=== PATIENT | female | born 2000 | race Caucasian/White ===

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

== ENCOUNTER 2023-05-27 17:27 | Emergency (ER) | payer OTHER, SELFPAY ==
[2023-05-27 17:50] VITALS: BP 130/87; PULSE 112; RESP 18; TEMP 36.9; O2SAT 98; BMI 26.9
--- NOTE | 2023-05-27 17:56 | EXP.UTC ---
Discharge Plan Disposition Patient Disposition: Home, Self-Care Condition: Good Prescriptions Prescriptions: No Action sertraline 50 mg tablet 50 mg PO DAILY Referrals Follow up/Referrals: Dionne Robins APRN [Primary Care Provider] - See instructions Activity Restrictions/Add. Instructions Additional Instructions/Restrictions: Drink plenty of fluids. Take tylenol or ibuprofen for pain or fever. Take the medications as directed. Follow up with your regular doctor. GO TO THE ER FOR ANY WORSENING SYMPTOMS Clinical Impressions Clinical Impression: Acute viral syndrome, Exposure to 2019 novel coronavirus Stand Alone Forms Stand Alone Forms: Work/School Release Instructions Patient Instructions: Coronavirus Disease 2019, Preventing the Spread of Coronavirus Discharge Instructions Discharge ED Provider: [place] [facility] General Stated complaint: exposed to covid , no taste, kacie Time Seen by Provider: 05/27/23 17:56 History of Present Illness Provider Complaint: She states that for the past 2 days she has had sore throat, chills, body aches and low grade fever. She has been exposed to covid-19. Related Data Home Medications Medication Instructions Recorded Confirmed sertraline 50 mg tablet 50 mg PO DAILY 05/27/23 05/27/23 Allergies Allergy/AdvReac Type Severity Reaction Status Date / Time No Known Allergies Allergy Verified 05/27/23 17:58 [facility] Disclaimer: The information contained in this section may have been updated after the patient was seen, as this information can be updated by other users. Social History Smoking Status: Never smoker alcohol intake: never current occupational status: employed Travel in the last 8 weeks: None ROS Obtained: Yes All systems reviewed & no additional complaints except as documented Constitutional Constitutional: Reports chills and Reports fever(s) Eyes Eyes: Denies eye discharge ENT Ears, Nose, Mouth, and Throat: Reports as per HPI Cardiovascular Cardiovascular: Denies chest pain Respiratory Respiratory: Denies chest congestion and Reports cough Gastrointestinal Gastrointestingal: Reports nausea; Denies abdominal pain, constipation, cramping, diarrhea or vomiting Musculoskeletal Musculoskeletal: Denies arthralgias Integumentary/Breasts Skin/Breast: Denies rash Neurologic Neurologic: Denies paresthesias Physical Exam General General appearance: alert and in no apparent distress Head Head exam: atraumatic, normocephalic and normal inspection Eye Eye exam: Present normal appearance, PERRL and EOMI ENT ENT exam: Present normal exam, normal oropharynx, mucous membranes moist, TM's normal bilaterally and normal external ear exam Neck Neck exam: Present normal inspection, full ROM and trachea midline; Absent meningismus or lymphadenopathy Chest Chest inspection: Present normal inspection and symmetric chest wall rise; Absent tenderness Respiratory Respiratory exam: Present normal lung sounds bilaterally; Absent respiratory distress Cardiovascular Cardiovascular exam: Present regular rate and normal rhythm; Absent JVD Abdominal Exam Abdominal exam: Present soft and normal bowel sounds; Absent distention, tenderness or guarding Extremities Exam Extremities exam: Present normal inspection, full ROM and normal capillary refill; Absent calf tenderness Back Exam Back exam: Present normal inspection; Absent tenderness Neurological Exam Neurological exam: Present alert and oriented X3 Psychiatric Psychiatric exam: Present normal affect and normal mood Skin Skin exam: Present warm, dry, intact and normal color Lymphatic Lymphatic Findings: no adenopathy Medical Decision Making Medical Records Medical records reviewed: No I reviewed the patient's medical records. Rasheed Inquiry Pt receiving controlled substance: No Lab Data Lab results reviewed: Yes I reviewed the patient's lab results.
[2023-05-27 18:36] VITALS: BP 130/87; PULSE 112; RESP 18; TEMP 36.9; O2SAT 98
== END 2023-05-27 18:35 | disposition home or self-care (01) ==
PROVIDERS: Emergency Provider Nurse Practitioner Family; PCP Nurse Practitioner Family
DX: R09.81 Nasal congestion (principal); R07.0 Pain in throat; R50.9 Fever, unspecified; R43.9 Unspecified disturbances of smell and taste; Z20.822 Contact with and (suspected) exposure to COVID-19
CPT/HCPCS: 87635; 99203; 99212; G0463

== ENCOUNTER 2025-02-11 09:39 | Outpatient (CLI) | payer OTHER, SELFPAY ==
--- OUTSIDE RECORDS SUMMARY | 2025-02-12 12:39 | XMS_ITS | Clinical Summary ---
Author Organization Healthcare Address [address] [place] [address] Care Team Providers Care Lawn Mower Mechanic Name Role Phone Unavailable Primary Care Provider Unavailabl e Social History Tobacco Use Types Packs/Day Years Used Date Smoking Tobacco: Never Assessed Comments Unknown Sex and Gender Information Value Date Recorded Sex Assigned at Not on file Legal Sex Female 7:27 PM EDT Gender Identity Not on file Sexual Orientation Not on file Plan of Treatment Not on file
== END 2025-02-11 23:59 | disposition home or self-care (01) ==
LOC: LAB.DROPOF 02-12 12:37
PROVIDERS: PCP Nurse Practitioner Obstetrics & Gynecology; Visit Provider Nurse Practitioner Obstetrics & Gynecology
DX: Z34.92 Encounter for supervision of normal pregnancy, unspecified, second trimester (principal)
CPT/HCPCS: 87086

== ENCOUNTER 2025-02-27 14:11 | Outpatient (CLI) | payer OTHER, SELFPAY ==
--- OUTSIDE RECORDS SUMMARY | 2025-02-27 14:14 | XMS_ITS | Referral Summary ---
Author Organization [employer] ([place], [place], [place], [place]) Address [address] [place] [address] Care Team Providers Care Heat Regulator Name Role Phone Unavailable Primary Care Provider Unavailabl e Allergies No known active allergies Social History Tobacco Use Types Packs/Day Years Used Date Smoking Tobacco: Every Day Pipe Smokeless Tobacco: Never Tobacco Cessation:Ready to Q uit: Not Asked; Counseling Given: Not Answered Food Insecurity Answer Date Recorded Food run out past 12 months Not on file 07/10 Food did not last past 12 months Not on file 07/28/2023 Employment Answer Date Recorded Help finding and keeping a job Not on file 0 07/28/2023 Family and Community Support Answer Dante e Recorded Help with Day to Day Activities Not on file 07/28/2023 Feeling Lonely or Isolated Not on file 07/28 Educational Attainment Answer Date Rob rded Speak language other than Hungarian at home Not on file 07/28/2023 Want help with school or training Not on file 07/28/2023 Substance Use Answer Date Recorded Used prescription meds for non-medical reasons N ot on file 07/28/2023 Used illegal drugs past 12 months Not on file 07/28/2023 Comments No Sex and Gender Information Value Date Recorded Sex Assigned at Not on file Legal Sex Female 5:11 PM CDT Gender Identity Not on file Sexual Orientation Not on file Last Filed Vital Signs Vital Sign Reading Time Taken Comments Blood Pressure 135/88 12/17/2022 6:26 PM EDT Pulse 95 12/17/2022 6:26 PM EDT Temperature 37 C (98.6 F) 12/17/2022 6:26 PM EDT Respiratory Rate 16 12/17/2022 6:26 PM EDT Oxygen Saturation 97% 12/17/2022 6:26 PM EDT Inhaled Oxygen Concentration - - Weight 63.5 kg (140 lb) 12/17/2022 6:26 PM EDT Height 160 cm (5' 3 ) 12/17/2022 6:26 PM EDT Body Mass Index 24.8 12/17/2022 6:26 PM EDT Plan of Treatment Not on file Insurance AETNA [facility]
--- OUTSIDE RECORDS SUMMARY | 2025-02-27 14:14 | XMS_ITS | Clinical Summary ---
Author Organization Healthcare Address [address] [place] [address] Care Team Providers Care Badger Distiller Operator Name Role Phone Unavailable Primary Care Provider [...]
--- OUTSIDE RECORDS SUMMARY | 2025-02-27 14:14 | XMS_ITS | Clinical Summary ---
Author Organization [employer] ([place], [place], [place], [place]) Address [address] [place] [address] Care Team Providers Care Direct Marketing Specialist Name Role Phone Unavailable Primary Care Provider [...] 0 07/28/2023 Family and Community Support Answer Datne e Recorded Help with Day to Day Activities Not on file 07/28/2023 Feeling Lonely or Isolated Not on file 07/28 Educational Attainment Answer Date Rob rded Speak language other than Albanian at home Not on file 07/28/2023 Want [...] 12/17/2022 6:26 PM EDT Plan of Treatment Health Maintenance Due Date Last Done Comments Depression Screening (12+) 2014 Tobacco Cessation Counseling and Screening (12+) 09/01 HIV Screening 2017 Meningococcal B Vaccine (1 of 2 - Standard) 2018 Hepatitis C Screening 2020 DTAP/TDAP/TD VACCINES (1 - Tdap) 2021 Pneumococcal Vaccine: 0-49 Years (1 of 2 - PCV) 2021 Lipid Panel 2022 Pap Smear 2023 COVID-19 VACCINE (1 - season) 2024 Influenza Vaccine (#1) 2025 Insurance [facility]
[2025-02-27 17:13] LABS: Hematocrit 30.4 % (37.0-47.0); Hemoglobin 10.0 g/dL (12.2-16.2); Immature Granulocytes % 1.3 %; Mean Corpuscular HGB Conc 32.9 g/dL (31.8-35.4); Mean Corpuscular Hemoglobin 28.2 pg (27.0-31.2); Mean Corpuscular Volume 85.6 fl (81-99); Nucleated Red Blood Cells % 0 %; Platelet Count 258 K/mm3 (142-424); Red Blood Count 3.55 M/mm3 (4.20-5.40); Red Cell Distribution Width-SD 40.5 fL; White Blood Count 11.7 K/mm3 (4.8-10.8)
[2025-02-27 17:19] LABS: Glucose 1 Hour 115 mg/dL (74-100)
[2025-02-28 09:41] LABS: RPR W/RFX Titers Nonreactive (Nonreactive)
== END 2025-02-27 23:59 | disposition home or self-care (01) ==
LOC: LAB 14:12
PROVIDERS: Visit Provider Obstetrics & Gynecology
DX: Z34.92 Encounter for supervision of normal pregnancy, unspecified, second trimester (principal)
CPT/HCPCS: 36415; 82947; 85025; 86592

== ENCOUNTER 2025-03-11 11:47 | Outpatient (CLI) | payer OTHER, SELFPAY ==
--- OUTSIDE RECORDS SUMMARY | 2025-03-11 11:58 | XMS_ITS | Clinical Summary ---
Author Organization Healthcare Address [address] [place] [address] Care Team Providers Care Grill Cook Name Role Phone Unavailable Primary Care Provider [...]
--- OUTSIDE RECORDS SUMMARY | 2025-03-11 11:58 | XMS_ITS | Referral Summary ---
Author Organization [employer] ([place], [place], [place], [place]) Address [address] [place] [address] Care Team Providers Care Malt House Supervisor Name Role Phone Unavailable Primary Care Provider [...] Date Rob rded Speak language other than Trinidadian at home Not on file 07/28/2023 Want [...] of Treatment Not on file Insurance [employer]ETNA [facility]
--- OUTSIDE RECORDS SUMMARY | 2025-03-11 11:58 | XMS_ITS | Clinical Summary ---
Author Organization [email or web address] ([place], [place], [place], [place]) Address [address] [place] [address] Care Team Providers Care Taste Tester Name Role Phone Unavailable Primary Care Provider [...] Date Rob rded Speak language other than Kenyan at home Not on file 07/28/2023 Want [...] 2024 Influenza Vaccine (#1) 2025 Insurance AETNA [facility]
[2025-03-11] MEDS: RHO(D) IMMUNE GLOBULIN 1,500 UNIT (300MCG) SYRINGE 300 MCG IM (14:01)
[2025-03-11 14:03] VITALS: BP 120/68; PULSE 102; RESP 18; O2SAT 99
[2025-03-11 17:11] LABS: Ferritin 5.50 ng/ml (6.24-137)
== END 2025-03-11 14:03 | disposition home or self-care (01) ==
LOC: INF 11:47
PROVIDERS: Visit Provider Obstetrics & Gynecology
DX: Z34.83 Encounter for supervision of other normal pregnancy, third trimester (principal); Z67.91 Unspecified blood type, Rh negative; Z3A.00 Weeks of gestation of pregnancy not specified
CPT/HCPCS: 36415; 82728; 96372; J2790

== ENCOUNTER 2025-03-19 10:37 | Outpatient (CLI) | payer OTHER, SELFPAY ==
--- OUTSIDE RECORDS SUMMARY | 2025-03-19 10:53 | XMS_ITS | Clinical Summary ---
Author Organization Healthcare Address [address] [place] [address] Care Team Providers Care Mobile Practice Lead Name Role Phone Unavailable Primary Care Provider [...]
--- OUTSIDE RECORDS SUMMARY | 2025-03-19 10:53 | XMS_ITS | Referral Summary ---
Author Organization [employer] ([place], [place], [place], [place]) Address [address] [place] [address] Care Team Providers Care Rock Climbing Instructor Name Role Phone Unavailable Primary Care Provider [...] Date Rob rded Speak language other than Gibraltarian at home Not on file 07/28/2023 Want [...] of Treatment Not on file Insurance [employer]ETNA [facility]
--- OUTSIDE RECORDS SUMMARY | 2025-03-19 10:53 | XMS_ITS | Clinical Summary ---
Author Organization [facility] ([place], [place], [place], [place]) Address [address] [place] [address] Care Team Providers Care Compressor Stations Superintendent Name Role Phone Unavailable Primary Care Provider [...] Date Rob rded Speak language other than Norwegian at home Not on file 07/28/2023 Want [...] Pap Smear 2023 COVID-19 VACCINE (1 - 2023- season) 2025 Influenza Vaccine (#1) 2025 Insurance [employer]ETNA [facility]
[2025-03-19 11:03] VITALS: BP 101/64; PULSE 105; RESP 18; O2SAT 98
[2025-03-19] MEDS: IRON SUCROSE COMPLEX 300 MG in 0.9 % SODIUM CHLORIDE 250 ML 220 MG IV (11:03)
[2025-03-19 12:10] VITALS: BP 117/69; PULSE 101; RESP 18; O2SAT 99
== END 2025-03-19 12:10 | disposition home or self-care (01) ==
LOC: INF 10:39
PROVIDERS: PCP Obstetrics & Gynecology; Visit Provider Obstetrics & Gynecology
DX: O99.019 Anemia complicating pregnancy, unspecified trimester (principal); D64.9 Anemia, unspecified; Z3A.00 Weeks of gestation of pregnancy not specified
CPT/HCPCS: 96365; J1756; J7050

== ENCOUNTER 2025-03-26 10:27 | Outpatient (CLI) | payer OTHER, SELFPAY ==
--- OUTSIDE RECORDS SUMMARY | 2025-03-26 10:33 | XMS_ITS | Clinical Summary ---
Author Organization Healthcare Address [address] [place] [address] Care Team Providers Care Atm Mechanic Name Role Phone Unavailable Primary Care [...]
--- OUTSIDE RECORDS SUMMARY | 2025-03-26 10:33 | XMS_ITS | Clinical Summary ---
Author Organization [employer] ([place], [place], [place], [place]) Address [address] [place] [address] Care Team Providers Care Residential Sales Manager Name Role Phone Unavailable Primary Care Provider [...] Date Rob rded Speak language other than Croatian at home Not on file 07/28/2023 Want [...] 2025 Influenza Vaccine (#1) 2025 Insurance [facility] [facility]
--- OUTSIDE RECORDS SUMMARY | 2025-03-26 10:33 | XMS_ITS | Referral Summary ---
Author Organization [employer] ([place], [place]) Address [address] [place] [address] Care Team Providers Care Machine I Coremaker Name Role Phone Unavailable Primary Care Provider [...] Date Rob rded Speak language other than French at home Not on file 07/28/2023 Want [...] of Treatment Not on file Insurance [facility] [facility]
[2025-03-26] MEDS: IRON SUCROSE COMPLEX 300 MG in 0.9 % SODIUM CHLORIDE 250 ML 176.67 MG IV (10:49)
[2025-03-26 10:50] VITALS: BP 113/62; PULSE 72; RESP 18; TEMP 36.8; O2SAT 100
[2025-03-26 11:20] VITALS: BP 121/69; PULSE 75
[2025-03-26 12:00] VITALS: BP 118/71; PULSE 72; O2SAT 99
== END 2025-03-26 13:10 | disposition home or self-care (01) ==
LOC: INF 10:28
PROVIDERS: Visit Provider Obstetrics & Gynecology
DX: O99.019 Anemia complicating pregnancy, unspecified trimester (principal); Z3A.00 Weeks of gestation of pregnancy not specified
CPT/HCPCS: 96365; J1756; J7050

== ENCOUNTER 2025-04-03 11:39 | Outpatient (CLI) | payer OTHER, SELFPAY ==
--- OUTSIDE RECORDS SUMMARY | 2025-04-03 11:41 | XMS_ITS | Clinical Summary ---
Author Organization Healthcare Address [address] [place] [address] Care Team Providers Care Statue Maker Name Role Phone Unavailable Primary Care Provider [...]
[2025-04-03 11:55] VITALS: BP 115/64; PULSE 110; RESP 17
[2025-04-03] MEDS: IRON SUCROSE COMPLEX 300 MG in 0.9 % SODIUM CHLORIDE 250 ML 177 MG IV (11:55)
[2025-04-03 13:00] VITALS: BP 111/67; PULSE 92; RESP 16; O2SAT 100
== END 2025-04-03 23:59 | disposition home or self-care (01) ==
LOC: INF 11:40
PROVIDERS: Visit Provider Obstetrics & Gynecology
DX: O99.019 Anemia complicating pregnancy, unspecified trimester (principal); Z3A.00 Weeks of gestation of pregnancy not specified
CPT/HCPCS: 96365; J1756; J7050

== ENCOUNTER 2025-04-24 13:26 | Outpatient (CLI) | payer OTHER, SELFPAY ==
--- NOTE | 2025-04-24 13:30 | US_ITS ---
PROCEDURE: US OB BIOPHYSICAL PROFILE CLINICAL INDICATION: SGA COMPARISON: No exams were available for comparison FINDINGS: Transabdominal sonographic images of the uterus were obtained. From her established due date she is 35weeks 5days. The following parameters are obtained: Viable Fetus in the cephalic presentation with an anterior placenta grade 2. Average ultrasound age is 35weeks 4days Estimated weight 2,723g, 6 lb 0 oz The cervix measures 3.29 cm in length Measurements: heart Rate = 136bpm BPD = 36weeks 0 days, 63 percentile HC = 35weeks 6days, 20 percentile AC = 36weeks 4days, 79 percentile FL = 33weeks 5days, 5 percentile HC/AC is 0.98 FL/BPD is 0.73 FL/AC is 0.2 47 percentile Amniotic fluid index: 17.58cm, MVP 6.94 cm Qualitative AFV:2 Breathing movements: 2 Gross Body Movements: 2 Tone: 2 Biophysical profile score: 8 No obvious anomalies evident.Kidneys, profile, stomach, bladder, four-chamber heart, three-vessel cord appear normal. IMPRESSION: 1. Viable fetus in the cephalic presentation with an anterior placenta grade 2. 2. The fluid is within normal limits with an amniotic fluid index 17.58 cm, MVP 6.94 cm. 3. Biophysical profile is 8/8 with good breathing movement and movement seen. 4. There has been good interval growth with the fetus currently 47th percentile. 5. Limited anatomical scan appears normal. Dictated by: Barrera Hebert MD 04/25/2025 08:37 Barrera Hebert MD in [place] 04/25/2025 08:37
--- OUTSIDE RECORDS SUMMARY | 2025-04-24 13:31 | XMS_ITS | Clinical Summary ---
Author Organization [employer] ([place], [place], [place], [place]) Address [address] [place] [address] Care Team Providers Care Manager Country Name Role Phone Unavailable Primary Care Provider [...] Date Rob rded Speak language other than Ethiopian at home Not on file 07/28/2023 Want [...] 2025 Influenza Vaccine (#1) 2025 Insurance AETNA [facility]
--- OUTSIDE RECORDS SUMMARY | 2025-04-24 13:31 | XMS_ITS | Clinical Summary ---
Author Organization Healthcare Address [address] [place] [address] Care Team Providers Care Ratings Analyst Name Role Phone Unavailable Primary Care Provider [...]
--- OUTSIDE RECORDS SUMMARY | 2025-04-24 13:31 | XMS_ITS | Referral Summary ---
Author Organization [employer] ([place], [place], [place], [place]) Address [address] [place] [address] Care Team Providers Care Distance Education Coordinator Name Role Phone Unavailable Primary Care Provider [...] Date Rob rded Speak language other than Argentine at home Not on file 07/28/2023 Want [...] of Treatment Not on file Insurance AETNA [facility]
--- OUTSIDE RECORDS SUMMARY | 2025-04-24 13:31 | XMS_ITS | Data Portability ---
Author Organization [facility] Address [address] [place] [address] Assessment No assessment recorded. Plan of Treatment Reminders Order Date Submit Date Provider Last Modified By Organization Details Last Modified Time Details Appointments None record ed. Lab urinal ysis, dipsti ck 2024 025 abelardo [place]ford Manager [employer], [address] [place] [address] , [place], [address], 5 11:05:07 urinal ysis, dipsti ck 2024 025 adrian [employer] Manager [employer], [address] [place] [address] , [place], [address], 5 14:48:34 urinal ysis, dipsti ck 2024 025 adrian [place] Manager [employer], [address] [place] [address] , [place], [address], 5 12:08:29 afp (alpha -fetop rotein ) panel, matern al screen , serum 2024 025 JENNIFER [facility], [address], [address], [place], [address], 5 03:08:05 urinal ysis, dipsti ck [id number] [place] [address] Manager Federal, [address] [place] [address] , [place], [address], 5 11:31:04 cytolo gy report , thin prep, smear or scrapi ng, cervic al or vagina l 2024 025 JENNIFER [facility], [address], [address], [place], [address], 5 22:10:46 cultur e, urine 2024 025 JENNIFER [facility], [address], [address], [place], [address], 5 22:10:45 urinal ysis, dipsti ck 2024 025 [facility] Manager [employer], [address] [place] [address] , [place], [address], 5 11:19:07 STI panel 2024 025 FOLSOM [facility], [address], [address] [address], [place], [address], 5 13:20:46 Referral None record ed. Procedures None record ed. Surgeries None record ed. Imaging US, obstet guido, 2nd trimes ter [address] Manager Federal, [address] [place] [address] , [place], [address], 5 14:49:10 US, obstet guido, transv aginal [address] Manager Federal, [address] [place] [address] , [place], [address], 5 14:49:10 US, obstet guido, transv aginal 2024 025 [email or web address], [address] [facility] , [place], [address], 11:29:28 Medication Orders None record ed. Patient TargetsNo targets recorded. Patient Instructions Encounter Date Encounter Id Patient Instructions Last Modified By Organization Details Last Modified Time 11/17/2024 [id number] body mass index: care instructions [email or web address] Not available 11/17/2024 11:19:07 learning about healthy weight [email or web address] Not available 11/17/2024 11:19:07 high-risk : care instructions [email or web address] Not available 11/17/2024 11:19:07 12/16/2024 [id number] high-risk : care instructions [email or web address] Not available 12/16/2024 11:29:28 02/10/2025 [id number] high-risk : care instructions abelardo Not available 02/10/2025 11:05:07 Reason for Referral None Reported. Results Created Date Observation Date Name Description Value Unit Range Abnormal Flag Note LastModifiedBy Organization Detail LastModifiedTime 10/28/1910/31/2024 MATER NIT21 PLUS CORE gestation Single ton Not Available [facility] ([facility]) [address] [place], [address], 10/31/2024 09:07:44 10/28/19 25 10/31/2024 MATER NIT21 PLUS CORE fraction 13% Not Available [facility] ([facility]) [address] [place], [address], 10/31/2024 09:07:44 10/28/1910/31/2024 MATER NIT21 PLUS CORE gestational age > or = 9W: Yes Not Available [facility] ([facility]) [address] [place], [address], 10/31/2024 09:07:44 10/28/19 25 10/31/2024 MATER NIT21 PLUS CORE test result Negati ve Not Available [facility] ([facility]) [address] [place], [address], 10/31/2024 09:07:44 10/28/1910/31/2024 MATER NIT21 PLUS CORE solar lab technician comments Reyna Hobbs speci men showe d an expec elle repre senta tion of chrom osome 21, 18 and 13 mater ial. Clini vanessa corre latio n is suglorenzo devriesd. Not Available [facility] ([facility]) [address] [facility], [place], [address], 10/31/2024 09:07:44 10/28/1910/31/2024 MATER NIT21 PLUS CORE approved by Reyna davis MD, PhD, [facility], [place] Labor atori es Not Available [facility] ([facility]) [address] [facility], [place], [address], 10/31/2024 09:07:44 10/28/1910/31/2024 MATER NIT21 PLUS CORE trisomy 21 (down syndrome) Negati ve Not Available [facility] ([facility]) [address] [facility], [place], [address], 10/31/2024 09:07:44 10/28/1910/31/2024 MATER NIT21 PLUS CORE trisomy 18 (hunter syndrome) Negati ve Not Available [facility] ([facility]) [address] [place], [address], 10/31/2024 09:07:44 10/28/1910/31/2024 MATER NIT21 PLUS CORE trisomy 13 (patau syndrome) Negati ve Not Available [facility] ([facility]) [address] [facility], [place], [address], 10/31/2024 09:07:44 10/28/1910/31/2024 MATER NIT21 PLUS CORE sex Reyna weiss Consi stent with Male Not Available [facility] ([facility]) [address] [place], [address], 10/31/2024 09:07:44 10/28/1910/31/2024 MATER NIT21 PLUS CORE negative predictive value Note The Negat mikey Predi ctive Value (NPV) for triso my 21, 18, and 13 is great er than 99%. The NPV for SCA and ESS canno t be calcu lated as SCA and ESS are only repor elle when an abnor malit y is detec elle. Not Available [facility] ([facility]) [address] [facility], [place], [address], 10/31/2024 09:07:44 10/28/1910/31/2024 MATER NIT21 PLUS CORE positive predictive value N/A Not Available [facility] ([facility]) [address] [facility], [place], [address], 10/31/2024 09:07:44 10/28/1910/31/2024 MATER NIT21 PLUS CORE about the test Commen t The Mater niT(R ) 21 PLUS labor atory -deve loped test (LDT) cha zes circu latin g cell- free DNA from a mater nal blood sampl e. This test is used for scree sofia purpo ses and not diagn ostic . Clini vanessa corre latio n is recom sulaiman d. Valid ation data on twin pregn ancie s is limit ed and the abili ty of this test to detec t aneup loidy in highe r multi ple gesta tions has not yet been valid ated. Not Available [facility] ([facility]) [address] [facility], [place], [address], 10/31/2024 09:07:44 10/28/1910/31/2024 MATER NIT21 PLUS CORE test method Commen t See Notes Circu latin g cell- free DNA was purif ied from the plasm a compo nent of mater nal blood . The extra cted DNA was then conve rted into a Intean Po[place]ath Rong[place]g DNA danish ry for aneup loidy cha sis of chrom osome s 21, 18, and 13 via next gener ation seque ncing .[1] Optio nal findi ngs based on the test order inclu de sex chrom osome aneup loidy (SCA) [2], and enhan susu seque ncing serie s (ESS) [3], which will only be repor elle on as an addit ional findi ng when an abnor malit y is detec elle. SCA testi ng inclu elizabeth infor matio n on X and Y repre senta tion, while ESS testi ng inclu elizabeth delet ions in selec elle regio ns (22q, 15q, 11q, 8q, 5p, 4p, 1p) and triso my of chrom osome s 16 and 22. Not Available [facility] ([facility]) [address] [facility], [place], [address], 10/31/2024 09:07:44 10/28/1910/31/2024 MATER NIT21 PLUS CORE performance Commen t The perfo rmanc e lima cteri stics of the Mater niT(R ) 21 PLUS labor atory -deve loped test (LDT) have been deter mined in a clini vanessa valid ation study with pregn ant women at incre ased risk for chrom osoma l aneup loidy .[1-4 ] Not Available [facility] ([facility]) [address] [facility], [place], [address], 10/31/2024 09:07:44 10/28/1910/31/2024 MATER NIT21 PLUS CORE performance characterist ics Note ----- ----- ----- ----- ----- ----- ----- ----- ----- ----- ----- ---- ! Sex ! Accur acy: 99.4% ! !---- ----- ----- ----- ----- ----- ----- ----- ----- ----- ----- ---! ! Regio n (apolinar bonilla d syndr ome) ! Est. Sens# ! Est. Spec ! !---- ----- ----- ----- ----- ----- ----- ----- ----- ----- ----- ---! ! Torsten my 21 (Down Syndr ome) ! 99.1% ! 99.9% ! !---- ----- ----- ----- ----- ----- ----- ----- ----- ----- ----- ---! ! Omiddyan my 18 (Edwa rds Syndr ome) ! >99.9 % ! 99.6% ! !---- ----- ----- ----- ----- ----- ----- ----- ----- ----- ----- ---! ! Torsten my 13 (Pata u Syndr ome) ! 91.7% ! 99.7% ! !---- ----- ----- ----- ----- ----- ----- ----- ----- ----- ----- ---! ! Sex Chrom osome Aneup hector es## ! 96.2% ! 99.7% ! !---- ----- ----- ----- ----- ----- ----- ----- ----- ----- ----- ---! * As ravi almeida in ISCA datab ase nstd3 7 [http s://bipin flores.gris bi.nl .nih .gov/ beliavar /stud ies/n std37 / ] # Estim ated Sensi tivit y. Sensi tivit y estim ated acros s the obser prudence size distr ibuti on of each syndr ome [per ISCA datab ase nstd3 7] and acros s the range of fract ions obser prudence in routi ne clini vanessa NIPT. Actua l sensi tivit y can also be influ enced by other facto rs such as the size of the event , total seque nce count s, ampli ficat ion bias, or seque nce bias. ## Singl eton gesta tion only. Not Available [facility] ([facility]) [address], [place], [address], 10/31/2024 09:07:44 10/28/1910/31/2024 MATER NIT21 PLUS CORE limitations of the test Commen t While the resul ts of these tests are highl y relia ble, disco rdant resul ts, inclu ding inacc urate sex predi ction , may occur due to place ntal, mater nal, or mosai cism or neopl asm; vanis khloe twin; prior mater nal organ trans plant ; or other cause s. These tests are scree sofia tests and not diagn ostic ; they do not repla ce the accur acy and preci gumaro of prena jesus alberto diagn osis with CVS or amnio cente sis. A patie nt with a posit mikey test resul t shoul d be refer red for tay ic couns eling and offer ed invas mikey prena jesus alberto diagn osis for confi rmati on of test resul ts.[5 ] The resul ts of this testi ng, inclu ding the benef its and limit ation s, shoul d be discu ssed with a quali fied healt hcare provi jeri. Pregn donis manag ement decis ions, inclu ding termi natio n of the pregn donis, shoul d not be based on the resul ts of these tests alone . The healt hcachristopher provi jeri is respo nsibl e for the use of this infor matio n in the manag ement of their patie nt. Sex chrom osoma l aneup loidi es are not repor table for known multi ple gesta tions . A negat mikey resul t does not ensur e an unaff ected pregn donis nor does it exclu de the possi bilit y of other chrom osoma l abnor malit ies or defec ts which are not a part of these tests . An uninf ormat mikey resul t may be repor elle, the cause s of which may inclu de, but are not limit ed to, insuf ficie nt seque ncing cover age, noise or artif acts in the regio n, ampli ficat ion or seque ncing bias, or insuf ficie nt fract ion. These tests are not inten ded to ident falguni pregn ancie s at risk for neura l tube defec ts or ventr al wall defec ts. Testi ng for whole chrom osome abnor malit ies (incl uding sex chrom osome s) and for subch romos omal abnor malit ies could lead to the poten tial disco very of both and mater nal genom ic abnor malit ies that could have major , minor , or no, clini vanessa signi fican ce. Evalu ating the signi fican ce of a posit mikey or a non-r eport able resul t may invol ve both invas mikey testi ng and addit ional studi es on the mothe r. Such inves tigat ions may lead to a diagn osis of mater nal chrom osoma l or subch romos omal abnor malit ies, which on occas ion may be assoc iated with benig n or malig nant mater nal neopl asms. These tests may not accur ately ident falguni tripl oidy, paula susu rearr angem ents, or the preci se locat ion of subch romos omal dupli catio ns or delet ions; these may be detec elle by prena jesus alberto diagn osis with CVS or amnio cente sis. The abili ty to repor t resul ts may be impac elle by mater nal BMI, mater nal weigh t, mater nal syste lois lupus eryth emato rashawn (SLE) and/o r by certa in pharm aceut ical agent s such as low molec ular weigh t hepar in (for examp le: Loven ox(R) , Xapar in(R) , Clexa ne(R) and Fragm in(R) ). Not Available [facility] ([facility]) [address] [facility], [place], [address], 10/31/2024 09:07:44 10/28/1910/31/2024 MATER NIT21 PLUS CORE note Commen t See Notes [employer] is a subsi diary of Labor atory Corpo ratio n of [employer], using the brand [employer]. This test was devel oped and its perfo rmanc e lima cteri stics deter mined by [employer]. It has not been clear ed or appro prudence by the Food and Drug Admin istra tion. This labor atory is certi fied under the Clini vanessa Labor atory Impro vemen t Amend ments (CLIA ) as quali fied to perfo rm high compl exity clini vanessa labor atory testi ng and accre dited by the Lety ventura of Ameri can Patho logis ts (CAP) . If there is futur e clini vanessa need for addin g Mater niT GENOM E testi ng, this speci men will be avail able until term. [facility] sampl es will not be retai eddie beyon d 60 days. [facility] patie nts will have to send a new sampl e for re-se quenc ing ([facility] Test Code: 61630 4). Not Available [facility] ([facility]) [address] [facility], [place], [address], 10/31/2024 09:07:44 10/28/1910/31/2024 MATER NIT21 PLUS CORE references Commen t 1. Yodit VENTURA, et al. Tay Med. 2012; 14(3) :296- 305. 2. Tatiana GARCES, et al. Prena t Diag. 2013; 33(6) :591- 597. 3. Lowell C, et al. Clin Chem. 2015 Oct;6 1(4): 608-6 16. 4. Yodit VENTURA, et al. Tay Med. 2011; 13(11 ):913 -920. 5. ACOG/ SMFM Pract ice Bulle tin No. 226, Apr 2020. Not Available [facility] ([facility]) [address] [facility], [place], [address], 10/31/2024 09:07:44 10/28/19 25 10/31/2024 MATER NIT21 PLUS CORE pdf . Not Available [facility] ([facility]) [address] [facility], [place], [address], 10/31/2024 09:07:44 11/18/19 25 11/18/2024 URINE CULTU RE, ROUTI NE urine culture, routine Final report Not Available [facility] ([facility]) [address] [facility], [place], [address], 11/18/2024 22:10:45 11/18/1911/18/2024 URINE CULTU RE, ROUTI NE result 1 No growth Not Available [facility] ([facility]) [address] [facility], [place], [address], 11/18/2024 22:10:45 11/18/19 25 11/18/2024 IGP,C TNGTV ,RFX APTIM A HPV ASCU diagnosis: Commen t NEGAT MIKEY FOR INTRA EPITH ELIAL MARIAN N OR GEORGE KEMP . Not Available [facility] ([facility]) [address] [facility], [place], [address], 11/18/2024 22:10:46 11/18/19 25 11/18/2024 IGP,C TNGTV ,RFX APTIM A HPV ASCU specimen adequacy: Commen t Satis facto ry for evalu ation . Endoc ervic al and/o r squam ous metap lasti c cells (endo cervi vanessa compo nent) are prese nt. Not Available [facility] ([facility]) [address] [facility], [place], [address], 11/18/2024 22:10:46 11/18/19 25 11/18/2024 IGP,C TNGTV ,RFX APTIM A HPV ASCU clinician provided ICD10: Commen t Z12.4 Z11.3 Not Available [facility] ([facility]) [address] [facility], [place], [address], 11/18/2024 22:10:46 11/18/1911/18/2024 IGP,C TNGTV ,RFX APTIM A HPV ASCU performed by: Reyna Mccormick , Cytol ogorlin (ASCP ) Not Available [facility] ([facility]) [address] [place], [address], 11/18/2024 22:10:46 11/18/1911/18/2024 IGP,C TNGTV ,RFX APTIM A HPV ASCU . . Not Available [facility] ([facility]) [address] [facility], [place], [address], 11/18/2024 22:10:46 11/18/1911/18/2024 IGP,C TNGTV ,RFX APTIM A HPV ASCU note: Reyna weiss The Pap smear is a scree sofia test desig eddie to aid in the detec tion of benjamin ligna nt and malig nant condi tions of the uteri ne cervi x. It is not a diagn ostic proce dure and shoul d not be used as the sole means of detec ting cervi vanessa cance r. Both false -posi tive and false -nega tive repor ts do occur . Not Available [facility] ([facility]) [address] [facility], [place], [address], 11/18/2024 22:10:46 11/18/1911/18/2024 IGP,C TNGTV ,RFX APTIM A HPV ASCU test methodology: Reyna weiss This liqui d based ThinP rep(R ) pap test was scree eddie with the use of an image guide husam thorne Not Available [facility] ([facility]) [address] [place], [address], 11/18/2024 22:10:46 11/18/19 25 11/18/2024 IGP,C TNGTV ,RFX APTIM A HPV ASCU . Commen t The HPV DNA refle x crite yulia were not met with this speci men resul t there fore, no HPV testi ng was perfo rmed. Not Available [facility] ([facility]) [address] [place], [address], 11/18/2024 22:10:46 11/18/19 25 11/18/2024 IGP,C TNGTV ,RFX APTIM A HPV ASCU chlamydia, nuc. acid amp Negati ve negati ve Not Available [facility] ([facility]) [address] [place], [address], 11/18/2024 22:10:46 11/18/19 25 11/18/2024 IGP,C TNGTV ,RFX APTIM A HPV ASCU gonococcus, nuc. acid amp Negati ve negati ve Not Available [facility] ([facility]) [address] [place], [address], 11/18/2024 22:10:46 11/18/19 25 11/18/2024 IGP,C TNGTV ,RFX APTIM A HPV ASCU trich vag by LEVAR Negati ve negati ve Not Available [facility] ([facility]) [address] [place], [address], 11/18/2024 22:10:46 11/18/19 25 11/20/2024 NUSWA B VG PLUS+ MYCOP LASMA S,LEVAR atopobium vaginae High - 2 score abnormal Not Available [facility] ([facility]) [address] [place], [address], 11/21/2024 13:20:46 11/18/19 25 11/20/2024 NUSWA B VG PLUS+ MYCOP LASMA S,LEVAR bvab 2 High - 2 score abnormal Not Available [facility] ([facility]) [address] [place], [address], 11/21/2024 13:20:46 11/18/19 25 11/20/2024 NUSWA B VG PLUS+ MYCOP LASMA S,LEVAR megasphaera 1 High - 2 score abnormal Calcu late total score by maynor rockwell the 3 indiv idual bacte rial vagin osis (BV) marke r score s toget her. Total score is inter prete d as follo ws: Total score 0-1: Indic ates the absen ce of BV. Total score 2: Indet ermin ate for BV. Addit ional clini vanessa data shoul d be evalu ated to estab raquel a diagn osis. Total score 3-6: Indic ates the prese nce of BV. Not Available [facility] ([facility]) [address] [facility], [place], [address], 11/21/2024 13:20:46 11/18/19 25 11/20/2024 NUSWA B VG PLUS+ MYCOP LASMA S,LEVAR caleb albicans, LEVAR Negati ve negati ve Not Available [facility] ([facility]) [address] [place], [address], 11/21/2024 13:20:46 11/18/19 25 11/20/2024 NUSWA B VG PLUS+ MYCOP LASMA S,LEVAR caleb glabrata, LEVAR Negati ve negati ve Not Available [facility] ([facility]) [address] [place], [address], 11/21/2024 13:20:46 11/18/19 25 11/20/2024 NUSWA B VG PLUS+ MYCOP LASMA S,LEVAR trich vag by LEVAR Negati ve negati ve Not Available [facility] ([facility]) [address] [place], [address], 11/21/2024 13:20:46 11/18/19 25 11/20/2024 NUSWA B VG PLUS+ MYCOP LASMA S,LEVAR chlamydia trachomatis, LEVAR Negati ve negati ve Not Available [facility] ([facility]) [address] [facility], [place], [address], 11/21/2024 13:20:46 11/18/19 25 11/20/2024 NUSWA B VG PLUS+ MYCOP LASMA S,LEVAR neisseria gonorrhoeae, LEVAR Negati ve negati ve Not Available [facility] ([facility]) [address] [facility], [place], [address], 11/21/2024 13:20:46 11/18/19 25 11/20/2024 NUA B VG PLUS+ MYCOP LASMA S,LEVAR mycoplasma hominis LEVAR Negati ve negati ve Not Available [facility] ([facility]) [address] [facility], [place], [address], 11/21/2024 13:20:46 11/18/19 25 11/20/2024 NUA B VG PLUS+ MYCOP LASMA S,LEVAR ureaplasma spp LEVAR Positi ve negati ve abnormal Not Available [facility] ([facility]) [address] [facility], [place], [address], 11/21/2024 13:20:46 11/18/19 25 11/21/2024 NUSWA B VG PLUS+ MYCOP LASMA S,LEVAR mycoplasma genitalium LEVAR Negati ve negati ve Not Available [facility] ([facility]) [address] [place], [address], 11/21/2024 13:20:46 12/17/19 25 12/17/2024 AFP, SERUM , OPEN SPINA BIFID A comment: Reyna davidson , Ph.D. , [facility] Direc tor Refer ences : Avail able Upon Reque st. Multi ples Of Media n Cutof fs For AFP [place] tions Singl eton 2.5 Black 2.8 IDD 2.0 Twins 4.5 Abbre viati on Defin ition s IDD - Insul in Dep Diabe sandor OSBR - Open Spina Bifid a Risk For furth er inqui cristofer conta ct [facility] Tay ics Servi jesus at [phone] GENE. This test was cici fagan and its perfo rmanc e lima cteri stics deter mined by [facility]. It has not been clear ed or appro prudence by the Food and Drug Admin istra tion. Not Available [facility] ([facility]) [address] [place], [address], 12/20/2024 03:08:05 12/17/19 25 12/19/2024 AFP, SERUM , OPEN SPINA BIFID A results Report Not Available [facility] ([facility]) [address] [place], [address], 12/20/2024 03:08:05 12/17/19 25 12/19/2024 AFP, SERUM , OPEN SPINA BIFID A test results: *Scree n Negati ve* Not Available [facility] ([facility]) [address] [facility], [place], [address], 12/20/2024 03:08:05 12/17/19 25 12/19/2024 AFP, SERUM , OPEN SPINA BIFID A gest. age on collection date 16.4 weeks Not Available [facility] ([facility]) [address] [place], [address], 12/20/2024 03:08:05 12/17/19 25 12/19/2024 AFP, SERUM , OPEN SPINA BIFID A gestat. age based on BRAYAN 05/30 Recal culat ions are not recom sulaiman d when gesta alo l datin g by LMP and ultra sound are withi n 10 days. Not Available [facility] ([facility]) [address] [place], [address], 12/20/2024 03:08:05 12/17/19 25 12/19/2024 AFP, SERUM , OPEN SPINA BIFID [age] Not Available [facility] ([facility]) [address] [place], [address], 12/20/2024 03:08:05 12/17/19 25 12/19/2024 AFP, SERUM , OPEN SPINA BIFID A race Caucas eleni Not Available [facility] ([facility]) [address] [place], [address], 12/20/2024 03:08:05 12/17/19 25 12/19/2024 AFP, SERUM , OPEN SPINA BIFID A weight 158 lbs Not Available [facility] ([facility]) [address] [place], [address], 12/20/2024 03:08:05 12/17/19 25 12/19/2024 AFP, SERUM , OPEN SPINA BIFID A insulin dep diabetes Yes Not Available [facility] ([facility]) [address] [place], [address], 12/20/2024 03:08:05 12/17/19 25 12/19/2024 AFP, SERUM , OPEN SPINA BIFID A multiple gestation No Not Available [facility] ([facility]) [address] [place], [address], 12/20/2024 03:08:05 12/17/19 25 12/19/2024 AFP, SERUM , OPEN SPINA BIFID A AFP value 46.7 NG/mL Not Available [facility] ([facility]) [address] [place], [address], 12/20/2024 03:08:05 12/17/19 25 12/19/2024 AFP, SERUM , OPEN SPINA BIFID A AFP MOM 1.73 Not Available [facility] ([facility]) [address] [place], [address], 12/20/2024 03:08:05 12/17/19 25 12/19/2024 AFP, SERUM , OPEN SPINA BIFID A OSBR risk 1 in 452 Not Available [facility] ([facility]) [address] [facility], [place], [address], 12/20/2024 03:08:05 12/17/19 25 12/19/2024 AFP, SERUM , OPEN SPINA BIFID A interpretati on Commen t Inter preta tion: Scree n Negat mikey This resul t is scree n negat mikey for OSB. The AFP MoM calcu lated is based on the gesta alo l age provi ded. MS-AF P can ident falguni up to 80% of open neura l tube defec ts. Close d neura l tube defec ts and some open defec ts may not be detec elle by this test. This test does not scree n for Down Syndr ome or Triso my 18. If scree sofia for Down Syndr ome or Triso my 18 is scott ed, conta ct Tay ic Custo joshua Servi jesus to discu ss avail able optio ns. The [facility] can Colle ge of Obste trici ans and Gynec ologi sts recom mends amnio cente sis be offer ed to women age 35 and older . Not Available [facility] ([facility]) [address], [place], [address], 12/20/2024 03:08:05 12/17/19 25 12/19/2024 AFP, SERUM , OPEN SPINA BIFID A pdf . Not Available [facility] ([facility]) [address] [facility], [place], [address], 12/20/2024 03:08:05 02/03/20 25 02/02/2025 URINA LYSIS COMPL ETE note See Note Order ing Provi jeri: STORM Baker CNM Not Available [address] , [place], [address], 02/02/2025 01:01:59 02/03/20 25 02/02/2025 URINA LYSIS COMPL ETE UA method of collection CLEAN CATCH Not Available [address] [place], [address], 02/02/2025 01:01:59 02/03/2002/02/2025 URINA LYSIS COMPL ETE UA color YELLOW yellow Not Available [address] [place], [address], 02/02/2025 01:01:59 02/03/2002/02/2025 URINA LYSIS COMPL ETE UA appearance CLEAR clear Not Available [address] [place], [address], 02/02/2025 01:01:59 02/03/2002/02/2025 URINA LYSIS COMPL ETE UA glucose dipstick NEGATI VE negati ve Not Available [address] [place], [address], 02/02/2025 01:01:59 02/03/2002/02/2025 URINA LYSIS COMPL ETE UA bilirubin dipstick NEGATI VE negati ve Not Available [address] [place], [address], 02/02/2025 01:01:59 02/03/2002/02/2025 URINA LYSIS COMPL ETE UA ketone dipstick 3+ negati ve abnormal Not Available [address] [place], [address], 02/02/2025 01:01:59 02/03/2002/02/2025 URINA LYSIS COMPL ETE UA specific gravity 1.010 1.005- 1.030 normal Not Available [address] [place], [address], 02/02/2025 01:01:59 02/03/20 25 02/02/2025 URINA LYSIS COMPL ETE UA blood dipstick NEGATI VE negati ve Not Available [address] , [place], [address], 02/02/2025 01:01:59 02/03/2002/02/2025 URINA LYSIS COMPL ETE UA pH dipstick 7.0 5.0-9. 0 normal Not Available [address] [place], [address], 02/02/2025 01:01:59 02/03/2002/02/2025 URINA LYSIS COMPL ETE UA protein dipstick NEGATI VE negati ve Not Available [address] [place], [address], 02/02/2025 01:01:59 02/03/2002/02/2025 URINA LYSIS COMPL ETE UA urobilinogen dipstick NEGATI VE mg/dL <1 Not Available [address] [place], [address], 02/02/2025 01:01:59 02/03/2002/02/2025 URINA LYSIS COMPL ETE UA nitrite dipstick NEGATI VE negati ve Not Available [address] , [place], [address], 02/02/2025 01:01:59 02/03/2002/02/2025 URINA LYSIS COMPL ETE UA leukocyte esterase dipstick TRACE negati ve Not Available [address] [place], [address], 02/02/2025 01:01:59 02/03/2002/02/2025 URINA LYSIS COMPL ETE UA RBC NONE SEEN RBC/h pf none seen Not Available [address] [place], [address], 02/02/2025 01:01:59 02/03/20 02/02/2025 URINA LYSIS COMPL ETE UA WBC 0-5 WBC/h pf 0-5 Not Available [address] [place], [address], 02/02/2025 01:01:59 02/03/20 25 02/02/2025 URINA LYSIS COMPL ETE UA epithelial cells 0-5 SQUAMO US epi/h pf 0-5 Not Available [address] , [place], [address], 02/02/2025 01:01:59 02/03/2002/02/2025 URINA LYSIS COMPL ETE UA bacteria NONE SEEN none seen Not Available [address] , [place], [address], 02/02/2025 01:01:59 02/03/2002/02/2025 URINA LYSIS COMPL ETE UA mucus NONE SEEN none seen Not Available [address] [place], [address], 02/02/2025 01:01:59 02/03/20 25 02/02/2025 URINA LYSIS COMPL ETE UA amorphous sediment NONE SEEN none seen Not Available [address] , [place], [address], 02/02/2025 01:01:59 02/03/2002/02/2025 URINA LYSIS COMPL ETE performing lab see note ML - [facility] [address] [facility] [address] Not Available [address] [place], [address], 02/02/2025 01:01:59 02/03/20 25 02/02/2025 WET [place] note See Note Order ing Provi jeri: BACTERIOLOGIST DAIRY Rebec ca Garcíage CNM Not Available [address] [place], [address], 02/02/2025 01:03:00 02/03/2002/02/2025 WET M[place] wet mount See Below WET [place] (F) Becca Date/ Time: 02/02 00:35 Madhuri Date/ Time: 02/02 01:00 SOURC E: VAGIN AL SPEC DESC: BACTE YULIA: RARE BACTE YULIA EPITH ELIAL CELLS : 4+ EPITH ELIAL CELLS TRICH OMONA S: NO TRICH OMONA S SEEN WBC'S : RARE WBC'S YEAST : NO YEAST SEEN Not Available [address] , [place], [address], 02/02/2025 01:03:00 02/03/20 25 02/02/2025 WET MOUNT performing lab see note [facility] [address] [facility] [address] Not Available [address] , [place], [address], 02/02/2025 01:03:00 10/21/19 25 10/17/2024 US, obste tric, 1st trime ster No observ ation record ed. BARCODE [employer] [address] [place] [address] , [place], [address], 10/20/2024 11:51:06 12/16/19 25 12/16/2024 US, obste tric, trans vagin al No observ ation record ed. adrian [employer] [address] [place] [address] , [place], [address], 12/16/2024 11:29:24 12/17/19 25 12/16/2024 US, obste tric, trans vagin al No observ ation record ed. BARCODE [employer] [address] [place] [address] , [place], [address], 12/16/2024 17:14:38 01/08/2001/13/2025 US, obste tric, 2nd trime ster No observ ation record ed. adrian [employer] [address] [place] [address] , [place], [address], 01/13/2025 14:46:14 01/08/2001/13/2025 US, obste tric, trans vagin al No observ ation record ed. adrian [employer] [address] [place] [address] , [place], [address], 01/13/2025 14:48:30 01/15/2001/13/2025 US, obste tric, trans vagin al No observ ation record ed. KEEGAN [employer] [address] [place] [address] , [place], [address], 01/14/2025 12:13:05 01/15/2001/13/2025 , obste tric, 2nd trime ster No observ ation record ed. KEEGAN [employer] [address] [place] [address] , [place], [address], 01/14/2025 12:13:05 Result Notes None recorded. Problems Name Problem SNOMED Code Status Onset Date Resolution Date Notes Provider Name and Address Organization Details Recorded Time Teenage pregnanc y 223398469 Completed 18-year- old mom/nakia or [facility], 20-year- old FOB; good family support Alireza Zhang, RN [address], [place], [address], [place] [facility] 11:26:28 Supervis ion of high risk pregnanc y for primigra aldair age 15 years or younger Completed 201808/23/2018 Salome Yun APRN [address], [place], [address], [place] [facility] 9 13:01:15 Pregnanc y 62677549 Completed 201803/06/2025 Alireza Zhang RN [address], [place], [address], [place] [facility] 5 10:43:58 Antenata l screenin g Completed 2018 [x ] FTS - declined [ x] AFP-decl ined Genetic testing not covered by [employer] 08-27-18 AGA, sl RON Alireza Zhang RN [address], [place], [address], [place] [facility] 9 11:26:28 Active or passive immuniza tion Completed 2018 - Flu vaccine [ x] Tdap 01/14/19 Alireza Zhang RN [address], [place], [address], [place] [facility] 9 11:26:28 Supervis ion of high risk pregnanc y for primigra aldair age 15 years or younger done [id number] Completed 201803/27/2019 Susan Stears null, [place] - [facility] 9 14:11:15 Supervis ion of high risk pregnanc y for primigra aldair age 15 years or younger done [id number] Completed 2018 Alireza Zhang RN [address], [place], [address], [place] [facility] 9 11:26:28 Urinary tract infectio n in pregnanc y 447213959 Completed 201803/27/2019 Asymptom atic - [ x] ADELSO @ 16 wks Coagulas e Negaive Staphylo coccus species Rx Macrobid [x] ADELSO collecte d 11/05 no growth Susan Stears null, [place] - [facility] 9 14:11:21 Urinary tract infectio n in pregnanc y 520582814 Completed 2018 Asymptom atic - [ x] ADELSO @ 16 wks Coagulas e Negaive Staphylo coccus species Rx Macrobid [x] ADELSO collecte d 11/05 no growth Alireza Zhang RN [address], [place], [address], [place] [facility] 9 11:26:28 Genital Molluscu m contagio sum 756749420 Completed 201811/07/2023 Noted on OB PE Jessica DavidMARTA udran [address], [place], [address], [place] [facility] 4 11:16:32 Genital Molluscu m contagio sum 666932411 Completed 2018 Noted on OB PE Alireza Zhang RN [address], [place], [address], [place] [facility] 9 11:26:28 Blood group O Rh(D) negative 460047190 Completed 2018 rhogam given 28 wk, neg ab screen Alireza Zhang RN [address], [place], [address] [place] [address], [facility] - [facility] 9 11:26:28 Anemia of pregnanc y 05269262 Completed 2018 Hgb 10.5 @ 28wk Alireza Zahng RN [address], [place], [address], [facility] - [facility] 9 11:26:28 Family history of malignan t neoplasm of breast in first degree relative 334379849 Active 2023 Priyanka Hilario APRN [address], [place], [address], [place] [facility] 5 15:22:39 Body mass index 25-29 [facility] Active 2024 BMI: 29.6 starting wgt: 167 HgbA1c: 5.3 Priyanka Hilario APRN [address], [place], [address], [place] [facility] 5 22:43:26 Antenata l screenin g Completed 2024 Mat21- NEG, MALE; AFP- 12/16/24 Negative ; CF/SMA- declined 11/17 Alireza Zhang RN [address], [place], [address], [facility] - [facility] 5 10:50:38 Body mass index 25-29 - overweig 971359822 Completed 2024 BMI: 29.6 starting wgt: 167 HgbA1c: 5.3 Priyanka Hilario, SHIRRER [address], [place], [address], [place] [facility] 5 22:43:26 Contrace ptive hugo hinton Completed 2024 None, same sex relation ship Priyanka Hilario, SHIRRER [address], [place], [address], [place] [facility] 5 15:20:52 Immuniza tion due 960804688 Completed 2024 Covid- x2 Tdap- Flu- declined 10/09/24 Priynaka Hilario, SHIRRER [address], [place], [address], [place] [facility] 15:21:18 Past pregnanc y history of prematur e delivery 401463919 Completed 2024 2019, delivery at 34.3wks [ ] CL at 16wks Naya AlexisJono waterman, DO [address], [place], [address], [place] [facility] 5 11:19:37 Past pregnanc y history of prematur e delivery 259487294 Active 2024 2019, [place] delivery at 34.3wks [ ] CL at 16wks Naya AlexisJono waterman, DO [address], [place], [address], [place] [facility] 5 11:19:37 Blood group O Rh(D) negative 897066454 Completed 2024 [ ]28wk Rhogam and AB screen Priyanka Hilario, SHIRRER [address], [place], [address], [place] [facility] 5 15:22:34 Blood group O Rh(D) negative 665147071 Active 2024 [ ]28wk Rhogam and AB screen Priyanka Hilario, SHIRRER [address], [place], [address], [place] [facility] 5 15:22:34 Overweig ht 141617593 Active 2024 Priyanka Hilario SHIRRER [address], [place], [address], [place] [facility] 5 20:56:48 Gestatio n period, 7 weeks 47034255 Active 2024 Whit [place] null, [place] [facility] 5 09:46:52 Gestatio n period, 8 weeks 19491641 Active 2024 Whit [place]aly null, [place] [facility] 5 09:48:28 High risk pregnanc y 37521508 Completed 2024 h/o PTD 34wks Naya Alexis-Ort iz, DO [address], [place], [address], [place] [facility] 5 14:27:18 Microsco pic hematuri a 139754178 Active 2024 Whit [place] null, [place] [facility] 14:55:23 Nausea and vomiting in pregnanc y Completed 2024 Naya Alexis-Ort iz, DO [address], [place], [place], [address], [place] [facility] 5 14:56:58 Gestatio n period, 12 weeks 38733107 Active 2024 Whit [place]aly null, [place] [facility] 5 10:22:36 Malodoro us urine 580361604 Active 2024 Naya Alexis-Ort iz, DO [address], [place], [address], [place] [facility] 5 11:21:40 Bacteria l vaginosi s 047567957 Active 2024 Naya Alexis-Ort iz, DO [address], [place], [address], [place] [facility] 5 17:50:41 Gestatio n period, 16 weeks 75901917 Active 2024 Whit [place] null, [place] [facility] 5 14:35:34 Gestatio n period, 18 weeks 45653458 Active 2024 Whit [place] null, [place] [facility] 10:19:34 Gestatio n period, 20 weeks 92653957 Active 2024 Whit eric, [place] - [facility] 09:22:44 Overweig ht in adulthoo d with body mass index of 25 or more but less than 30 978363247 Active 2024 Whit eric, [place] - [facility] 09:23:21 Breech presenta tion 9899421 Completed 2024 Noted at 20wk SELENA [ ] 36wk US Naya waterman DO [address], [place], [address], [place] [facility] 14:39:17 Problem Notes None recorded. Procedures Surgical History Date Name Laterality Status Provider Name and Address Organization Details Recorded Time 01/14/20 OB Ultrasound Summary completed Moses Donovan [place] - [facility] 01/13/2025 14:23:48 12/17/19 25 OB Ultrasound Summary completed Moses Donovan [place] - [facility] 12/16/2024 11:23:36 11/18/19 25 Date of Last Pap Smear completed Whit Daly [place] - [facility] 11/21/2024 13:07:00 10/18/19 25 OB Ultrasound Summary completed Moses Donovan [place] - [facility] 10/17/2024 14:30:04 11/14/19 24 IUD Removal completed Naya Croft [place] - [facility] 11/14/2023 14:10:20 11/14/19 24 removal of intrauterine contraceptive device completed Naya Croft [place] - [facility] 11/14/2023 14:07:39 10/09/19 22 operation on oral cavity completed Radha Corona [place] - [facility] 11/07/2023 10:01:44 04/10/20 19 IUD Insertion (Kyleena) completed Rubina Andres MD [address], [place], [address], [place] [facility] 04/10/2019 17:54:00 04/10/20 19 insertion of intrauterine contraceptive device completed Naya Croft [place] - [facility] 11/14/2023 14:08:58 04/30/20 19 OB Ultrasound Summary completed Eunice Frazier [place] - [facility] 11/05/2018 11:11:06 08/27/19 OB Ultrasound Summary completed Moses Donovan [place] - [facility] 08/27/2018 15:37:32 Imaging Results None recorded. Procedure Notes None recorded. Medical Equipment None Reported. Allergies No known drug allergies Medications Name Sig Start Date Stop Date Status Note LastModified by Organization Details LastModified Time amoxicillin 500 mg capsule 11/06 completed Not Available Not Available Not Available Vitamin B-6 25 mg tablet TAKE ONE (1) TABLET EVERY DAY BY ORAL ROUTE AT BEDTIME FOR 90 DAYS. 02/10 completed Not Available Not Available Not Available cetirizine 10 mg tablet 04/25 completed Not Available Not Available Not Available Stool Softener 100 mg capsule Take 1 capsule twice a day by oral route. 11/06 completed Not Available Not Available Not Available phenazopyri dine 200 mg tablet 11/06 completed Not Available Not Available Not Available ondansetron HCl 4 mg tablet 11/06 completed Not Available Not Available Not Available prednisone 20 mg tablet 11/06 completed Not Available Not Available Not Available penicillin V potassium 500 mg tablet TAKE 1 TABLET BY MOUTH 4 TIMES DAILY UNTIL GONE 12/29 completed Not Available Not Available Not Available metronidazo le 500 mg tablet Take 1 tablet twice a day by oral route for 7 days. 12/05 completed Not Available Not Available Not Available sulfamethox azole 800 mg-trimetho prim 160 mg tablet 11/06 completed Not Available Not Available Not Available famotidine 20 mg tablet 11/06 completed Not Available Not Available Not Available phenazopyri dine 100 mg tablet 11/06 completed Not Available Not Available Not Available cephalexin 500 mg capsule 11/06 completed Not Available Not Available Not Available ferrous sulfate 325 mg (65 mg iron) tablet Take 1 tablet every day by oral route for 30 days. 04/25 completed Not Available Not Available Not Available fluoxetine 20 mg tablet Take 1 tablet every day by oral route. 06/19 completed Not Available Not Available Not Available Differin 0.1 % topical gel 11/06 completed Not Available Not Available Not Available sertraline 25 mg tablet Take 1 tablet every day by oral route. 11/06 completed Not Available Not Available Not Available etodolac 400 mg tablet 11/06 completed Not Available Not Available Not Available polyethylen e glycol 3350 17 gram/dose oral powder 11/06 completed Not Available Not Available Not Available ondansetron 4 mg disintegrat ing tablet 11/06 completed Not Available Not Available Not Available fluticasone propionate 50 mcg/actuati on nasal spray,suspe nsion 04/25 completed Not Available Not Available Not Available sertraline 50 mg tablet Take 1 tablet every day by oral route. 11/06 completed Not Available Not Available Not Available Unisom (doxylamine ) 25 mg tablet TAKE ONE (1) TABLET EVERY DAY BY ORAL ROUTE AT BEDTIME FOR 90 DAYS. 02/10 completed Not Available Not Available Not Available medroxyprog esterone 150 mg/mL intramuscul ar suspension Inject 1 mL every 3 months by intramusc ular route. 04/25 completed Not Available Not Available Not Available Vitamin 27 mg iron-0.8 mg tablet Take 1 tablet every day by oral route as directed for 30 days. 04/25 completed Not Available Not Available Not Available azithromyci n 500 mg tablet Take 2 tablets every day by oral route for 1 day. 11/29 completed Not Available Not Available Not Available nitrofurant oin monohydrate /macrocryst als 100 mg capsule Take 1 capsule by oral route for 7 days. 11/06 completed Not Available Not Available Not Available amoxicillin 03/27 completed Not Available Not Available Not Available 1 po qd from hd 11/29 completed Not Available Not Available Not Available HyperRHO S/D 1,500 unit (300 mcg) intramuscul ar syringe Inject 300 microgram s by intramusc ular route as directed. 01/14 completed Not Available Not Available Not Available Vitamins Plus Low Iron 27 mg iron-1 mg tablet 04/25 completed Not Available Not Available Not Available Kyleena 17.5 mcg/24 hr (up to 5 years) 19.5 mg intrauterin e device Take by intrauter ine route. 11/13 completed Not Available Not Available Not Available Vitals Date Recorded Body height Body mass index (BMI) Body weight Pain severity - 0-10 verbal numeric rating [Score] - Reported Heart rate Systolic And Diastolic Provider Name and Address Organization Details Last Updated DateTime 5 160.02 cm 28.3 kg/m2 47892.7 8 g 0 102 /min 100/60 mm[Hg] Kylah Daly [facility] 5 10:51:45 Date Recorded Body height Body mass index (BMI) Body weight Pain severity - 0-10 verbal numeric rating [Score] - Reported Heart rate Systolic And Diastolic Provider Name and Address Organization Details Last Updated DateTime 160.02 cm 27.9 kg/m2 08899.1 6 g 0 100 /min 112/62 mm[Hg] Kylah Daly [facility] 5 11:33:17 Date Recorded Body height Body mass index (BMI) Body weight Pain severity - 0-10 verbal numeric rating [Score] - Reported Systolic And Diastolic Provider Name and Address Organization Details Last Updated DateTime 12/29/2024 160.02 cm 27.7 kg/m2 91263.13 g 0 100/58 mm[Hg] Whit Daly [facility] 5 11:53:46 Date Recorded Body height Pain severity - 0-10 verbal numeric rating [Score] - Reported Body mass index (BMI) Body weight Systolic And Diastolic Provider Name and Address Organization Details Last Updated DateTime 01/13/2025 160.02 cm 0 27.8 kg/m2 92507 g 98/60 mm[Hg] Whit Daly [facility] 14:36:52 Date Recorded Body height Body mass index (BMI) Body weight Systolic And Diastolic Provider Name and Address Organization Details Last Updated DateTime 02/10/2025 160.02 cm 28 kg/m2 49494.59 g 100/66 mm[Hg] Brittani Siria [facility] 02/10/2025 10:58:08 Social History Question Answer Notes LastModified by Organizat ion Details LastModified Time Tobacco Smoking Status Never Smoker Radha eric [place] - [facility] 08/19/2018 09:23:15 Do You Have An Advance Directive? No [email or web address] Information not available 08/19/2018 If You Are , What Was Your Level Of Alcohol Consumption Prior To ? None [email or web address] Information not available 08/19/2018 Is Anesthesia Consult Planned? No [email or web address] Information not available 08/19/2018 Plan No [email or web address] Information no t available 08/19/2018 Are You Blind Or Do You Have Difficulty Seeing? No [email or web address] Information not available 08/19/2018 Is Blood Transfusion Acceptable In An Emergency? Yes [email or web address] Information not available 08/19/2018 Breast Feeding? Yes [email or web address] Informati on not available 08/19/2018 What Is Your Level Of Caffeine Consumption? Moderate [email or web address] Information not available 08/19/2018 Live With Cats/exposure To Cat Litter No [email or web address] Information not available 08/19/2018 How Much Tobacco Do You Chew? None [email or web address] Information not available 08/19/2018 In The 14 Days Before Symptom Onset, Have You Had Close Contact With A Laboratory-confir med COVID-19 While That Case Was Ill? No [email or web address] Information not available 11/07/2023 In The 14 Days Before Symptom Onset, Have You Had Close Contact With A Person Who Is Under Investigation For COVID-19 While That Person Was Ill? No [email or web address] Information not available 11/07/2023 Have You Been To An Area Known To Be High Risk For COVID-19? No [email or web address] Information not available 11/07/2023 Are You Deaf Or Do You Have Serious Difficulty Hearing? No [email or web address] Information not available 08/19/2018 Diabetes No [email or web address] Information no t available 08/19/2018 What Type Of Diet Are You Following? REGULAR [email or web address] Information not available 08/19/2018 Which Illicit Or Recreational Drugs Have You Used? None [email or web address] Information not available 08/19/2018 Have You Processed Blood Or Body Fluids From An Ebola Virus Disease Patient Without Appropriate PPE? No [email or web address] Information not available 11/07/2023 Do You Reside In Or Have You Traveled To An Area Where Ebola Virus Transmission Is Active? No [email or web address] Information not available 11/07/2023 Education 12 Information no t available 11/07/2023 What Is The Highest Grade Or Level Of School You Have Completed Or The Highest Degree You Have Received? [id number] [email or web address] Information not available 11/07/2023 How Many Days Of Moderate To Strenuous Exercise, Like A Brisk Walk, Did You Do In The Last 7 Days? 1 [email or web address] Information not available 08/19/2018 On Those Days That You Engage In Moderate To Strenuous Exercise, How Many Minutes, On Average, Do You Exercise? 1 [email or web address] Information not available 08/19/2018 Have There Been Any Changes To Your Family Or Social Situation? No [email or web address] Information no t available 08/19/2018 How Hard Is It For You To Pay For The Very Basics Like Food, Housing, Medical Care, And Heating? Not Very Hard [email or web address] Information not available 11/07/2023 What Is The Fluoride Status Of Your Home? Fluoridated Information not available 11/07/2023 Frequent Air Travel No [email or web address] Information not available 08/19/2018 Have You Recently Or Are You Planning To Travel To An Area With Zika Virus? No [email or web address] Information not available 11/07/2023 High Blood Pressure No [email or web address] Information not available 08/19/2018 High Cholesterol No [email or web address] Informat ion not available 08/19/2018 High Number Of Sexual Partners No [email or web address] Information not available 11/07/2023 Illicit Drugs Pre- None [email or web address] Information not available 08/19/2018 Live Alone Or With Others? With Others Parents [email or web address] Information not available 08/19/2018 Marital Status Single [email or web address] Informatio n not available 11/07/2023 Do You Have A Medical Power Of Chief Technician? No [email or web address] Information not available 11/07/2023 What Was The Date Of Your Most Recent Tobacco Screening? 12/16/2024 [email or web address] Information not available 12/16/2024 How Many Children Do You Have? 1 [email or web address] Information not available 11/07/2023 Do You Have Any Pets? No [email or web address] Information not available 08/19/2018 What Is Your Relationship Status? Single Information not available 11/07/2023 Seat Belts Used Routinely Yes [email or web address] Information not available 08/19/2018 Are You Sexually Active? Yes [email or web address] Information not available 10/09/2024 Do You Have Smoke And Carbon Monoxide Detectors In Your Home? Yes Information not available 08/19/2018 Are You Passively Exposed To Smoke? Yes [email or web address] Information no t available 08/19/2018 How Much Tobacco Do You Smoke? No [email or web address] Information not available 08/19/2018 Smoking Pre- No [email or web address] Information not available 08/19/2018 General Stress Level Low [email or web address] Information not available 08/19/2018 Do You Use Sunscreen Routinely? No [email or web address] Information not available 08/19/2018 Supplements None [email or web address] Information n ot available 11/07/2023 Has Tobacco Cessation Counseling Been Provided? No [email or web address] Information not available 11/07/2023 How Many Years Have You Smoked Tobacco? 0 [email or web address] Information not available 08/19/2018 Do You Have Difficulty Walking Or Climbing Stairs? No [email or web address] Information not available 08/19/2018 Do You Have Symptoms Associated With Zika Virus (fever, Rash, Joint Pain, Or Conjunctivitis)? No [email or web address] Information not available 08/19/2018 Have You Recently (within The Last 12 Weeks, Or During A Current ) Traveled To Or Lived In A Zika-affected Area? No [email or web address] Information not available 08/19/2018 What Contraceptive Method Was Reported At Start Of This Visit? None [email or web address] Information not available 10/09/2024 What Contraceptive Method Was Reported At End Of This Visit? None [email or web address] Information not available 11/14/2023 Do You Want To Talk About Contraception Or Prevention During Your Visit Today? No - This Question Does Not Apply To Me/I Prefer Not To Answer [email or web address] Information not available 10/09/2024 Do You Have Any Future Plans To Get ? I'm OK Either Way [email or web address] Information not available 10/09/2024 What Is Your Reason For Having No Contraceptive Method At Start Of This Visit? Other [email or web address] Information not available 10/09/2024 What Is Your Reason For Having No Contraceptive Method At End Of This Visit? Other Information not available 10/09/2024 Sex: Female Functional Status Question Answer Note LastModified by Organizat ion Details LastModified Time Do you use any illicit or recreational drugs? No [email or web address] Information not available 11/07/2023 Do you or have you ever used any other forms of tobacco or nicotine? No [email or web address] Information not available 11/07/2023 What is your level of alcohol consumption? None [email or web address] Information not available 11/07/2023 Are you currently employed? Yes [email or web address] Information not available 11/07/2023 Do you have transportation difficulties? No [email or web address] Information not available 11/07/2023 What is your status? [email or web address] Information no t available 10/09/2024 Are you able to walk independently without assistance or assistive devices? YESWOREST [email or web address] Information not available 11/07/2023 Do you have difficulty doing errands alone? No [email or web address] Information not available 08/19/2018 Are you able to care for yourself independently? 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 No [email or web address] Information not available 08/19/2018 What is your exercise level? None [email or web address] Information not available 08/19/2018 Mental Status Question Answer Note LastModified by Organizat ion Details LastModified Time Do you feel stressed (tense, restless, nervous, or anxious, or unable to sleep at night)? [email or web address] Information not available 11/07/2023 Do you have difficulty concentrating, remembering or making decisions? No [email or web address] Information no t available 08/19/2018 Family History Relationship Description Onset Age of this Age Resolved Age Notes LastModified by Organization Details LastModified Time Brother Multiple epiphyseal dysplasia [email or web address] Not available 2024 14:48:00 Brother Seizure Not available 10/09/2024 14:48:00 Maternal Grandmother Diabetes mellitus [email or web address] Not available 08/19 09:21:45 Maternal Grandmother Heart disease [email or web address] Not available 08/19 09:22:11 Maternal Grandmother Myocardial infarction 53 Not available 10/09 14:48:00 Maternal Grandmother Malignant neoplasm of breast 30 53 [email or web address] Not available 2023 10:27:05 Mother Malignant neoplasm of breast 22 [email or web address] Not available 2023 10:26:03 Maternal Aunt Malignant neoplasm of breast 60 from lung cancer [email or web address] Not available 11/07/2023 10:28:08 Maternal Aunt Malignant neoplasm of breast 50 deceas ed d/t non-ca ncerou s causes [email or web address] Not available 11/07/2023 10:28:11 Maternal Aunt Malignant neoplasm of breast [email or web address] Not available 2023 10:26:22 Maternal Aunt Malignant neoplasm of lung 60 [email or web address] Not available 2023 10:28:01 Medical History Condition Response Pancreatitis N Other N Atrial Fibrillation N congenital heart disease N Blood Diseases N Hyperthyroidism N Blood Transfusion N Rheumatoid arthritis N Erectile Dysfunction N amputation N Skin Lesions N Depression N Pneumonia N Incontinence N Murmur N Edema N Alzheimer's Disease N Migraine Headaches N Tobacco Abuse N Anxiety Disorder N Hemorrhoids N Obesity N Vision or Eye Problems N Arthritis N Restless Leg Syndrome N Polyps N Infertility N Carpal Tunnel N Acid Reflux (GERD) N Cancer N Varicosities N Stroke N Tendonitis N Crohn's Disease N Hypercholesterolemia N Skin Cancer N Headaches N Fibromyalgia N Irritable Bowel Syndrome N Anal Fissure N Kidney Disease N Heart Problems N Hospitalizations Y Gallstones N Kidney or Bladder Problems N Goiter N Acne N Eating Disorder N Lynn's Esophagus N Hypertriglyceridemia N Constipation N Embolism N Vitamin B12 Deficiency N Deviated Septum N AIDS/HIV N Myocardial Infarction N Asthma N Mitral Valve Disorders N Vertigo N Hepatitis N Thyroid Cancer N Neuropathy N History of DVT N Herniated Disc N Chicken Pox N Von Willebrands Disease N Thrombophilias N Breast Cancer N Hernia N Plantar Fasciitis N Hypothyroidism N Lung Disease N Defects or Inherited Disease N Breast Problem N Ovarian Cyst N Anesthesia Complications N Testosterone Deficiency N Interstitial Cystitis N Congenital Anomalies N Hypoglycemia N Blood clot N Vitamin D Deficiency N Cellulitis N Endometriosis N Bladder or Kidney Problems N Fracture N Panic Disorder N Schizophrenia N Concussion N Spina Bifida N Osteoarthritis N Parkinson's Disease N Disc Protrusion N STI N Esophagitis N Angina N Thyroid Problems N GI Problems N ADD/ADHD N Anemia N Multiple Sclerosis N Abnormal PAP N Lumbago N Mental Illness N Psychiatric Illness N Diabetes N Ovarian Cancer N Degenerative Disc Disease N Seizures/Epilepsy N Hyperlipidemia N Syncope N Insomnia N Eczema N Abuse/Domestic Violence N Attention Deficient Disorder N Dementia N Ulcerative colitis N Cerebrovascular Disease N Depression N Guillain-[place] N Sleep Apnea N Aneurysm N Bronchitis N Heart Disease N Hypertension N Pre-Eclampsia N Suicidal Ideation N Osteoporosis N Gynecological History Statement/Question Response Abnormal Pap N Flow Moderate Date of LMP 08/17/2024 Post Menopausal Bleeding N STIs/STDs N HPV Vaccine Y Duration of Flow (days) 8 Current Control Method Age at Menarche 13 Age at First Child 18 Last Annual Exam/Provider 11/07/2023 wit h DGT Frequency of Cycle (Q days) 30 Sexually Active? Y Date of Last Cervical Culture 11/07/2023 Menses Monthly Y Date of Last Pap Smear 11/17/2024 Sexual Problems? N LMP Definite Desired Control Method None Hormone Replacement Therapy N Obstetrics History GPAL:G 2 P 0 1 0 1 Type Value Premature 1 Living 1 Total 2 Immunizations Vaccine Type Date Status Note Provider Nam e and Address Organization Details Recorded Time Hep B, unspecified formulation 3 completed Naya Croft null, [place] - [facility] 11/14/2023 14:17:14 Hep B, unspecified formulation 3 completed N[place] [facility] 11/14/2023 14:17:14 Hep B, unspecified formulation 4 completed Radha Corona [place], [place] [facility] 08/23/2018 15:27:47 DTaP 3 completed [place] [facility] 11/14/2023 14:17:14 DTaP 3 completed [place] [facility] 11/14/2023 14:17:14 DTaP 3 completed [place] [facility] 11/14/2023 14:17:14 DTaP 4 completed [place] [facility] 11/14/2023 14:17:14 DTaP 7 completed [place] [facility] 11/14/2023 14:17:14 Hib, unspecified formulation 3 completed [place] [facility] 11/14/2023 14:17:14 Hib, unspecified formulation 3 completed [place] [facility] 11/14/2023 14:17:14 Hib, unspecified formulation 4 completed Radha [place] [facility] 08/23/2018 15:30:50 pneumococcal, unspecified formulation 3 completed Radha Chloe [place] [facility] 08/23/2018 15:31:09 pneumococcal, unspecified formulation 3 completed Rad[place] [facility] 08/23/2018 15:31:20 pneumococcal, unspecified formulation 3 completed Rad[place] [facility] 08/23/2018 15:31:49 polio, unspecified formulation 3 completed N[place] [facility] 11/14/2023 14:17:14 polio, unspecified formulation 3 completed [place] [facility] 11/14/2023 14:17:14 polio, unspecified formulation 4 completed [place] [facility] 11/14/2023 14:17:14 polio, unspecified formulation 7 completed [place] [facility] 11/14/2023 14:17:14 MMR 4 completed Rad[place] [facility] 08/23/2018 15:33:01 MMR 7 completed Rad[place] [facility] 08/23/2018 15:33:08 varicella 4 completed Rad[place] [facility] 08/23/2018 15:33:24 varicella 7 completed Rad[place] [facility] 08/23/2018 15:33:37 meningococcal, unknown serogroups 4 completed Rad[place] [facility] 08/23/2018 15:34:31 Tdap 4 completed Rad[place] [facility] 08/23/2018 15:34:57 HPV, unspecified formulation 4 completed Naya Diazann [place] [facility] 11/14/2023 14:17:14 Tdap 9 completed Not Available [facility] 07/26/2019 03:55:49 Influenza, split virus, quadrivalent, preservative 6 completed [place] [facility] 11/14/2023 14:06:49 Hib-Hep B 4 completed [place] [facility] 11/14/2023 14:06:49 Hib-Hep B 3 completed [place] [facility] 11/14/2023 14:06:49 HPV9 6 completed [place] [facility] 11/14/2023 14:06:49 MMRV 7 completed [place] [facility] 11/14/2023 14:06:49 COVID-19, mRNA, LNP-S, PF, 30 mcg/0.3 mL dose 1 completed [place] [facility] 11/14/2023 14:06:49 COVID-19, mRNA, LNP-S, PF, 30 mcg/0.3 mL dose 1 completed [place] [facility] 11/14/2023 14:06:49 Hep A, ped/adol, 2 dose 0 completed [place] [facility] 11/14/2023 14:06:49 Hep A, ped/adol, 2 dose 8 completed [place] [facility] 11/14/2023 14:06:49 meningococcal MCV4P 0 completed [place] [facility] 11/14/2023 14:06:49 meningococcal MCV4, unspecified formulation 4 completed [place] [facility] 11/14/2023 14:06:49 Influenza, split virus, quadrivalent, PF 0 completed [place] [facility] 11/14/2023 14:06:49 Past Encounters Encounter ID Performer Location Encounter Start Date Encounter Closed Date Diagnosis/Indication Diagnosis SNOMED-CT Code Diagnosis ICD10 Code Diagnosis IMO Codes Diagnosis Note [id number] MARTA Brown [employer] [address] [place] [address] IM[place] Diehl [id number] 7 08/19/2018 08:59:20 08/19/2018 11:02:59 Urine test positive 134000051 Z32.01 Supervisio n of high risk for primigravida age 15 years or younger done 5765775240 5354961 O09.619 Active or passive immunization 037375716 Z23 [id number] Getachew Suggs MD [place] [employer] [address] [place] [address] [place] [id number] 7 08/27/2018 15:03:36 08/27/2018 16:11:06 Supervision of high risk for primigravida age 15 years or younger done 1119218520 4527900 O09.619 Gestation period, 10 weeks 33046003 Z3A.10 [id number] Dona MARTA Fay [place] [employer] [address] [place] [address] [place] [id number] 7 09/16/2018 14:02:29 09/16/2018 14:50:08 Infection screening 114141370 Z11.3 Z11.8 Gestation period, 13 weeks 45325424 Z3A.13 Chronic constipation 236 745738 K59.09 Supervisio n of high risk for primigravida age 15 years or younger done 8261033821 4970470 O09.619 Genital Mo lluscum contagiosum 977012439 B08.1 Normal bod y mass index 76418977 Z68.52 [id number] Gely Huerta, MS, RD, LD [place] [employer] [address] [place] [address] [place] [id number] 7 10/15/2018 13:06:08 10/15/2018 14:13:09 [id number] Z33.1 [id number] Ebony Baker CNM [place] [employer] [address] [place] [address] [place] [id number] 7 10/15/2018 13:06:08 10/15/2018 14:13:10 Supervision of high risk for primigravida age 15 years or younger done 5730468295 7591281 O09.619 screening 2437 20348 Z36.9 Gestation period, 17 weeks 51656361 Z3A.17 Recurrent urinary tract infection 142673487 N39.0 High risk 4720 0007 O09.92 [id number] Rubina Andres MD [place] [employer] [address] [place] [address] [place] [id number] 7 11/05/2018 10:37:03 11/05/2018 11:31:18 Supervision of high risk for primigravida age 15 years or younger done 4234180095 9207784 O09.619 Genital Mo lluscum contagiosum 017878599 B08.1 Gestation period, 20 weeks 82636813 Z3A.20 screening 2437 48886 Z36.9 Urinary tr act infection in 285823225 O23.42 [id number] Ebony Baker CNM [place] [employer] [address] [place] [address] [place] [id number] 7 12/04/2018 15:36:45 12/04/2018 16:09:46 Supervision of high risk for primigravida age 15 years or younger done 8959304759 5143607 O09.619 Genital Mo lluscum contagiosum 258189520 B08.1 Gestation period, 24 weeks 359147047 Z3A.24 screening 2437 55589 Z36.9 High risk 4720 0007 O09.92 [id number] Jessica Bermudez APRN [place] [employer] [address] [place] [address] [place] [id number] 7 12/30/2018 08:27:12 12/30/2018 10:00:10 Supervision of high risk for primigravida age 15 years or younger done 8142097564 9690236 O09.619 screening 2437 66139 Z36.9 Gestation period, 28 weeks 59182591 Z3A.28 Blood grou p O Rh(D) negative 500363281 Z67.41 [id number] Ira Munguia MD [place] [employer] [address] [place] [address] [place] [id number] 7 01/14/2019 13:47:25 01/14/2019 14:34:15 Routine care 094384679 Z34.03 Gestation period, 30 weeks 85221926 Z3A.30 Active or passive immunization 551629366 Z23 tdap [id number] MD Brendon Cortez [employer] [address] [place] [address] [place] Diehl [id number] 7 01/28/2019 16:03:26 01/28/2019 16:23:33 Anemia of 62297868 O99.019 Gestation period, 32 weeks 0693281 Z3A.32 High risk 4720 0007 O09.93 [id number] MD Brendon Cortez [employer] [address] [place] [address] IM[place] Diehl [id number] 7 03/27/2019 13:51:27 03/27/2019 14:53:23 state 55131992 Z39.2 Contracept ion care management 400582250 Z30.9 depression 58 524234 F53.0 [id number] MD Brendon Cortez [employer] [address] [place] [address] [place] Diehl [id number] 7 04/10/2019 14:08:53 04/10/2019 16:00:02 Insertion of intrauterine contraceptive device 89217520 Z30.050 [id number] MD Brendon Cortez [employer] [address] [place] [address] IM[place] Diehl [id number] 7 04/25/2019 13:24:43 04/25/2019 13:58:22 depression 45498769 F53.0 Fatigue 21447053 R53.83 [id number] [facility] [address] [place], [place] [address] [id number] 4 04/25/2019 14:06:33 04/25/2019 14:56:45 [id number] DO Brendon Bailon [employer] [address] [place] [address] IM[place] Diehl [id number] 7 05/22/2019 15:04:10 05/22/2019 15:36:39 Contraception care management 786501669 Z30.9 depression 58 273861 F53.0 Due to Prozac made her worse - made her mean . Stop taking Prozac, to start Zoloft. [id number] DO Brendon Bailon [employer] [address] [place] [address] [place] Diehl [id number] 7 06/19/2019 11:35:13 06/19/2019 12:15:06 depression 53827968 F53.0 Zoloft is working well. [id number] MARTA Stokes [employer] [address] [place] [address] [place] Diehl [id number] 7 11/07/2023 09:34:18 11/07/2023 10:39:00 Routine gynecologic examination done 2756133392 9101 Z01.419 Depression screening 171 315880 Z13.31 PHQ-9 completed today. Diet education 57672849 Z71.3 Counseling 253074042 Z71 .82 Exercise counselschuyler wylie Patient encouraged to exercise 30 minutes 5 days a week. Examinatio n of blood pressure 915146342 Z01.30 Hypertensi on screening 739259141 Z13.6 Screening for malignant neoplasm of cervix 612038830 Z12.4 Contracept ion care management 362723539 Z30.[address] Family his tory of malignant neoplasm of breast in first degree relative 084934553 Z80.3 Body mass index 25-29 - overweight 674430654 Z68.28 Overweight 426957555 E66 .3 [id number] MARTA Stokes [employer] [address] [place] [address] IM[place] Diehl [id number] 7 11/14/2023 14:03:55 11/14/2023 14:51:26 Removal of intrauterine contraceptive device done 0354554077 69703 Z30.696 [id number] MARTA Adam [employer] [address] [place] [address] IM[place] Diehl [id number] 7 10/09/2024 14:47:21 10/09/2024 15:45:35 Urine test positive 280897080 Z32.01 care status 24 6663618 Z34.90 Z34.81 1402589100 Gestation period, 7 weeks 87334742 Z3A.01 34570803 Blood grou p O Rh(D) negative 687158007 Z67.41 925953 Body mass index 25-29 - overweight 953884618 Z68.28 Past pregn donis history of premature delivery 383163158 Z87.51 522234 7913 delivery 34.3wks Overweight 151875379 E66 .3 screening 2437 14732 Z36.9 3736474 [id number] DO Angie [place] [employer] [address] [place] [address] IM[place] Diehl [id number] 7 10/17/2024 14:02:03 10/17/2024 15:08:27 Blood group O Rh(D) negative 556068619 Z67.41 938218 O-Rh at 28 weeks Body mass index 25-29 - overweight 619213881 Z68.28 Overweight 792908751 E66 .3 Past pregn donis history of premature delivery 259722514 Z87.51 237017 8686 delivery 34.3wks screening 2437 63410 Z36.9 2485836 Gestation period, 8 weeks 43085041 Z3A.08 8427959 High risk 4720 0007 O09.91 03041012 Microscopic hematuria 19 9963977 R31.29 907792 Nausea and vomiting in 5209411201 O21.9 204380 [id number] DO Angie [place] [employer] [address] [place] [address] [place] Die[place] [id number] 7 11/17/2024 10:33:44 11/17/2024 11:27:25 High risk 27342330 O09.91 82658124 h/o PTDRh NEG Past pregn donis history of premature delivery 364850765 Z87.51 570132 1886 delivery 34.3wks screening 2437 98111 Z36.9 4400682 Blood grou p O Rh(D) negative 204694757 Z67.41 307150 O-Rh at 28 weeks Body mass index 25-29 - overweight 537060117 Z68.28 Overweight 406918923 E66 .3 Gestation period, 12 weeks 46770721 Z3A.12 6194558 Infection screening 2437 65853 Z11.3 Z11.8 Screening for malignant neoplasm of cervix 355707215 Z12.4 Z11.3 Malodorous urine 8931774 01 R82.90 8667958 [id number] DO Brendon MAY [employer] [address] [place] [address] [place] Die[place] [id number] 7 12/16/2024 11:11:59 12/16/2024 11:48:21 High risk 65970934 O09.91 [id number] h/o PTDRh NEG Past pregn donis history of premature delivery 211713570 Z87.51 667531 2908 delivery 34.3wks[ ] CL today nml screening 2437 99954 Z36.9 3184284 Blood grou p O Rh(D) negative 872056329 Z67.41 462895 O-Rh at 28 weeks Body mass index 25-29 - overweight 023471265 Z68.28 Overweight 581342234 E66 .3 Gestation period, 16 weeks 50653335 Z3A.16 4134186 [id number] NAYA LEWIS DO [place] [employer] [address] [place] [address] [place] [id number] 7 12/29/2024 11:45:30 12/29/2024 12:08:21 High risk 22886299 O09.91 78285090 h/o PTDRh NEG Past pregn donis history of premature delivery 150565974 Z87.51 688184 8307 delivery 34.5fsr31k k: CL nml screening 2437 57464 Z36.9 4936859 Blood grou p O Rh(D) negative 978783165 Z67.41 498039 O-Rh at 28 weeks Body mass index 25-29 - overweight 323498081 Z68.28 Overweight 376222877 E66 .3 Gestation period, 18 weeks 70167031 Z3A.18 8194044 [id number] DO Angie [place] [employer] [address] [place] [address] [place] [id number] 7 01/13/2025 13:42:45 01/13/2025 14:49:09 High risk 11468360 O09.91 85197692 h/o PTDRh NEG Past pregn donis history of premature delivery 272070963 Z87.51 879612 8742 delivery 34.1pem80j k: CL nml screening 2437 96478 Z36.9 6520387 Blood grou p O Rh(D) negative 148402760 Z67.41 951949 O-Rh at 28 weeks Gestation period, 20 weeks 00460298 Z3A.20 1766644 Overweight in adulthood with body mass index of 25 or more but less than 30 680632519 E66.3 Z68.25 5655937440 [id number] DO Brendon Bailon [employer]OT[employer] DIRECTOR [address] [facility] [place] [id number] 7 02/10/2025 10:48:57 02/10/2025 11:04:02 Past history of premature delivery 569974198 Z87.51 535324 3945 delivery 34.6smk21m k: CL nml Blood grou p O Rh(D) negative 035442123 Z67.41 688953 O-Rh at 28 weeks Overweight in adulthood with body mass index of 25 or more but less than 30 590597585 E66.3 Z68.25 3415428139 Gestation period, 24 weeks 428158365 Z3A.24 9639572 High risk 4720 0007 O09.90 79658748 Health Concerns Section Related Observation LastModified by Organization Detai ls LastModified Time None Recorded Concern Status LastModified by Organization Details LastModified Time None Recorded Advance Directives Directive N: Payers Insurance Date Sequence Insurance Name Policy Number Policy Loera Covered Member ID Loera Member ID Guarantor Name 10/09/2024 1 [employer] (MEDICAID REPLACEMENT - HMO) [id number] Gentri Sarah [id number] Gentri Sarah 10/09/2024 1 [facility] ([facility]ICA[facility]) Gentri Sarah [id number] Gentri Sarah 02/23/2025 1 [facility] (MEDICA[facility] H[facility]) Gentri Sarah [id number] Gentri Sarah 02/07/2025 [place] [facility] [place] ([place]ICAID[place] MEDICAID Gentri Sarah [id number] Gentri Sarah Notes Date Note Type Note Provider Name and Address Organization Details Recorded Time 11/17/2024 text/html ROS as noted in the HPI OB PE Naya Ribeiro DO [address], [place], [address], [place] [facility] 11/17/2024 13:04:11 12/16/2024 text/html ROS as noted in the HPI u/s, ob visit Naya Ribeiro, DO [address], [place], [address], [place] - [facility] 12/16/2024 11:44:05 12/29/2024 text/html ROS as noted in the HPI OB visit Naya Ribeiro, DO [address], [place], [address], [place] - [facility] 12/29/2024 12:08:41 01/13/2025 text/html ROS as noted in the HPI US, OB visit Naya Ribeiro, DO [address], [place], [address], [place] - [facility] 01/13/2025 14:49:13 02/10/2025 text/html ob visit Sally Kirby, DO [address], [place], [address], [place] - [facility] 02/10/2025 11:05:20 OBGyn Episode Ob Episode Information Episode Created Date Number of Fetuses Patient Bloodtype Patient rh Status Prepregnancy Weight lbs Domestic Partner Domestic Partner Phone Father Name Strike Operations Officer Status 10/10/19 25 1 O Negative 167 Nya, 20 [id number] 9 unsure CLOSED Fetus Data First Name Last Name Admitted to NICU Weight (g) Sex Living Outcome Pediatric Complications Fetus ID Race Codes Race Delivery Type [id number] Problems Problem Notes [facility]- H [facility] Well, [place] living [place] of [place] and bottle/circ if boy/unsure of peds02/13/2019: delivery at 34.3 wks for labor, 5# 10oz, maleUS:10/17/24: CRL c/w LMP. BRAYAN unchanged.FHR 165//JMO addendum: reviewed: 10/17/24 CRL7+6-->05/30/25: BRAYAN per LMP--> 05/24/25:(6 d off) I rec CHANGE dates per this initial US to 05/30/25- updated on FS/ls12/16/2024: Normal CL. FHR 149, no funneling/JMO01/13/25 :Complete SELENA normal, FHR 151, CL 4.58bm, Anterior placental tip and 4.92 CM from int os, breech/JMO Problem Name Start Date End Date Resolution Snomed Code Not e screening 10/09/2024 311684146 Mat21- NEG, MALE; AFP- 12/16/24 Negative; CF/SMA- declined 11/17 Body mass index 25-29 - overweight 10/09/2024 216615013 BMI: 29.6 starting wgt: 323XoeD0v: 5.3 Nausea and vomiting in 10/17/2024 0846929652 Immunization due 10/09/2024 876071152 Co vid- q5Rdeq-Vlk- declined 10/09/24 Contraceptive counseling 10/09/2024 72645492003060 None, same se x relationship High risk 10/17/2024 53868228 h/o PTD 34wks Blood group O Rh(D) negative 10/09/2024 436119222 [ ]28wk Rhogam and AB screen Past history of premature delivery 10/09/2024 147505921 [facility], delive ry at 34.3wks[ ] CL at 16wks Breech presentation 01/13/2025 8253169 Noted at 20wk SELENA[ ] 36wk US Brayan Calculation Initial Brayan Date Initial Exam Date Initial Exam Provider Initial Ultrasound Date Last Menstrual Period Date Ultra Sound Weeks Gestation 05/24/2025 10/09/2024 [email or web address] 10/17/2024 08/17/2024 7 Eighteen To Twenty Week Brayan Update Ultra Sound Date Fundal Height At Umbil Quickening Date Ultra Sound Latest Weeks Gestation Final Brayan Confirmed By Final Brayan Confirmed Date Final Brayan Date Ultra Sound Latest Days Gestation 0 [email or web address] 10/31/2024 05/30/20 25 0 Pre-cristhian Flowsheet Flowsheet Date 10/09/2024 Morales Score Blood Edema Fundus Height Fundus Units Glucose Ketones Leukocytes Nitrite Labor Signs Protein Cervic Dilation Cervic Effacement Cervic Station neg none none negative none Negative none neg Type Weight in lbs Pre/Post Dialysis Refused With clothes 167.204484257230 BP Diastolic BP Location Tested BP Systolic BP Type 78 R arm 122 sitting Fetus Heart Rate Present Fetus Movement A No Comments Caryn is here for obhx appt . She is certain of LMP. Planned . She is in a same sex relationship, obtained semen and done self insemination. This is her second , hx of delivery at . Desires NIPT. No vb or pain. Discussed plan of care. Consents to all labs today. Advised RTC 1-2wks for dating u/s to confirm BRAYAN.AD Flowsheet Date 10/17/2024 Morales Score Blood Edema Fundus Height Fundus Units Glucose Ketones Leukocytes Nitrite Labor Signs Protein Cervic Dilation Cervic Effacement Cervic Station trace none none negative none Negative none neg Type Weight in lbs Pre/Post Dialysis Refused With clothes 165.969184732237 BP Diastolic BP Location Tested BP Systolic BP Type 68 L arm 110 sitting Fetus Heart Rate Present A 165 Present Fetus Movement A No Comments +nausea. Rx sent. No m ovement yet. Declines loss of fluid, vaginal bleeding, changes in vaginal discharge, contractions, LE swelling, shortness of breath. + Blood in UA, Ucx collected. Ultrasound reviewed. RTC 4 weeks for OB PE and come back at 10 weeks for maternity 21 test. Order placed//JMO Flowsheet Date 10/31/2024 Morales Score Blood Edema Fundus Height Fundus Units Glucose Ketones Leukocytes Nitrite Labor Signs Protein Cervic Dilation Cervic Effacement Cervic Station Type Weight in lbs Pre/Post Dialysis Refused BP Diastolic BP Location Tested BP Systolic BP Type Fetus Heart Rate Present Fetus Movement Comments No visit: Chart review today . I would advise changing dates to 05-30-2025 per initial ultrasound 6 days off. Please update this information with patient at her RTO/lls Flowsheet Date 11/17/2024 Morales Score Blood Edema Fundus Height Fundus Units Glucose Ketones Leukocytes Nitrite Labor Signs Protein Cervic Dilation Cervic Effacement Cervic Station none none Type Weight in lbs Pre/Post Dialysis Refused With clothes 160.597733188555 BP Diastolic BP Location Tested BP Systolic BP Type 60 L arm 100 sitting Fetus Heart Rate Present A 159 Present Fetus Movement A No Comments OB PE. no vb. no lof. pt jamel ble to void to provide sample for urinalysis dipstick. //ak//Pt has no concerns today. Admits movement. Declines loss of fluid, vaginal bleeding, changes in vaginal discharge, contractions, LE swelling, shortness of breath. PAp collected. Abnormal d/c noted. nuswab collected. Same sex partner at bedside. All questions answered. Given h/o PTD, pt needs CL at 16wks. RTC at 16wk//[employer] Flowsheet Date 12/16/2024 Morales Score Blood Edema Fundus Height Fundus Units Glucose Ketones Leukocytes Nitrite Labor Signs Protein Cervic Dilation Cervic Effacement Cervic Station neg none none large none Negative none neg Type Weight in lbs Pre/Post Dialysis Refused With clothes 157.471929307563 BP Diastolic BP Location Tested BP Systolic BP Type 62 L arm 112 sitting Fetus Heart Rate Present A 149 Present Fetus Movement A Yes Comments no vb. no lof. //ak//Pt has no concerns today. Admits some movement. Declines loss of fluid, vaginal bleeding, changes in vaginal discharge, contractions, LE swelling, shortness of breath. US for CL discussed,nml. RTC 4 weeks for SELENA. AFP collected.//[id number] Flowsheet Date 12/29/2024 Morales Score Blood Edema Fundus Height Fundus Units Glucose Ketones Leukocytes Nitrite Labor Signs Protein Cervic Dilation Cervic Effacement Cervic Station none none Type Weight in lbs Pre/Post Dialysis Refused With clothes 156.501334683654 BP Diastolic BP Location Tested BP Systolic BP Type 58 L arm 100 sitting Fetus Heart Rate Present A 145 Present Fetus Movement A Yes Comments pt unable to void at time of intake for urinalysis dipstick. no vb. no lof. c/o intermittent sharp pains. //ak// Pt has no concerns today. Admits movement. Declines loss of fluid, vaginal bleeding, changes in vaginal discharge, contractions, LE swelling, shortness of breath. RTC 2 weeks for SELENA//[employer] Flowsheet Date 01/13/2025 Morales Score Blood Edema Fundus Height Fundus Units Glucose Ketones Leukocytes Nitrite Labor Signs Protein Cervic Dilation Cervic Effacement Cervic Station neg none none trace 1+ Negative none neg Type Weight in lbs Pre/Post Dialysis Refused With clothes 157.971938191227 BP Diastolic BP Location Tested BP Systolic BP Type 60 L arm 98 sitting Fetus Heart Rate Present A 151 Present Fetus Movement A Yes Comments no vb. no lof. //akm//Pt has no concerns today. Admits movement. Declines loss of fluid, vaginal bleeding, changes in vaginal discharge, contractions, LE swelling, shortness of breath. Normal SELENA. F/up 4 weeks//JMO Flowsheet Date 02/10/2025 Morlaes Score Blood Edema Fundus Height Fundus Units Glucose Ketones Leukocytes Nitrite Labor Signs Protein Cervic Dilation Cervic Effacement Cervic Station neg none 24 cm none negative none Negative none neg Type Weight in lbs Pre/Post Dialysis Refused With clothes 158.345545428420 BP Diastolic BP Location Tested BP Systolic BP Type 66 L arm 100 sitting Fetus Heart Rate Present A Present Fetus Movement A Yes Comments Pt states no VB, no LOF, no CTX. Pt states AFM. /EV Doing well. No complaints. Taking PNV. Denies heartburn or constipation. F/U 4 weeks with 1h GTT/Rhogam/SMO Menstrual History Last Menstrual Date Menses Monthly On Bcp Conception Prior Menses Frequency Hcg Plus Date Menarche Onset Age 0208/17/2024 true false 30 5 11 Genetic Screening And Infection History Question Response Note Patient's Age Will Be 35 Yea rs Or Older At Estimated Date of Delivery false Thalassemia (Bah[place]i, [place] Islander, Mediterranean, Or Background): MCV < 80 false Neural Tube Defect (Meningom yelocele, Spina Bifida, Or Anencephaly) false Congenital Heart Defect false Down Syndrome false Nilson-Sachs (eg, Shinto, Cajun , Greenlandic-Cymro) false Jaycee Disease false Sickle Cell Disease Or Trait () false Hemophilia Or Other Blood Disorders false Muscular Dystrophy false Cystic Fibrosis false [place]'s Chorea false Mental Retardation/Autism false If Yes, Was Person Tested Fo r Fragile X? false Other Inherited Genetic Or C hromosomal Disorder true Y, brother has Multiple epip hyseal dysplasia ? Maternal Metabolic Disorder (eg, Type 1 Diabetes, PKU) false Patient Or Baby's Father Had A Child With Defects Not Listed Above false Recurrent Loss, Or A Stillbirth false Medications (including Suppl ements, Vitamins, Herbs, OTC Drugs), Illicit/Recreational Drugs, Alcohol false If Yes, Agent(s) And Strength/Dosage false Any Other Genetic History false Live With Someone With TB Or Exposed To TB false Patient Or Partner Has Histo ry Of Genital Herpes false pt denies 10/09/24 Rash Or Viral Illness Since Last Menstrual Period false History Of STD, Gonorrhea, C hlamydia, HPV, Syphilis false pt denies 10/09/24 Other Infection History false History of HIV false History of Hepatitis false Prior GBS-infected child false Recent Travel Outside of Country false Plans and Education First Trimester Discussed Date Discussion Item Discussion Note Discuss ed By 10/09/2024 Desire for planned ade210/09/2024 Alcohol ade210/09/2024 Illicit/recreational drugs denies a duke24 10/09/2024 Nutrition aduke210/09/2024 Weight gain counseling 15-25# aduke 24 10/09/2024 Intimate Partner Violence ad uke210/09/2024 Unstable Housing aduke210/09/2024 Use of any medicatio ns (including supplements, vitamins, herbs, or OTC drugs) ade210/09/2024 Avoidance of saunas or hot tubs discussed 10/09/2024 Indications for ultrasonography aduke210/09/2024 Comminucation Barriers aduke 10/09/2024 Anticipated course of care ade210/09/2024 Toxoplasmosis precautions (cats/raw meat) ade210/09/2024 Sexual activity ade210/09/2024 Exercise ade210/09/2024 Tobacco/smoking cess ation counseling (ask, advise, assess, assist, and arrange) non smoker 10/09/2024 Barriers to Care ade210/09/2024 Environmental/work hazards a duke24 10/09/2024 Depression/Anxiety ( should be performed at least once during period) ade210/09/2024 WIC/Hands Referral 10/09/2024 Nutrition counseling ; special diet; dietary precautions (mercury, listeriosis) ade210/09/2024 Dental Care / Refer to Dentist ade210/09/2024 Seat belt use ad10/09/2024 Childbirth classes/hospital facilities ad10/09/2024 plans to pump ad10/09/2024 Screening for aneuploidy finesse ke24 Second Trimester Discussed Date Discussion Item Discussion Note Discuss ed By Third Trimester Discussed Date Discussion Item Discussion Note Discuss ed By Delivery Information Delivery Date Delivery Type Labor Anesthesia Weeks Gestation Incision Type Labor Labor Length Hrs Delivered By Post Complications Tubal Sterilization Discharge Date Comments Discharge Information Feeding Method Contraceptive Method Maternal HG B and HCT Levels Ob Episode Information Episode Created Date Number of Fetuses Patient Bloodtype Patient rh Status Prepregnancy Weight lbs Domestic Partner Domestic Partner Phone Father Name Strike Operations Officer Status 08/19/19 19 1 O Negative bf, Bradley Arzate, 18, white [employer] CLOSED Fetus Data First Name Last Name Admitted to NICU Weight (g) Sex Living Outcome Pediatric Complications Fetus ID Race Codes Race Delivery Type M true Prematur e [id number] Vaginal Problems Problem Notes - Epidural, Circ, [place] didi, [facility] for Dr. BeasonDr. Suggs delivered pt!08-27-18 US AGA, sl SCH11/05/2018: Anatomy US complete & normal, BOY!//KRA Problem Name Start Date End Date Resolution Snomed Code Not e Supervision of high risk for primigravida age 15 years or younger done 08/19/2018 [id number] Urinary tract infection in 08/23/2018 [id number] Asymptomatic - [ x] ADELSO @ 16 wksCoagulase Negaive Staphylococcus species Rx Macrobid[x] ADELSO collected 11/05 no growth Genital Molluscum contagiosum 09/17/2018 [id number] Noted on OB PE screening 08/19/2018 [id number] [x ] FTS - declined[ x] AFP-declinedGenetic testing not [facility] 08-27-18 AGA, sl RON Active or passive immunization 08/19/2018 [id number] - Flu vaccine[ x] Tdap 01/14/19 Anemia of 12/30/2018 [id number] Hgb 10.5 @ 28wk Teenage [id number] 18 -year-old mom/kate [facility], 20-year-old FOB; good family support Blood group O Rh(D) negative 12/30/2018 [id number] rhogam given 28 wk, neg ab screen Brayan Calculation Initial Brayan Date Initial Exam Date Initial Exam Provider Initial Ultrasound Date Last Menstrual Period Date Ultra Sound Weeks Gestation 03/24/2019 08/19/2018 [email or web address] 08/27/2018 06/17/2018 9 Eighteen To Twenty Week Brayan Update Ultra Sound Date Fundal Height At Umbil Quickening Date Ultra Sound Latest Weeks Gestation Final Brayan Confirmed By Final Brayan Confirmed Date Final Brayan Date Ultra Sound Latest Days Gestation 11/06/19 19 20 [email or web address] 08/27/2018 03/24/20 19 0 Pre- Flowsheet Flowsheet Date 08/19/2018 Morales Score Blood Edema Fundus Height Fundus Units Glucose Ketones Leukocytes Nitrite Labor Signs Protein Cervic Dilation Cervic Effacement Cervic Station neg none none negative none Negative neg Type Weight in lbs Pre/Post Dialysis Refused With clothes 127.162992029198 BP Diastolic BP Location Tested BP Systolic BP Type 60 112 sitting Fetus Heart Rate Present Fetus Movement Comments obhx, no lof, no vb, discuss ed screening test-ctGentri presents today for OB Hx. She states this was not a planned , but she was not using any BC. She is complaning of occasional nausea. Reviewed plan of care. She would like FTS, will need to schedule after dating US. She is taking PNV from [place] [facility]. F/U 1 wk. Flowsheet Date 08/27/2018 Morales Score Blood Edema Fundus Height Fundus Units Glucose Ketones Leukocytes Nitrite Labor Signs Protein Cervic Dilation Cervic Effacement Cervic Station neg none none negative none Negative neg Type Weight in lbs Pre/Post Dialysis Refused Weight 127.904613139791 BP Diastolic BP Location Tested BP Systolic BP Type 64 108 sitting Fetus Heart Rate Present A 192 Fetus Movement Comments no lof, no vb. c/o vomiting, not currently taking meds for relief. states was told not to take zofran and is going to get b6, unisom and nahed at store. dating u/s today. bsUS discussed: AGA but slight RON: no Sx referable to that. Anti emesis inst also given. Ask about Doctor notes for yesterday and today/DRW Flowsheet Date 09/16/2018 Morales Score Blood Edema Fundus Height Fundus Units Glucose Ketones Leukocytes Nitrite Labor Signs Protein Cervic Dilation Cervic Effacement Cervic Station neg none none negative none Negative Cramping neg Type Weight in lbs Pre/Post Dialysis Refused With clothes 127.178663727156 BP Diastolic BP Location Tested BP Systolic BP Type 70 110 sitting Fetus Heart Rate Present A 168 Present Fetus Movement A No Comments Ob PE, No lof or VB. Pt c/o cramping. List of questions regarding many subjects per her mother. Recommend colace PRN and fiber supplements for worsening constipation. She has finished all Macrobid. No vaginal bleeding or discharge noted. Declines genetic screening due to no coverage. Follow up in 4 weeks. Flowsheet Date 10/15/2018 Morales Score Blood Edema Fundus Height Fundus Units Glucose Ketones Leukocytes Nitrite Labor Signs Protein Cervic Dilation Cervic Effacement Cervic Station Type Weight in lbs Pre/Post Dialysis Refused BP Diastolic BP Location Tested BP Systolic BP Type Fetus Heart Rate Present Fetus Movement Comments Flowsheet Date 10/15/2018 Morales Score Blood Edema Fundus Height Fundus Units Glucose Ketones Leukocytes Nitrite Labor Signs Protein Cervic Dilation Cervic Effacement Cervic Station neg none 17 wks none negative trace Negative none neg Type Weight in lbs Pre/Post Dialysis Refused Weight 124.298008357578 BP Diastolic BP Location Tested BP Systolic BP Type 70 104 sitting Fetus Heart Rate Present A Present Fetus Movement A No Comments No vb, lof or unusual d/c. D eclines genetic testing. Not vomiting anymore but does not have an appetite. mdr//No FM yet. Declined Quad screen today. Completed all Macrobid. UA Cx today. C/O dizziness. Enc to inc water and salt. Discussed adding prot for wt gain and maintain BS. RTC 3 wks with anatomy scan. RH Flowsheet Date 11/05/2018 Morales Score Blood Edema Fundus Height Fundus Units Glucose Ketones Leukocytes Nitrite Labor Signs Protein Cervic Dilation Cervic Effacement Cervic Station neg none 20 wks none negative none Negative none neg Type Weight in lbs Pre/Post Dialysis Refused With clothes 126.59920403718 BP Diastolic BP Location Tested BP Systolic BP Type 64 118 sitting Fetus Heart Rate Present A 157 Present Fetus Movement A Yes Comments g&a us,afm,no vb,no lof,neg leuk,neg nitr, no new complaints voiced/kh//Here for Anatomy US. Complete & Normal. BOY. Having gender reveal Sunday. No VB, LOF, cramping, heartburn, nausea, emesis. ADELSO urine culture collected. Return in 4 weeks. KRA Flowsheet Date 12/04/2018 Morales Score Blood Edema Fundus Height Fundus Units Glucose Ketones Leukocytes Nitrite Labor Signs Protein Cervic Dilation Cervic Effacement Cervic Station neg 24 cm none moderate none Negative none neg Type Weight in lbs Pre/Post Dialysis Refused Weight 130.370840243501 BP Diastolic BP Location Tested BP Systolic BP Type 58 112 sitting Fetus Heart Rate Present A Present Fetus Movement A Yes Comments No lof, vb, or unusual d/c. Says had an episode yesterday of one blood spot in her underwear but admits recent intercourse. Went to ER recently for not feeling well, gave her Robitussin and benadryl. abr//Baby active. She has been having sinus issues. Seen in ER. Benadryl helps. Enc hot liquids. No active bleeding today. Reassured. RTC 4 wks with 1 hr gtt, CBC, Antibody screen and Rhogam. RH Flowsheet Date 12/30/2018 Morales Score Blood Edema Fundus Height Fundus Units Glucose Ketones Leukocytes Nitrite Labor Signs Protein Cervic Dilation Cervic Effacement Cervic Station neg none 28 cm none negative none Negative Other (see comments ) neg Type Weight in lbs Pre/Post Dialysis Refused With clothes 138.203051384518 BP Diastolic BP Location Tested BP Systolic BP Type 70 118 sitting Fetus Heart Rate Present A 140 Fetus Movement A Yes Comments here for 1 hr gtt/cbc/antibo dy screen and rhogam, c/o dfm/cramping baby still moving just not as much as before, neg leuks, neg nits, no lof, no vb, questions regarding homebound.JRMHere for 1hr and OV; feels well; doesn't feel fetus as much when she is up busy, but he moves when she sits down; disc monitoring mvmt/kickcounts; disc adequate hydration as well as she has had occ RLQ discomfort at times; no further q/c; rto 2 wks for OV and Tdap;dgt Flowsheet Date 01/14/2019 Morales Score Blood Edema Fundus Height Fundus Units Glucose Ketones Leukocytes Nitrite Labor Signs Protein Cervic Dilation Cervic Effacement Cervic Station neg 30 cm none negative none Negative none neg Type Weight in lbs Pre/Post Dialysis Refused Weight 137.634761923766 BP Diastolic BP Location Tested BP Systolic BP Type 72 116 Fetus Heart Rate Present A Present Fetus Movement A Yes Comments Doing well. baby active. c/o of rash for several month, burning located genital. Scheduled 01/16/19 for Root canal with [facility]. desired TDAP next visit.//Advised to doing this today and she agreed. External pelvic exam shows areas of concern for her that her molluscum contagiosum had been told this at initial visit as well. She has burning in the hairline more on right than left and this appears to be mostly folliculitis from hair growth. Advised hydrocortisone as needed and stop shaving. No labial involvement/erythema discharge or lesions. Reviewed normal labs from last visit. Plans to stay on homebound until July 2019 term. Will be starting kate yr [facility]/ RTO 2 weeks/ls Flowsheet Date 01/28/2019 Morales Score Blood Edema Fundus Height Fundus Units Glucose Ketones Leukocytes Nitrite Labor Signs Protein Cervic Dilation Cervic Effacement Cervic Station neg none 32 cm none small none Negative none neg Type Weight in lbs Pre/Post Dialysis Refused With clothes 138.153012799196 BP Diastolic BP Location Tested BP Systolic BP Type 64 118 sitting Fetus Heart Rate Present A 150 Present Fetus Movement A Yes Comments afm,no vb,no lof,neg leuk,ne g nitr, no new complaints voiced/kh///Doing well. No complaints. No VB, LOF, ctx. Good FM. Baby is going to be named Eliceo. . Encouraged classes. Small ketones--encouraged PO hydration. Return in 2 wk. KRA Menstrual History Last Menstrual Date Menses Monthly On Bcp Conception Prior Menses Frequency Hcg Plus Date Menarche Onset Age 1206/17/2018 11 Genetic Screening And Infection History Question Response Note Patient's Age Will Be 35 Yea rs Or Older At Estimated Date of Delivery false Thalassemia (B[place]i, [place]er, Mediterranean, Or Background): MCV < 80 false Neural Tube Defect (Meningom yelocele, Spina Bifida, Or Anencephaly) false Congenital Heart Defect false Down Syndrome false Nilson-Sachs (eg, Shinto, Cajun , Greenlandic-Cymro) false Jaycee Disease false Sickle Cell Disease Or Trait () false Hemophilia Or Other Blood Disorders false Muscular Dystrophy false Cystic Fibrosis false [place]'s Chorea false Mental Retardation/Autism false If Yes, Was Person Tested Fo r Fragile X? false Other Inherited Genetic Or C hromosomal Disorder true brother has Multiple epiphys eal dysplasia ? Maternal Metabolic Disorder (eg, Type 1 Diabetes, PKU) false Patient Or Baby's Father Had A Child With Defects Not Listed Above false Recurrent Loss, Or A Stillbirth false Medications (including Suppl ements, Vitamins, Herbs, OTC Drugs), Illicit/Recreational Drugs, Alcohol true vitamins If Yes, Agent(s) And Strength/Dosage false Any Other Genetic History false Live With Someone With TB Or Exposed To TB false Patient Or Partner Has Histo ry Of Genital Herpes false Rash Or Viral Illness Since Last Menstrual Period false History Of STD, Gonorrhea, C hlamydia, HPV, Syphilis false Other Infection History false History of HIV false History of Hepatitis false Prior GBS-infected child false Recent Travel Outside of Country false Plans and Education First Trimester Discussed Date Discussion Item Discussion Note Discuss ed By 08/19/2018 Desire for Unplanned - no BC ky [id number] 08/19/2018 Alcohol NO 08/19/2018 Illicit/recreational drugs NO vicente [email or web address] 08/19/2018 Nutrition Reivewed 08/19/2018 Weight gain counseling ~25 lbs bianca g108/19/2018 Intimate Partner Violence NO ky [id number] 08/19/2018 Unstable Housing No [id number] 08/19/2018 Use of any medicatio ns (including supplements, vitamins, herbs, or OTC drugs) PNV 08/19/2018 Avoidance of saunas or hot tubs [id number] 08/19/2018 Indications for ultrasonography 08/19/2018 Comminucation Barriers NO kyoun g108/19/2018 Anticipated course o f care Discussed 08/19/2018 Toxoplasmosis precau tions (cats/raw meat) No cats [id number] 08/19/2018 Sexual activity [id number] 08/19/2018 Exercise 08/19/2018 Tobacco/smoking cess ation counseling (ask, advise, assess, assist, and arrange) No [email or web address] 08/19/2018 Barriers to Care NO [email or web address] 08/19/2018 Environmental/work hazards No k 08/19/2018 Depression/Anxiety ( should be performed at least once during period) NO 08/19/2018 WIC/Hands Referral Has alreday been to th e HD 08/19/2018 Nutrition counseling ; special diet; dietary precautions (mercury, listeriosis) 08/19/2018 Dental Care / Refer to Dentist [email or web address] 08/19/2018 Seat belt use 08/19/2018 Childbirth classes/h ospital facilities [id number] 08/19/2018 Breast feeding [id number] 08/19/2018 Screening for aneuploidy kyo [id number] Second Trimester Discussed Date Discussion Item Discussion Note Discuss ed By Reproductive Life Pl anning & Contraception [place] Third Trimester Discussed Date Discussion Item Discussion Note Discuss ed By Pain Management Plans Epidural Circumcision Preference Yes Delivery Information Delivery Date Delivery Type Labor Anesthesia Weeks Gestation Incision Type Labor Labor Length Hrs Delivered By Post Complications Tubal Sterilization Discharge Date Comments [address] Taylor Amaro None 02/15/2019 delivery labor Discharge Information Feeding Method Contraceptive Method Maternal HG B and HCT Levels
== END 2025-04-24 23:59 | disposition home or self-care (01) ==
LOC: RAD 13:27
PROVIDERS: PCP Radiology Diagnostic Radiology; Visit Provider Nurse Practitioner Obstetrics & Gynecology
DX: O99.013 Anemia complicating pregnancy, third trimester (principal); O36.5930 Maternal care for other known or suspected poor fetal growth, third trimester, not applicable or unspecified; D64.9 Anemia, unspecified; Z36.3 Encounter for antenatal screening for malformations; Z3A.35 35 weeks gestation of pregnancy
CPT/HCPCS: 76816; 76819

== ENCOUNTER 2025-04-29 08:59 | Outpatient (CLI) | payer OTHER, SELFPAY ==
--- OUTSIDE RECORDS SUMMARY | 2025-05-01 09:04 | XMS_ITS | Clinical Summary ---
Author Organization Healthcare Address [address] [place] [address] Care Team Providers Care Tree Farmer Name Role Phone Unavailable Primary Care Provider [...]
--- OUTSIDE RECORDS SUMMARY | 2025-05-01 09:04 | XMS_ITS | Clinical Summary ---
Author Organization [employer] ([place], [place], [place], [place]) Address [address] [place] [address] Care Team Providers Care Hog Dropper Name Role Phone Unavailable Primary Care Provider [...] Date Rob rded Speak language other than Kyrgyz at home Not on file 07/28/2023 Want [...] 2025 Influenza Vaccine (#1) 2025 Insurance [employer] [facility]
--- OUTSIDE RECORDS SUMMARY | 2025-05-01 09:04 | XMS_ITS | Referral Summary ---
Author Organization [employer] ([place], [place], [place], [place]) Address [address] [place] [address] Care Team Providers Care Living Specialist Name Role Phone Unavailable Primary Care [...] Date Rob rded Speak language other than Azerbaijani at home Not on file 07/28/2023 Want [...] of Treatment Not on file Insurance [employer] [facility]
== END 2025-04-29 23:59 | disposition home or self-care (01) ==
LOC: LAB.DROPOF 05-01 09:00
PROVIDERS: PCP Radiology Diagnostic Radiology; Visit Provider Nurse Practitioner Obstetrics & Gynecology
DX: Z34.83 Encounter for supervision of other normal pregnancy, third trimester (principal); Z3A.00 Weeks of gestation of pregnancy not specified
CPT/HCPCS: 86403

== ENCOUNTER 2025-05-18 16:46 | Inpatient (IN) | payer OTHER, SELFPAY ==
--- OUTSIDE RECORDS SUMMARY | 2025-05-18 16:51 | XMS_ITS | Referral Summary ---
Author Organization [employer] ([place], [place], [place], [place], [place]) Address [address] [place] [address] Care Team Providers Care Host Hostess Name Role Phone Unavailable Primary Care Provider [...] Date Rob rded Speak language other than [place] at home Not on file 07/28/2023 Want [...] Plan of Treatment Not on file Insurance [facility]
--- OUTSIDE RECORDS SUMMARY | 2025-05-18 16:51 | XMS_ITS | Data Portability ---
Author Organization [facility] Address [address] [place] [address] Assessment No assessment recorded. Plan of Treatment Reminders Order Date Submit Date Provider Last Modified By Organization Details Last Modified Time Details Appointments None record ed. Lab urinal ysis, dipsti ck 2024 025 abelardo Dickinson Engineering Inspector, [address] [place] [address] , [place], [address], 5 11:05:07 urinal ysis, dipsti ck 2024 025 adrian Dickinson Engineering Inspector, [address] [place] [address] , [place], [address], 5 14:48:34 urinal ysis, dipsti ck 2024 025 adrian Dickinson Engineering Inspector, [address] [place] [address] , [place], [address], 5 12:08:29 afp (alpha -fetop rotein ) panel, matern al screen , serum 2024 025 JENNIFER [facility], [address], [address] [address], [place], [address], 5 03:08:05 urinal ysis, dipsti ck [email or web address] [place] [address] Engineering Inspector, [address] [place] [address] , [place], [address], 5 11:31:04 cytolo gy report , thin prep, smear or scrapi ng, cervic al or vagina l 2024 025 JENNIFER [facility], [address], [address] [address], [place], [address], 5 22:10:46 cultur e, urine 2024 025 JENNIFER [facility], [address], [place] [address], [place], [address], 5 22:10:45 urinal ysis, dipsti ck 2024 025 [facility] Dickinson Engineering Inspector, [address] [place] [address] , [place], [address], 5 11:19:07 STI panel 2024 025 ENTERPRISE [facility], [address], [place] [address], [place], [address], 5 13:20:46 Referral None record ed. Procedures None record ed. Surgeries None record ed. Imaging US, obstet guido, 2nd trimes ter [address] Engineering Inspector, [address] [place] [address] , [place], [address], 5 14:49:10 US, obstet guido, transv aginal [address] Engineering Inspector, [address] [place] [address] , [place], [address], 5 14:49:10 US, obstet guido, transv aginal 2024 025 [email or web address], [address] [facility] , [place], [address], 11:29:28 Medication Orders None record ed. Patient TargetsNo targets recorded. Patient Instructions Encounter Date Encounter Id Patient Instructions Last Modified By Organization Details Last Modified Time 11/17/2024 [id number] body mass index: care instructions [email or web address] Not available 11/17/2024 11:19:07 learning about healthy weight [email or web address] Not available 11/17/2024 11:19:07 high-risk : care instructions [email or web address] Not available 11/17/2024 11:19:07 12/16/2024 [id number] high-risk : care instructions [email or web address] Not available 12/16/2024 11:29:28 02/10/2025 [id number] high-risk : care instructions abelardo Not available 02/10/2025 11:05:07 Reason for Referral None Reported. Results Created Date Observation Date Name Description Value Unit Range Abnormal Flag Note LastModifiedBy Organization Detail LastModifiedTime 10/28/1910/31/2024 MATER NIT21 PLUS CORE gestation Single ton Not Available [facility] ([facility]) [address] [place], [address], 10/31/2024 09:07:44 10/28/19 25 10/31/2024 MATER NIT21 PLUS CORE fraction 13% Not Available [facility] ([facility]) [address] [place], [address], 10/31/2024 09:07:44 10/28/1910/31/2024 MATER NIT21 PLUS CORE gestational age > or = 9W: Yes Not Available [facility] ([facility]) [address] [place], [address], 10/31/2024 09:07:44 10/28/19 25 10/31/2024 MATER NIT21 PLUS CORE test result Negati ve Not Available [facility] ([facility]) [address] [place], [address], 10/31/2024 09:07:44 10/28/1910/31/2024 MATER NIT21 PLUS CORE chemical lab technician comments Reyna Hobbs speci men showe d an expec elle repre senta tion of chrom osome 21, 18 and 13 mater ial. Clini vanessa corre latio n is suglorenzo devriesd. Not Available [facility] ([facility]) [address] [facility], [place], [address], 10/31/2024 09:07:44 10/28/1910/31/2024 MATER NIT21 PLUS CORE approved by Reyna davis MD, PhD, [facility], [place] Labor atori es Not Available [facility] ([facility]) [address] [facility], [place], [address], 10/31/2024 09:07:44 10/28/1910/31/2024 MATER NIT21 PLUS CORE trisomy 21 (down syndrome) Negati ve Not Available [facility] ([facility]) [address] [facility], [place], [address], 10/31/2024 09:07:44 10/28/1910/31/2024 MATER NIT21 PLUS CORE trisomy 18 (hunter syndrome) Negati ve Not Available [facility] ([facility]) [address] [place], [address], 10/31/2024 09:07:44 10/28/1910/31/2024 MATER NIT21 PLUS CORE trisomy 13 (patau syndrome) Negati ve Not Available [facility] ([facility]) [address] [facility], [place], [address], 10/31/2024 09:07:44 10/28/1910/31/2024 MATER NIT21 PLUS CORE sex Reyna weiss Consi stent with Male Not Available [facility] ([facility]) [address] [place], [address], 10/31/2024 09:07:44 10/28/1910/31/2024 MATER NIT21 PLUS CORE negative predictive value Note The Negat mikey Predi ctive Value (NPV) for triso my 21, 18, and 13 is great er than 99%. The NPV for SCA and ESS canno t be calcu lated as SCA and ESS are only repor elle when an abnor malit y is detec elle. Not Available [facility] ([facility]) [address] [facility], [place], [address], 10/31/2024 09:07:44 10/28/1910/31/2024 MATER NIT21 PLUS CORE positive predictive value N/A Not Available [facility] ([facility]) [address] [facility], [place], [address], 10/31/2024 09:07:44 10/28/1910/31/2024 MATER NIT21 PLUS CORE [...] ated. Not Available [facility] ([facility]) [address] [facility], [place], [address], 10/31/2024 09:07:44 10/28/1910/31/2024 MATER NIT21 PLUS CORE test method Commen t See Notes Circu latin g cell- free DNA was purif ied from the plasm a compo nent of mater nal blood . The extra cted DNA was then conve rted into a [facility] DNA danish ry for aneup loidy cha [...] 22. Not Available [facility] ([facility]) [address] [facility], [place], [address], 10/31/2024 09:07:44 10/28/1910/31/2024 MATER NIT21 PLUS CORE performance Commen t The perfo rmanc e lima cteri stics of the Mater niT(R ) 21 PLUS labor atory -deve loped test (LDT) have been deter mined in a clini vanessa valid ation study with pregn ant women at incre ased risk for chrom osoma l aneup loidy .[1-4 ] Not Available [facility] ([facility]) [address] [facility], [place], [address], 10/31/2024 09:07:44 10/28/1910/31/2024 MATER NIT21 PLUS CORE [...] only. Not Available [facility] ([facility]) [address], [place], [address], 10/31/2024 09:07:44 10/28/1910/31/2024 MATER NIT21 PLUS CORE [...] ). Not Available [facility] ([facility]) [address] [facility], [place], [address], 10/31/2024 09:07:44 10/28/1910/31/2024 MATER NIT21 PLUS CORE note Commen t See Notes [employer] is a subsi diary of Labor atory Corpo ratio n [employer], using the brand [employer]. This test was devel oped and its perfo rmanc e lima cteri stics deter mined by [employer]. It has not been clear ed [...] men will be avail able until term. [facility] sampl es will not be retai eddie beyon d 60 days. [facility] patie nts will have to send a new sampl e for re-se quenc ing ([facility] Test Code: 51078 4). Not Available [facility] ([facility]) [address] [facility], [place], [address], 10/31/2024 09:07:44 10/28/1910/31/2024 MATER NIT21 PLUS CORE [...] 2020. Not Available [facility] ([facility]) [address] [facility], [place], [address], 10/31/2024 09:07:44 10/28/19 25 10/31/2024 MATER NIT21 PLUS CORE pdf . Not Available [facility] ([facility]) [address] [facility], [place], [address], 10/31/2024 09:07:44 11/18/19 25 11/18/2024 URINE CULTU RE, ROUTI NE urine culture, routine Final report Not Available [facility] ([facility]) [address] [facility], [place], [address], 11/18/2024 22:10:45 11/18/1911/18/2024 URINE CULTU RE, ROUTI NE result 1 No growth Not Available [facility] ([facility]) [address] [facility], [place], [address], 11/18/2024 22:10:45 11/18/19 25 11/18/2024 IGP,C TNGTV ,RFX APTIM A HPV ASCU diagnosis: Commen t NEGAT MIKEY FOR INTRA EPITH ELIAL MARIAN N OR GEORGE KEMP . Not Available [facility] ([facility]) [address] [facility], [place], [address], 11/18/2024 22:10:46 11/18/19 25 11/18/2024 IGP,C TNGTV ,RFX APTIM A HPV ASCU specimen adequacy: Commen t Satis facto ry for evalu ation . Endoc ervic al and/o r squam ous metap lasti c cells (endo cervi vanessa compo nent) are prese nt. Not Available [facility] ([facility]) [address] [facility], [place], [address], 11/18/2024 22:10:46 11/18/19 25 11/18/2024 IGP,C TNGTV ,RFX APTIM A HPV ASCU clinician provided ICD10: Commen t Z12.4 Z11.3 Not Available [facility] ([facility]) [address] [facility], [place], [address], 11/18/2024 22:10:46 11/18/1911/18/2024 IGP,C TNGTV ,RFX APTIM A HPV ASCU performed by: Reyna Mccormick , Cytol ogorlin (ASCP ) Not Available [facility] ([facility]) [address] [place], [address], 11/18/2024 22:10:46 11/18/1911/18/2024 IGP,C TNGTV ,RFX APTIM A HPV ASCU . . Not Available [facility] ([facility]) [address] [facility], [place], [address], 11/18/2024 22:10:46 11/18/1911/18/2024 IGP,C TNGTV ,RFX APTIM [...] . Not Available [facility] ([facility]) [address] [facility], [place], [address], 11/18/2024 22:10:46 11/18/1911/18/2024 IGP,C TNGTV ,RFX APTIM A HPV ASCU test methodology: Renya weiss This liqui d based ThinP rep(R ) pap test was scree eddie with the use of an image guide husam thorne Not Available [facility] ([facility]) [address] [place], [address], 11/18/2024 22:10:46 11/18/19 25 11/18/2024 IGP,C TNGTV ,RFX APTIM A HPV ASCU . Commen t The HPV DNA refle x crite yluia were not met with this speci men resul t there fore, no HPV testi ng was perfo rmed. Not Available [facility] ([facility]) [address] [place], [address], 11/18/2024 22:10:46 11/18/19 25 11/18/2024 IGP,C TNGTV ,RFX APTIM A HPV ASCU chlamydia, nuc. acid amp Negati ve negati ve Not Available [facility] ([facility]) [address] [place], [address], 11/18/2024 22:10:46 11/18/19 25 11/18/2024 IGP,C TNGTV ,RFX APTIM A HPV ASCU gonococcus, nuc. acid amp Negati ve negati ve Not Available [facility] ([facility]) [address] [place], [address], 11/18/2024 22:10:46 11/18/19 25 11/18/2024 IGP,C TNGTV ,RFX APTIM A HPV ASCU trich vag by LEVAR Negati ve negati ve Not Available [facility] ([facility]) [address] [place], [address], 11/18/2024 22:10:46 11/18/19 25 11/20/2024 NUSWA B VG PLUS+ MYCOP LASMA S,LEVAR atopobium vaginae High - 2 score abnormal Not Available [facility] ([facility]) [address] [place], [address], 11/21/2024 13:20:46 11/18/19 25 11/20/2024 NUSWA B VG PLUS+ MYCOP LASMA S,LEVAR bvab 2 High - 2 score abnormal Not Available [facility] ([facility]) [address] [place], [address], 11/21/2024 13:20:46 11/18/19 25 11/20/2024 NUSWA B [...] BV. Not Available [facility] ([facility]) [address] [facility], [place], [address], 11/21/2024 13:20:46 11/18/19 25 11/20/2024 NUSWA B VG PLUS+ MYCOP LASMA S,LEVAR caleb albicans, LEVAR Negati ve negati ve Not Available [facility] ([facility]) [address] [place], [address], 11/21/2024 13:20:46 11/18/19 25 11/20/2024 NUSWA B VG PLUS+ MYCOP LASMA S,LEVAR caleb glabrata, LEVAR Negati ve negati ve Not Available [facility] ([facility]) [address] [place], [address], 11/21/2024 13:20:46 11/18/19 25 11/20/2024 NUSWA B VG PLUS+ MYCOP LASMA S,LEVAR trich vag by LEVAR Negati ve negati ve Not Available [facility] ([facility]) [address] [place], [address], 11/21/2024 13:20:46 11/18/19 25 11/20/2024 NUSWA B VG PLUS+ MYCOP LASMA S,LEVAR chlamydia trachomatis, LEVAR Negati ve negati ve Not Available [facility] ([facility]) [address] [facility], [place], [address], 11/21/2024 13:20:46 11/18/19 25 11/20/2024 NUSWA B VG PLUS+ MYCOP LASMA S,LEVAR neisseria gonorrhoeae, LEVAR Negati ve negati ve Not Available [facility] ([facility]) [address] [facility], [place], [address], 11/21/2024 13:20:46 11/18/19 25 11/20/2024 NUA B VG PLUS+ MYCOP LASMA S,LEVAR mycoplasma hominis LEVAR Negati ve negati ve Not Available [facility] ([facility]) [address] [facility], [place], [address], 11/21/2024 13:20:46 11/18/19 25 11/20/2024 NUA B VG PLUS+ MYCOP LASMA S,LEVAR ureaplasma spp LEVAR Positi ve negati ve abnormal Not Available [facility] ([facility]) [address] [facility], [place], [address], 11/21/2024 13:20:46 11/18/19 25 11/21/2024 NUSWA B VG PLUS+ MYCOP LASMA S,LEVAR mycoplasma genitalium LEVAR Negati ve negati ve Not Available [facility] ([facility]) [address] [place], [address], 11/21/2024 13:20:46 12/17/19 25 12/17/2024 AFP, SERUM , OPEN SPINA BIFID A comment: Reyna davidson , Ph.D. , [facility] Direc tor Refer ences : Avail able Upon Reque st. Multi ples Of Media n Cutof fs For AFP [place] tions Singl eton 2.5 Black 2.8 IDD 2.0 Twins 4.5 Abbre viati on Defin ition s IDD - Insul in Dep Diabe sandor OSBR - Open Spina Bifid a Risk For furth er inqui cristofer conta ct [facility] Tay ics Servi jesus at [phone] [phone]. This test was cici fagan and its perfo rmanc e lima cteri stics deter mined by [facility]. It has not been clear ed or appro prudence by the Food and Drug Admin istra tion. Not Available [facility] ([facility]) [address] [place], [address], 12/20/2024 03:08:05 12/17/19 25 12/19/2024 AFP, SERUM , OPEN SPINA BIFID A results Report Not Available [facility] ([facility]) [address] [place], [address], 12/20/2024 03:08:05 12/17/19 25 12/19/2024 AFP, SERUM , OPEN SPINA BIFID A test results: *Scree n Negati ve* Not Available [facility] ([facility]) [address] [facility], [place], [address], 12/20/2024 03:08:05 12/17/19 25 12/19/2024 AFP, SERUM , OPEN SPINA BIFID A gest. age on collection date 16.4 weeks Not Available [facility] ([facility]) [address] [place], [address], 12/20/2024 03:08:05 12/17/19 25 12/19/2024 AFP, SERUM , OPEN SPINA BIFID A gestat. age based on BRAYAN 05/30 Recal culat ions are not recom sulaiman d when gesta alo l datin g by LMP and ultra sound are withi n 10 days. Not Available [facility] ([facility]) [address] [place], [address], 12/20/2024 03:08:05 12/17/19 25 12/19/2024 AFP, SERUM , OPEN SPINA BIFID [age] Not Available [facility] ([facility]) [address] [place], [address], 12/20/2024 03:08:05 12/17/19 25 12/19/2024 AFP, SERUM , OPEN SPINA BIFID A race Caucas eleni Not Available [facility] ([facility]) [address] [place], [address], 12/20/2024 03:08:05 12/17/19 25 12/19/2024 AFP, SERUM , OPEN SPINA BIFID A weight 158 lbs Not Available [facility] ([facility]) [address] [place], [address], 12/20/2024 03:08:05 12/17/19 25 12/19/2024 AFP, SERUM , OPEN SPINA BIFID A insulin dep diabetes Yes Not Available [facility] ([facility]) [address] [place], [address], 12/20/2024 03:08:05 12/17/19 25 12/19/2024 AFP, SERUM , OPEN SPINA BIFID A multiple gestation No Not Available [facility] ([facility]) [address] [place], [address], 12/20/2024 03:08:05 12/17/19 25 12/19/2024 AFP, SERUM , OPEN SPINA BIFID A AFP value 46.7 NG/mL Not Available [facility] ([facility]) [address] [place], [address], 12/20/2024 03:08:05 12/17/19 25 12/19/2024 AFP, SERUM , OPEN SPINA BIFID A AFP MOM 1.73 Not Available [facility] ([facility]) [address] [place], [address], 12/20/2024 03:08:05 12/17/19 25 12/19/2024 AFP, SERUM , OPEN SPINA BIFID A OSBR risk 1 in 452 Not Available [facility] ([facility]) [address] [facility], [place], [address], 12/20/2024 03:08:05 12/17/19 25 12/19/2024 AFP, SERUM [...] . Not Available [facility] ([facility]) [address] [facility], [place], [address], 12/20/2024 03:08:05 12/17/19 25 12/19/2024 AFP, SERUM , OPEN SPINA BIFID A pdf . Not Available [facility] ([facility]) [address] [facility], [place], [address], 12/20/2024 03:08:05 02/03/20 25 02/02/2025 URINA LYSIS COMPL ETE note See Note Order ing Provi jeri: STORM Baker CNM Not Available [address] , [place], [address], 02/02/2025 01:01:59 02/03/20 25 02/02/2025 URINA LYSIS COMPL ETE UA method of collection CLEAN CATCH Not Available [address] [place], [address], 02/02/2025 01:01:59 02/03/2002/02/2025 URINA LYSIS COMPL ETE UA color YELLOW yellow Not Available [address] [place], [address], 02/02/2025 01:01:59 02/03/2002/02/2025 URINA LYSIS COMPL ETE UA appearance CLEAR clear Not Available [address] [place], [address], 02/02/2025 01:01:59 02/03/2002/02/2025 URINA LYSIS COMPL ETE UA glucose dipstick NEGATI VE negati ve Not Available [address] [place], [address], 02/02/2025 01:01:59 02/03/2002/02/2025 URINA LYSIS COMPL ETE UA bilirubin dipstick NEGATI VE negati ve Not Available [address] [place], [address], 02/02/2025 01:01:59 02/03/2002/02/2025 URINA LYSIS COMPL ETE UA ketone dipstick 3+ negati ve abnormal Not Available [address] [place], [address], 02/02/2025 01:01:59 02/03/2002/02/2025 URINA LYSIS COMPL ETE UA specific gravity 1.010 1.005- 1.030 normal Not Available [address] [place], [address], 02/02/2025 01:01:59 02/03/20 25 02/02/2025 URINA LYSIS COMPL ETE UA blood dipstick NEGATI VE negati ve Not Available [address] , [place], [address], 02/02/2025 01:01:59 02/03/2002/02/2025 URINA LYSIS COMPL ETE UA pH dipstick 7.0 5.0-9. 0 normal Not Available [address] [place], [address], 02/02/2025 01:01:59 02/03/2002/02/2025 URINA LYSIS COMPL ETE UA protein dipstick NEGATI VE negati ve Not Available [address] [place], [address], 02/02/2025 01:01:59 02/03/2002/02/2025 URINA LYSIS COMPL ETE UA urobilinogen dipstick NEGATI VE mg/dL <1 Not Available [address] [place], [address], 02/02/2025 01:01:59 02/03/2002/02/2025 URINA LYSIS COMPL ETE UA nitrite dipstick NEGATI VE negati ve Not Available [address] , [place], [address], 02/02/2025 01:01:59 02/03/2002/02/2025 URINA LYSIS COMPL ETE UA leukocyte esterase dipstick TRACE negati ve Not Available [address] [place], [address], 02/02/2025 01:01:59 02/03/2002/02/2025 URINA LYSIS COMPL ETE UA RBC NONE SEEN RBC/h pf none seen Not Available [address] [place], [address], 02/02/2025 01:01:59 02/03/20 02/02/2025 URINA LYSIS COMPL ETE UA WBC 0-5 WBC/h pf 0-5 Not Available [address] [place], [address], 02/02/2025 01:01:59 02/03/20 25 02/02/2025 URINA LYSIS COMPL ETE UA epithelial cells 0-5 SQUAMO US epi/h pf 0-5 Not Available [address] , [place], [address], 02/02/2025 01:01:59 02/03/2002/02/2025 URINA LYSIS COMPL ETE UA bacteria NONE SEEN none seen Not Available [address] , [place], [address], 02/02/2025 01:01:59 02/03/2002/02/2025 URINA LYSIS COMPL ETE UA mucus NONE SEEN none seen Not Available [address] [place], [address], 02/02/2025 01:01:59 02/03/20 25 02/02/2025 URINA LYSIS COMPL ETE UA amorphous sediment NONE SEEN none seen Not Available [address] , [place], [address], 02/02/2025 01:01:59 02/03/2002/02/2025 URINA LYSIS COMPL ETE performing lab see note ML - [facility] [address] [facility] [id number] Not Available [address] [place], [address], 02/02/2025 01:01:59 02/03/20 25 02/02/2025 [place] note See Note Order ing Provi jeri: SENIOR ENVIRONMENTAL PRACTICE LEADER Rebec ca Garcíage CNM Not Available [address] [place], [address], 02/02/2025 01:03:00 02/03/2002/02/2025 [place] wet mount See Below [place] (F) Becca Date/ Time: 02/02 00:35 Madhuri Date/ Time: 02/02 01:00 SOURC E: VAGIN AL SPEC DESC: BACTE YULIA: RARE BACTE YULIA EPITH ELIAL CELLS : 4+ EPITH ELIAL CELLS TRICH OMONA S: NO TRICH OMONA S SEEN WBC'S : RARE WBC'S YEAST : NO YEAST SEEN Not Available [address] , [place], [address], 02/02/2025 01:03:00 02/03/20 25 02/02/2025 [place] performing lab see note ML [facility] [address] [facility] [id number] Not Available [address] , [place], [address], 02/02/2025 01:03:00 10/21/19 25 10/17/2024 US, obste tric, 1st trime ster No observ ation record ed. BARCODE Dickinson Engineering Inspector [address] [place] [address] , [place], [address], 10/20/2024 11:51:06 12/16/19 25 12/16/2024 US, obste tric, trans vagin al No observ ation record ed. adrian Dickinson Engineering Inspector [address] [place] [address] , [place], [address], 12/16/2024 11:29:24 12/17/19 25 12/16/2024 US, obste tric, trans vagin al No observ ation record ed. BARCODE Dickinson Engineering Inspector [address] [place] [address] , [place], [address], 12/16/2024 17:14:38 01/08/2001/13/2025 US, obste tric, 2nd trime ster No observ ation record ed. adrian Dickinson Engineering Inspector [address] [place] [address] , [place], [address], 01/13/2025 14:46:14 01/08/2001/13/2025 US, obste tric, trans vagin al No observ ation record ed. adrian Dickinson Engineering Inspector [address] [place] [address] , [place], [address], 01/13/2025 14:48:30 01/15/2001/13/2025 US, obste tric, trans vagin al No observ ation record ed. KEEGAN Dickinson Engineering Inspector [address] [place] [address] , [place], [address], 01/14/2025 12:13:05 01/15/2001/13/2025 , obste tric, 2nd trime ster No observ ation record ed. KEEGAN Dickinson Engineering Inspector [address] [place] [address] , [place], [address], 01/14/2025 12:13:05 Result Notes None recorded. Problems Name Problem SNOMED Code Status Onset Date Resolution Date Notes Provider Name and Address Organization Details Recorded Time Teenage pregnanc y [id number] Completed 18-year- old mom/nakia or [facility], 20-year- old FOB; good family support Alireza Zhang, RN [address], [place], [address], [place] - [facility] 9 11:26:28 Supervis ion of high risk pregnanc y for primigra aldair age 15 years or younger Completed 201808/23/2018 Salome Yun APRN [address], [place], [address], [place] - [facility] 9 13:01:15 Pregnanc y [id number] Completed 201803/06/2025 Alireza Zhang RN [address], [place], [address], [place] - [facility] 5 10:43:58 Antenata l screenin g Completed 2018 [x ] FTS - declined [ x] AFP-decl ined Genetic testing not covered by [employer] 08-27-18 AGA, sl RON Alireza Zhang RN [address], [place], [address], [place] - [facility] 9 11:26:28 Active or passive immuniza tion Completed 2018 - Flu vaccine [ x] Tdap 01/14/19 Alireza Zhang RN [address], [place], [address], [place] [facility] 9 11:26:28 Supervis ion of high risk pregnanc y for primigra aldair age 15 years or younger done 3813013119 0956990 Completed 201803/27/2019 Susan Stears null, [place] - [facility] 9 14:11:15 Supervis ion of high risk pregnanc y for primigra aldair age 15 years or younger done 1016015734 1685789 Completed 2018 Alireza Zhang RN [address], [place], [address], [place] [facility] 9 11:26:28 Urinary tract infectio n in pregnanc y 592899803 Completed 201803/27/2019 Asymptom atic - [ x] ADELSO @ 16 wks Coagulas e Negaive Staphylo coccus species Rx Macrobid [x] ADELSO collecte d 11/05 no growth Susan Stears null[place] [facility] 9 14:11:21 Urinary tract infectio n in pregnanc y 791842691 Completed 2018 Asymptom atic - [ x] AEDLSO @ 16 wks Coagulas e Negaive Staphylo coccus species Rx Macrobid [x] ADELSO collecte d 11/05 no growth Alireza Zhang RN [address], [place], [address], [place] [facility] 9 11:26:28 Genital Molluscu m contagio sum 336748805 Completed 201811/07/2023 Noted on OB PE Jessica DavidMARTA duran [address], [place], [address], [place] [facility] 4 11:16:32 Genital Molluscu m contagio sum 183227978 Completed 2018 Noted on OB PE Alireza Zhang RN [address], [place], [address], [place] [facility] 9 11:26:28 Blood group O Rh(D) negative 490337238 Completed 2018 rhogam given 28 wk, neg ab screen Alireza Zhang RN [address], [place], [address] [place] [address], [facility] - [facility] 9 11:26:28 Anemia of pregnanc y 12609503 Completed 2018 Hgb 10.5 @ 28wk Alireza Zhang RN [address], [place], [address], [facility] - [facility] 9 11:26:28 Family history of malignan t neoplasm of breast in first degree relative 383086168 Active 2023 Priyanka Hilario APRN [address], [place], [address], [place] [facility] 5 15:22:39 [facility] 25-29 [facility] 114[facility] Active 2024 BMI: 29.6 starting wgt: 167 HgbA1c: 5.3 Priyanka Hilario APRN [address], [place], [address], [place] [facility] 5 22:43:26 Antenata l screenin g Completed 2024 Mat21- NEG, MALE; AFP- 12/16/24 Negative ; CF/SMA- declined 11/17 Alireza Zhang RN [address], [place], [address], [facility] - [facility] 5 10:50:38 Body mass index 25-29 - overweig 668718116 Completed 2024 BMI: 29.6 starting wgt: 167 HgbA1c: 5.3 Priyanka Hilario, BLUEPRINTER [address], [place], [address], [place] [facility] 5 22:43:26 Contrace ptive hugo hinton Completed 2024 None, same sex relation ship Priyanka Hilario, BLUEPRINTER [address], [place], [address], [place] [facility] 5 15:20:52 Immuniza tion due 223549693 Completed 2024 Covid- x2 Tdap- Flu- declined 10/09/24 Priyanka Hilario, BLUEPRINTER [address], [place], [address], [place] [facility] 15:21:18 Past pregnanc y history of prematur e delivery 139695530 Completed 2024 2019, delivery at 34.3wks [ ] CL at 16wks Naya AlexisJono waterman, DO [address], [place], [address], [place] [facility] 5 11:19:37 Past pregnanc y history of prematur e delivery 296361636 Active 2024 2019, [place] delivery at 34.3wks [ ] CL at 16wks Naya AlexisJono waterman, DO [address], [place], [address], [place] [facility] 5 11:19:37 Blood group O Rh(D) negative 526635742 Completed 2024 [ ]28wk Rhogam and AB screen Priyanka Hilario, BLUEPRINTER [address], [place], [address], [place] [facility] 5 15:22:34 Blood group O Rh(D) negative 353279908 Active 2024 [ ]28wk Rhogam and AB screen Priyanka Hilario, BLUEPRINTER [address], [place], [address], [place] [facility] 5 15:22:34 Overweig ht 184140750 Active 2024 Priyanka Hilario BLUEPRINTER [address], [place], [address], [place] [facility] 5 20:56:48 Gestatio n period, 7 weeks 39114251 Active 2024 Whit [place] [facility] 5 09:46:52 Gestatio n period, 8 weeks 48988640 Active 2024 Whit [place] [facility] 5 09:48:28 High risk pregnanc y 49989507 Completed 2024 h/o PTD 34wks Naya Alexis-Ort iz, DO [address], [place], [address], [place] [facility] 5 14:27:18 Microsco pic hematuri a 042014951 Active 2024 Whit [place] [facility] 14:55:23 Nausea and vomiting in pregnanc y Completed 2024 Naya Alexis-Ort iz, DO [address], [place], [place], [address], [place] [facility] 5 14:56:58 Gestatio n period, 12 weeks 97874720 Active 2024 Whit [place] [facility] 5 10:22:36 Malodoro us urine 724229504 Active 2024 Naya Alexis-Ort iz, DO [address], [place], [address], [place] [facility] 5 11:21:40 Bacteria l vaginosi s 426945144 Active 2024 Naya Alexis-Ort iz, DO [address], [place], [address], [place] [facility] 5 17:50:41 Gestatio n period, 16 weeks 52864732 Active 2024 Whit [place] [facility] 5 14:35:34 Gestatio n period, 18 weeks 69492288 Active 2024 Whit [place] [facility] 10:19:34 Gestatio n period, 20 weeks 94132566 Active 2024 Whit eric, [place] - [facility] 09:22:44 Overweig ht in adulthoo d with body mass index of 25 or more but less than 30 202157636 Active 2024 Whit eric, [place] - [facility] 09:23:21 Breech presenta tion 5723838 Completed 2024 Noted at 20wk SELENA [ ] 36wk [place] Naya waterman DO [address], [place], [address], [place] [facility] 14:39:17 Problem Notes [...] completed Rubina Andres MD [address], [place], [address], [place] [facility] 04/10/2019 17:54:00 04/10/20 [...] Not Available Not Available Not Available HyperRHO 1,500 unit (300 mcg) intramuscul ar syringe [...] Organization Details Last Updated DateTime 160.02 cm 28.3 kg/m2 96806.7 8 g 0 102 /min 100/60 mm[Hg] Kylah Daly [place] - [facility] 5 10:51:45 Date Recorded Body height Body mass index (BMI) Body weight Pain severity - 0-10 verbal numeric rating [Score] - Reported Heart rate Systolic And Diastolic Provider Name and Address Organization Details Last Updated DateTime 160.02 cm 27.9 kg/m2 50595.1 6 g 0 100 /min 112/62 mm[Hg] Kylah Daly [place] - [facility] 11:33:17 Date Recorded Body height Body mass index (BMI) Body weight Pain severity - 0-10 verbal numeric rating [Score] - Reported Systolic And Diastolic Provider Name and Address Organization Details Last Updated DateTime 12/29/2024 160.02 cm 27.7 kg/m2 85030.13 g 0 100/58 mm[Hg] Whit Daly [facility] 5 11:53:46 Date Recorded Body height Pain severity - 0-10 verbal numeric rating [Score] - Reported Body mass index (BMI) Body weight Systolic And Diastolic Provider Name and Address Organization Details Last Updated DateTime 01/13/2025 160.02 cm 0 27.8 kg/m2 25252 g 98/60 mm[Hg] Whit Daly [facility] 14:36:52 Date Recorded Body height Body mass index (BMI) Body weight Systolic And Diastolic Provider Name and Address Organization Details Last Updated DateTime 02/10/2025 160.02 cm 28 kg/m2 77262.59 g 100/66 mm[Hg] Brittani Siria [place] - [facility] 02/10/2025 10:58:08 Social History Question Answer Notes LastModified by Organizat ion Details LastModified Time Tobacco Smoking Status Never Smoker Radha eric [place] - [facility] 08/19/2018 09:23:15 Do You Have An Advance Directive? No [email or web address] Information not available 08/19/2018 If You Are , What Was Your Level Of Alcohol Consumption Prior To ? None [email or web address] Information not available 08/19/2018 Is Anesthesia Consult Planned? No [email or web address] Information not available 08/19/2018 Plan No Information no t available 08/19/2018 Are You Blind Or Do You Have Difficulty Seeing? No [email or web address] Information not available 08/19/2018 Is Blood Transfusion Acceptable In An Emergency? Yes [email or web address] Information not available 08/19/2018 Breast Feeding? Yes [email or web address] Informati on not available 08/19/2018 What Is Your Level Of Caffeine Consumption? Moderate [email or web address] Information not available 08/19/2018 Live With Cats/exposure To Cat Litter No [email or web address] Information not available 08/19/2018 How Much Tobacco Do You Chew? None [email or web address] Information not available 08/19/2018 In The 14 Days Before Symptom Onset, Have You Had Close Contact With A Laboratory-confir med COVID-19 While That Case Was Ill? No [email or web address] Information not available 11/07/2023 In The 14 Days Before Symptom Onset, Have You Had Close Contact With A Person Who Is Under Investigation For COVID-19 While That Person Was Ill? No [email or web address] Information not available 11/07/2023 Have You Been To An Area Known To Be High Risk For COVID-19? No Information not available 11/07/2023 Are You Deaf Or Do You Have Serious Difficulty Hearing? No [email or web address] Information not available 08/19/2018 Diabetes No Information no t available 08/19/2018 What Type Of Diet Are You Following? REGULAR [email or web address] Information not available 08/19/2018 Which Illicit Or Recreational Drugs Have You Used? None Information not available 08/19/2018 Have You Processed Blood Or Body Fluids From An Ebola Virus Disease Patient Without Appropriate PPE? No [email or web address] Information not available 11/07/2023 Do You Reside In Or Have You Traveled To An Area Where Ebola Virus Transmission Is Active? No [email or web address] Information not available 11/07/2023 Education 12 Information no t available 11/07/2023 What Is The Highest Grade Or Level Of School You Have Completed Or The Highest Degree You Have Received? FR50985-0 [email or web address] Information not available 11/07/2023 How Many Days Of Moderate To Strenuous Exercise, Like A Brisk Walk, Did You Do In The Last 7 Days? 1 [email or web address] Information not available 08/19/2018 On Those Days That You Engage In Moderate To Strenuous Exercise, How Many Minutes, On Average, Do You Exercise? 1 [email or web address] Information not available 08/19/2018 Have There Been Any Changes To Your Family Or Social Situation? No [email or web address] Information no t available 08/19/2018 How Hard Is It For You To Pay For The Very Basics Like Food, Housing, Medical Care, And Heating? Not Very Hard [email or web address] Information not available 11/07/2023 What Is The Fluoride Status Of Your Home? Fluoridated [email or web address] Information not available 11/07/2023 Frequent Air Travel No [email or web address] Information not available 08/19/2018 Have You Recently Or Are You Planning To Travel To An Area With Zika Virus? No [email or web address] Information not available 11/07/2023 High Blood Pressure No [email or web address] Information not available 08/19/2018 High Cholesterol No [email or web address] Informat ion not available 08/19/2018 High Number Of Sexual Partners No [email or web address] Information not available 11/07/2023 Illicit Drugs Pre- None [email or web address] Information not available 08/19/2018 Live Alone Or With Others? With Others Parents [email or web address] Information not available 08/19/2018 Marital Status Single [email or web address] Informatio n not available 11/07/2023 Do You Have A Medical Power Of Car Seat Upholsterer? No [email or web address] Information not available 11/07/2023 What Was The Date Of Your Most Recent Tobacco Screening? 12/16/2024 [email or web address] Information not available 12/16/2024 How Many Children Do You Have? 1 [email or web address] Information not available 11/07/2023 Do You Have Any Pets? No [email or web address] Information not available 08/19/2018 What Is Your Relationship Status? Single [email or web address] Information not available 11/07/2023 Seat Belts Used Routinely Yes [email or web address] Information not available 08/19/2018 Are You Sexually Active? Yes [email or web address] Information not available 10/09/2024 Do You Have Smoke And Carbon Monoxide Detectors In Your Home? Yes [email or web address] Information not available 08/19/2018 Are You Passively Exposed To Smoke? Yes [email or web address] Information no t available 08/19/2018 How Much Tobacco Do You Smoke? No [email or web address] Information not available 08/19/2018 Smoking Pre- No [email or web address] Information not available 08/19/2018 General Stress Level Low [email or web address] Information not available 08/19/2018 Do You Use Sunscreen Routinely? No [email or web address] Information not available 08/19/2018 Supplements None [email or web address] Information n ot available 11/07/2023 Has Tobacco Cessation Counseling Been Provided? No [email or web address] Information not available 11/07/2023 How Many Years Have You Smoked Tobacco? 0 [email or web address] Information not available 08/19/2018 Do You Have Difficulty Walking Or Climbing Stairs? No [email or web address] Information not available 08/19/2018 Do You Have Symptoms Associated With Zika Virus (fever, Rash, Joint Pain, Or Conjunctivitis)? No ubxsbkj220 Information not available 08/19/2018 Have You Recently (within The Last 12 Weeks, Or During A Current ) Traveled To Or Lived In A Zika-affected Area? No [email or web address] Information not available 08/19/2018 What Contraceptive Method Was Reported At Start Of This Visit? None [email or web address] Information not available 10/09/2024 What Contraceptive Method Was Reported At End Of This Visit? None [email or web address] Information not available 11/14/2023 Do You Want To Talk About Contraception Or Prevention During Your Visit Today? No - This Question Does Not Apply To Me/I Prefer Not To Answer [email or web address] Information not available 10/09/2024 Do You Have Any Future Plans To Get ? I'm OK Either Way [email or web address] Information not available 10/09/2024 What Is Your Reason For Having No Contraceptive Method At Start Of This Visit? Other [email or web address] Information not available 10/09/2024 What Is Your Reason For Having No Contraceptive Method At End Of This Visit? Other Information not available 10/09/2024 Sex: Female Functional Status Question Answer Note LastModified by Organizat ion Details LastModified Time Do you use any illicit or recreational drugs? No [email or web address] Information not available 11/07/2023 Do you or have you ever used any other forms of tobacco or nicotine? No uvzqbhe751 Information not available 11/07/2023 What is your level of alcohol consumption? None [email or web address] Information not available 11/07/2023 Are you currently employed? Yes [email or web address] Information not available 11/07/2023 Do you have transportation difficulties? No Information not available 11/07/2023 What is your status? [email or web address] Information no t available 10/09/2024 Are you able to walk independently without assistance or assistive devices? YESWOREST Information not available 11/07/2023 Do you have difficulty doing errands alone? No [email or web address] Information not available 08/19/2018 Are you able to care for yourself independently? 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 No [email or web address] Information not available 08/19/2018 What is your exercise level? None [email or web address] Information not available 08/19/2018 Mental Status Question Answer Note LastModified by Organizat ion Details LastModified Time Do you feel stressed (tense, restless, nervous, or anxious, or unable to sleep at night)? [id number] [email or web address] Information not available 11/07/2023 Do you have difficulty concentrating, remembering or making decisions? No [email or web address] Information no t available 08/19/2018 Family History Relationship Description Onset Age of this Age Resolved Age Notes LastModified by Organization Details LastModified Time Brother Multiple epiphyseal dysplasia [email or web address] Not available 2024 14:48:00 Brother Seizure [email or web address] Not available 10/09/2024 14:48:00 Maternal Grandmother Diabetes mellitus [email or web address] Not available 08/19 09:21:45 Maternal Grandmother Heart disease [email or web address] Not available 08/19 09:22:11 Maternal Grandmother Myocardial infarction 53 Not available 10/09 14:48:00 Maternal Grandmother Malignant neoplasm of breast 30 53 [email or web address] Not available 2023 10:27:05 Mother Malignant neoplasm of breast 22 [email or web address] Not available 2023 10:26:03 Maternal Aunt Malignant neoplasm of breast 60 from lung cancer [email or web address] Not available 11/07/2023 10:28:08 Maternal Aunt Malignant neoplasm of breast 50 deceas ed d/t non-ca ncerou s causes Not available 11/07/2023 10:28:11 Maternal Aunt Malignant neoplasm of breast [email or web address] Not available 2023 10:26:22 Maternal Aunt Malignant neoplasm of lung 60 Not available 2023 10:28:01 Medical History Condition Response Pancreatitis N Other N Atrial Fibrillation N congenital heart disease N Blood Diseases N Hyperthyroidism N Rheumatoid arthritis N Blood Transfusion N Erectile Dysfunction N amputation N Skin [...] colitis N Cerebrovascular Disease N Depression N Guillain-[place] N Sleep Apnea N Aneurysm N Bronchitis [...] 15:30:50 pneumococcal, unspecified formulation 3 completed Radha [place] [facility] 08/23/2018 15:31:09 pneumococcal, unspecified formulation 3 completed Rad[place] [facility] 08/23/2018 15:31:20 pneumococcal, [...] [facility] 11/14/2023 14:17:14 MMR 4 completed [place] [facility] 08/23/2018 15:33:01 MMR 7 completed Rad[place] [facility] 08/23/2018 15:33:08 varicella 4 completed Radha [place] [facility] 08/23/2018 15:33:24 varicella 7 completed Rad[place] [facility] 08/23/2018 15:33:37 meningococcal, unknown serogroups 4 completed Rad[place] [facility] 08/23/2018 15:34:31 Tdap 4 completed Rad[place] [facility] 08/23/2018 15:34:57 HPV, unspecified formulation 4 completed Naya Croft [place] [facility] 11/14/2023 14:17:14 Tdap 9 completed Not Available [facility] 07/26/2019 03:55:49 Influenza, split virus, quadrivalent, preservative [...] ICD10 Code Diagnosis IMO Codes Diagnosis Note [id number] MARTA Brown GRAVEL MACHINE OPERATOR [address] [place] [address] IM[place] Diehl [id number] 7 08/19/2018 08:59:20 08/19/2018 11:02:59 Urine test positive 327069018 Z32.01 Supervisio n of high risk for primigravida age 15 years or younger done 5127076879 4255657 O09.619 Active or passive immunization 627189391 Z23 [id number] Getachew Suggs MD [place] [employer] M[employer] OPERATOR [address] [place] [address] [place] Diehl [id number] 7 08/27/2018 15:03:36 08/27/2018 16:11:06 Supervision of high risk for primigravida age 15 years or younger done 5929227643 6171886 O09.619 Gestation period, 10 weeks 49091779 Z3A.10 [id number] DonaMARTA Alcala G[employer]VEL MACHINE OPERATOR [address] [place] [address] IM[place] Diehl [id number] 7 09/16/2018 14:02:29 09/16/2018 14:50:08 Infection screening 515611249 Z11.3 Z11.8 Gestation period, 13 weeks 80057468 Z3A.13 Chronic constipation 236 396239 K59.09 Supervisio n of high risk for primigravida age 15 years or younger done 6569976045 7594025 O09.619 Genital Mo lluscum contagiosum 063758253 B08.1 Normal bod y mass index 47057065 Z68.52 [id number] Gely Huerta, MS, RD, LD [place] [employer] OPER[employer] [address] [place] [address] IM[place] Diehl [id number] 7 10/15/2018 13:06:08 10/15/2018 14:13:09 64134580 Z33.1 [id number] Ebony Baker CNM [place] [employer] OPER[employer] [address] [place] [address] IM[place] Diehl [id number] 7 10/15/2018 13:06:08 10/15/2018 14:13:10 Supervision of high risk for primigravida age 15 years or younger done 9217048009 4140364 O09.619 screening 2437 82315 Z36.9 Gestation period, 17 weeks 73411046 Z3A.17 Recurrent urinary tract infection 413497898 N39.0 High risk 4720 0007 O09.92 [id number] Rubina Andres MD [place] [employer]PER[employer] [address] [place] [address] [place] [id number] 7 11/05/2018 10:37:03 11/05/2018 11:31:18 Supervision of high risk for primigravida age 15 years or younger done 9130981289 2112483 O09.619 Genital Mo lluscum contagiosum 379782113 B08.1 Gestation period, 20 weeks 51941250 Z3A.20 screening 2437 15201 Z36.9 Urinary tr act infection in 490001434 O23.42 [id number] Ebony Baker CNM [place] [employer] OPER[employer] [address] [place] [address] [place] [address] 7 12/04/2018 15:36:45 12/04/2018 16:09:46 Supervision of high risk for primigravida age 15 years or younger done 9896491961 8244230 O09.619 Genital Mo lluscum contagiosum 280096800 B08.1 Gestation period, 24 weeks 485864397 Z3A.24 screening 2437 98991 Z36.9 High risk 4720 0007 O09.92 [id number] MARTA Stokes GRAVEL MACHINE OPERATOR [address] [place] [address] IM[place] Diehl [id number] 7 12/30/2018 08:27:12 12/30/2018 10:00:10 Supervision of high risk for primigravida age 15 years or younger done 5731208291 0473551 O09.619 screening 2437 70685 Z36.9 Gestation period, 28 weeks 55048012 Z3A.28 Blood grou p O Rh(D) negative 931233578 Z67.41 [id number] Ira Munguia MD [place] [employer] M[employer]INE OPERATOR [address] [place] [address] IM[place] Diehl [id number] 7 01/14/2019 13:47:25 01/14/2019 14:34:15 Routine care 940306421 Z34.03 Gestation period, 30 weeks 68747801 Z3A.30 Active or passive immunization 918012598 Z23 tdap [id number] MD Brendon Cortez G[employer] MACHINE OPERATOR [address] [place] [address] IM[place] Diehl [id number] 7 01/28/2019 16:03:26 01/28/2019 16:23:33 Anemia of 50782709 O99.019 Gestation period, 32 weeks 2233610 Z3A.32 High risk 4720 0007 O09.93 [id number] MD Brendon Cortez G[employer]VEL MACHINE OPERATOR [address] [place] [address] IMAN Diehl [id number] 7 03/27/2019 13:51:27 03/27/2019 14:53:23 state 69919572 Z39.2 Contracept ion care management 547768957 Z30.9 depression 58 152603 F53.0 [id number] MD Brendon Cortez G[employer]VEL MACHINE OPERATOR [address] [place] [address] IMAN Diehl [id number] 7 04/10/2019 14:08:53 04/10/2019 16:00:02 Insertion of intrauterine contraceptive device 59128341 Z30.502 [id number] MD Brendon Cortez G[employer]VEL MACHINE OPERATOR [address] [place] [address] IMAN Diehl [id number] 7 04/25/2019 13:24:43 04/25/2019 13:58:22 depression 27171946 F53.0 Fatigue 35985762 R53.83 [id number] [facility] [address] [place] [address] 04/25/2019 14:06:33 04/25/2019 14:56:45 [id number] DO Brendon Bailon G[employer]VEL MACHINE OPERATOR [address] [place] [address] IMAN Diehl [id number] 7 05/22/2019 15:04:10 05/22/2019 15:36:39 Contraception care management 248316101 Z30.9 depression 58 573882 F53.0 Due to Prozac made her worse - made her mean . Stop taking Prozac, to start Zoloft. [id number] DO Brendon Bailon G[employer]VEL MACHINE OPERATOR [address] [place] [address] IMAN Diehl [id number] 7 06/19/2019 11:35:13 06/19/2019 12:15:06 depression 07517020 F53.0 Zoloft is working well. [id number] MARTA Stokes G[employer]VEL MACHINE OPERATOR [address] [place] [address] IMAN Diehl [id number] 7 11/07/2023 09:34:18 11/07/2023 10:39:00 Routine gynecologic examination done 7027372585 9101 Z01.419 Depression screening 171 503132 Z13.31 PHQ-9 completed today. Diet education 84711235 Z71.3 Counseling 861727494 Z71 .82 Exercise counselschuyler wylie Patient encouraged to exercise 30 minutes 5 days a week. Examinatio n of blood pressure 056125618 Z01.30 Hypertensi on screening 101947656 Z13.6 Screening for malignant neoplasm of cervix 820490599 Z12.4 Contracept ion care management 428277658 Z30.[address] Family his tory of malignant neoplasm of breast in first degree relative 846728418 Z80.3 Body mass index 25-29 - overweight 927727630 Z68.28 Overweight 769830981 E66 .3 [id number] MARTA Stokes GRAVEL MACHINE OPERATOR [address] [place] [address] IMAN Diehl [id number] 7 11/14/2023 14:03:55 11/14/2023 14:51:26 Removal of intrauterine contraceptive device done 3784942934 17053 Z30.640 [id number] MARTA Adam G[employer]VEL MACHINE OPERATOR [address] [place] [address] IMAN Diehl [id number] 7 10/09/2024 14:47:21 10/09/2024 15:45:35 Urine test positive 203797786 Z32.01 care status 24 0109258 Z34.90 Z34.81 0656997980 Gestation period, 7 weeks 79856751 Z3A.01 96117683 Blood grou p O Rh(D) negative 748675792 Z67.41 189813 Body mass index 25-29 - overweight 224905307 Z68.28 Past pregn donis history of premature delivery 452884511 Z87.51 290703 7181 delivery 34.3wks Overweight 630872608 E66 .3 screening 2437 68835 Z36.9 [id number] DO Angie [place] GRAVEL MACHINE OPERATOR [address] [place] [address] IMAN Diehl [id number] 7 10/17/2024 14:02:03 10/17/2024 15:08:27 Blood group O Rh(D) negative 363563029 Z67.41 [id number] O-Rh at 28 weeks Body mass index 25-29 - overweight 515143380 Z68.28 Overweight 112557562 E66 .3 Past pregn donis history of premature delivery 996245193 Z87.51 286546 4274 delivery 34.3wks screening 2437 94907 Z36.9 3079873 Gestation period, 8 weeks 67235897 Z3A.08 6833037 High risk 4720 0007 O09.91 99554584 Microscopic hematuria 19 7075633 R31.29 961003 Nausea and vomiting in 6527015021 O21.9 626739 [id number] NAYA LEWIS DO [place] G[employer]VEL MACHINE OPERATOR [address] [place] [address] IMAN Diehl [phone] 7 11/17/2024 10:33:44 11/17/2024 11:27:25 High risk 19089150 O09.91 68624358 h/o PTDRh NEG Past pregn donis history of premature delivery 291668027 Z87.51 774140 1974 delivery 34.3wks screening 2437 04832 Z36.9 6047177 Blood grou p O Rh(D) negative 247324899 Z67.41 049880 O-Rh at 28 weeks Body mass index 25-29 - overweight 134634600 Z68.28 Overweight 267339360 E66 .3 Gestation period, 12 weeks 94257963 Z3A.12 3647637 Infection screening 2437 20926 Z11.3 Z11.8 Screening for malignant neoplasm of cervix 232591597 Z12.4 Z11.3 Malodorous urine 4243616 01 R82.90 1240814 [id number] DO Angie [place] GRAVEL MACHINE OPERATOR [address] [place] [address] IMAN Diehl [phone] 7 12/16/2024 11:11:59 12/16/2024 11:48:21 High risk 12003664 O09.91 39568222 h/o PTDRh NEG Past pregn donis history of premature delivery 722213732 Z87.51 460936 1102 delivery 34.3wks[ ] CL today nml screening 2437 26140 Z36.9 3716099 Blood grou p O Rh(D) negative 997377454 Z67.41 516466 O-Rh at 28 weeks Body mass index 25-29 - overweight 997903178 Z68.28 Overweight 267852946 E66 .3 Gestation period, 16 weeks 21708728 Z3A.16 3051243 [id number] NAYA LEWIS DO [place] GRAVEL MACHINE OPERATOR [address] [place] [address] IMAN Diehl 74346-837 7 12/29/2024 11:45:30 12/29/2024 12:08:21 High risk 71403509 O09.91 42018928 h/o PTDRh NEG Past pregn donis history of premature delivery 992266086 Z87.51 491436 5488 delivery 34.4its75m k: CL nml screening 2437 57553 Z36.9 6418415 Blood grou p O Rh(D) negative 389742535 Z67.41 082918 O-Rh at 28 weeks Body mass index 25-29 - overweight 773795554 Z68.28 Overweight 754843053 E66 .3 Gestation period, 18 weeks 79439392 Z3A.18 2363849 [id number] DO Angie [place] GRAVEL MACHINE OPERATOR [address] [place] [address] IMAN Diehl [phone] 7 01/13/2025 13:42:45 01/13/2025 14:49:09 High risk 99990704 O09.91 93551246 h/o PTDRh NEG Past pregn donis history of premature delivery 711166599 Z87.51 611408 9786 delivery 34.4jpg81x k: CL nml screening 2437 48003 Z36.9 2551722 Blood grou p O Rh(D) negative 685147991 Z67.41 668391 O-Rh at 28 weeks Gestation period, 20 weeks 77808760 Z3A.20 6448873 Overweight in adulthood with body mass index of 25 or more but less than 30 241156923 E66.3 Z68.25 2572006849 [id number] DO Brendon Bailon GRAVEL MACHINE OPERATOR [address] [facility] IMAN Diehl 40356-893 7 02/10/2025 10:48:57 02/10/2025 11:04:02 Past history of premature delivery 540508225 Z87.51 563312 1533 delivery 34.4zkz65i k: CL nml Blood grou p O Rh(D) negative 542553356 Z67.41 772612 O-Rh at 28 weeks Overweight in adulthood with body mass index of 25 or more but less than 30 928007029 E66.3 Z68.25 2012397090 Gestation period, 24 weeks 550709161 Z3A.24 0696781 High risk 4720 0007 O09.90 70074676 Health Concerns Section Related Observation LastModified by Organization Detai ls LastModified Time None Recorded Concern Status LastModified by Organization Details LastModified Time None Recorded Advance Directives Directive N: Payers Insurance Date Sequence Insurance Name Policy Number Policy Loera Covered Member ID Loera Member ID Guarantor Name 10/09/2024 1 [employer] (MEDICAID REPLACEMENT - HMO) [id number] Gentri Sarah [id number] Gentri Sarah 10/09/2024 1 [employer]ETNA [facility] (MEDICAID HMO) Gentri Sarah [id number] Gentri Sarah 02/23/2025 1 [facility] Gentri Sarah [id number] Gentri Sarah 02/07/2025 MEDICAID-ND - [facility] [employer]ILL[employer] (MEDICAID) MEDICAID Gentri Sarah [id number] Gentri Sarah Notes Date Note Type Note Provider Name and Address Organization Details Recorded Time 11/17/2024 text/html ROS as noted in the HPI OB PE Naya Ribeiro DO [address], [place], [address], [place] [facility] 11/17/2024 13:04:11 12/16/2024 text/html ROS as noted in the HPI u/s, ob visit Naya Ribeiro, DO [address], [place], [address], [place] - [facility] 12/16/2024 11:44:05 12/29/2024 text/html ROS as noted in the HPI OB visit Naya Ribeiro, DO [address], [place], [address], [place] - [facility] 12/29/2024 12:08:41 01/13/2025 text/html ROS as noted in the HPI US, OB visit Naya Ribeiro, DO [address], [place], [address], [place] - [facility] 01/13/2025 14:49:13 02/10/2025 text/html ob visit Sally Kirby, DO [address], [place], [address], [place] - [facility] 02/10/2025 11:05:20 OBGyn Episode Ob Episode Information Episode Created Date Number of Fetuses Patient Bloodtype Patient rh Status Prepregnancy Weight lbs Domestic Partner Domestic Partner Phone Father Name Conductor Pullman Status 10/10/19 25 1 O Negative 167 Nya, 20 [id number] [phone] unsure CLOSED Fetus Data First Name Last Name Admitted to NICU Weight (g) Sex Living Outcome Pediatric Complications Fetus ID Race Codes Race Delivery Type [id number] Problems Problem Notes [facility]- [facility] Well, assisted living out of [place] [...] Resolution Snomed Code Not e screening 10/09/2024 [id number] Mat21- NEG, MALE; AFP- 12/16/24 Negative; CF/SMA- declined 11/17 Body mass index 25-29 - overweight 10/09/2024 190258700 BMI: 29.6 starting wgt: 798XhjR6d: 5.3 Nausea and vomiting in 10/17/2024 0793504998 Immunization due 10/09/2024 235353966 Co vid- g5Gdnk-Jhf- declined 10/09/24 Contraceptive counseling 10/09/2024 90115582706046 None, same se x relationship High risk 10/17/2024 37315036 h/o PTD 34wks Blood group O Rh(D) negative 10/09/2024 629878998 [ ]28wk Rhogam and AB screen Past history of premature delivery 10/09/2024 [id number] [facility], delive ry at 34.3wks[ ] CL at 16wks Breech presentation 01/13/2025 3331199 Noted at 20wk SELENA[ ] 36wk US [...] Gestation 0 lshower 10/31/2024 05/30/20 25 0 Pre- Flowsheet Flowsheet Date 10/09/2024 Morales Score Blood Edema Fundus Height Fundus Units Glucose Ketones Leukocytes Nitrite Labor Signs Protein Cervic Dilation Cervic Effacement Cervic Station neg none none negative none Negative none neg Type Weight in lbs Pre/Post Dialysis Refused With clothes 167.016933350970 BP Diastolic BP Location Tested BP Systolic [...] in lbs Pre/Post Dialysis Refused With clothes 165.913946606293 BP Diastolic BP Location Tested BP Systolic [...] in lbs Pre/Post Dialysis Refused With clothes 160.334232472870 BP Diastolic BP Location Tested BP Systolic [...] pt needs CL at 16wks. RTC at 16wk//Vidible Flowsheet Date 12/16/2024 Morales Score Blood Edema Fundus Height Fundus Units Glucose Ketones Leukocytes Nitrite Labor Signs Protein Cervic Dilation Cervic Effacement Cervic Station neg none none large none Negative none neg Type Weight in lbs Pre/Post Dialysis Refused With clothes 157.309374469920 BP Diastolic BP Location Tested BP Systolic [...] discussed,nml. RTC 4 weeks for SELENA. AFP collected.//OVIAO Flowsheet Date 12/29/2024 Morales Score Blood Edema Fundus Height Fundus Units Glucose Ketones Leukocytes Nitrite Labor Signs Protein Cervic Dilation Cervic Effacement Cervic Station none none Type Weight in lbs Pre/Post Dialysis Refused With clothes 156.474353342541 BP Diastolic BP Location Tested BP Systolic [...] shortness of breath. RTC 2 weeks for SELENA//OVIAO Flowsheet Date 01/13/2025 Morales Score Blood Edema Fundus Height Fundus Units Glucose Ketones Leukocytes Nitrite Labor Signs Protein Cervic Dilation Cervic Effacement Cervic Station neg none none trace 1+ Negative none neg Type Weight in lbs Pre/Post Dialysis Refused With clothes 157.197646416402 BP Diastolic BP Location Tested BP Systolic BP Type 60 L arm 98 sitting Fetus Heart Rate Present A 151 Present Fetus Movement A Yes Comments no vb. no lof. //akm//Pt has no concerns today. Admits movement. Declines loss of fluid, vaginal bleeding, changes in vaginal discharge, contractions, LE swelling, shortness of breath. Normal SELENA. F/up 4 weeks//JMO Flowsheet Date 02/10/2025 Morales Score Blood Edema Fundus Height Fundus Units Glucose Ketones Leukocytes Nitrite Labor Signs Protein Cervic Dilation Cervic Effacement Cervic Station neg none 24 cm none negative none Negative none neg Type Weight in lbs Pre/Post Dialysis Refused With clothes 158.830622837874 BP Diastolic BP Location Tested BP Systolic [...] At Estimated Date of Delivery false Thalassemia (Burundian, Croatian, Mediterranean, Or Background): MCV < 80 false Neural Tube Defect (Meningom yelocele, Spina Bifida, Or Anencephaly) false Congenital Heart Defect false Down Syndrome false Nilson-Sachs (eg, Sikh, Cajun , Citizen Of [place]) false Jaycee Disease false Sickle Cell Disease Or Trait () false Hemophilia Or Other Blood Disorders false Muscular Dystrophy false Cystic Fibrosis false Omer's Chorea false Mental Retardation/Autism false If Yes, [...] [email or web address] 10/09/2024 Nutrition aduke210/09/2024 Weight gain counseling 15-# aduke 24 10/09/2024 Intimate Partner Violence ad uke210/09/2024 Unstable Housing aduke210/09/2024 Use of any medicatio ns (including supplements, vitamins, herbs, or OTC drugs) ade210/09/2024 Avoidance of saunas or hot tubs discussed ade210/09/2024 Indications for ultrasonography aduke210/09/2024 Comminucation Barriers aduke 10/09/2024 Anticipated course of care ade210/09/2024 Toxoplasmosis precautions (cats/raw meat) ade210/09/2024 Sexual activity aduke210/09/2024 Exercise ade210/09/2024 Tobacco/smoking cess ation counseling (ask, advise, assess, assist, and arrange) non smoker e210/09/2024 Barriers to Care ade210/09/2024 Environmental/work hazards a duke10/09/2024 Depression/Anxiety ( should be performed at least once during period) ade210/09/2024 WIC/Hands Referral e210/09/2024 Nutrition counseling ; special diet; dietary precautions (mercury, listeriosis) ade210/09/2024 Dental Care / Refer to Dentist ade210/09/2024 Seat belt use ade210/09/2024 Childbirth classes/hospital facilities ade210/09/2024 plans to pump ad10/09/2024 Screening for aneuploidy [...] Domestic Partner Domestic Partner Phone Father Name Conductor Pullman Status 08/19/19 19 1 O Negative bf, Bradley Arzate, 18, white [facility] CLOSED Fetus Data First Name Last Name Admitted to NICU Weight (g) Sex Living Outcome Pediatric Complications Fetus ID Race Codes Race Delivery Type M true Prematur e 9850 Vaginal Problems Problem Notes - Epidural, Circ, [place]ena/OK didi, [facility] for Dr. BeasonDr. Suggs delivered pt!08-27-18 US AGA, sl SCH11/05/2018: Anatomy US complete & normal, BOY!//KRA Problem Name Start Date End Date Resolution Snomed Code Not e Supervision of high risk for primigravida age 15 years or younger done 08/19/2018 [id number] Urinary tract infection in 08/23/2018 689053844 Asymptomatic - [ x] ADELSO @ 16 wksCoagulase Negaive Staphylococcus species Rx Macrobid[x] ADELSO collected 11/05 no growth Genital Molluscum contagiosum 09/17/2018 [id number] Noted on OB PE screening 08/19/2018 150708945 [x ] FTS - declined[ x] AFP-declinedGenetic testing [facility], sl [facility] Active or passive immunization 08/19/2018 963147535 - Flu vaccine[ x] Tdap 01/14/19 Anemia of 12/30/2018 06971522 Hgb 10.5 @ 28wk Teenage [id number] 18 -year-old mom/kate [facility], 20-year-old FOB; good family support Blood group O Rh(D) negative 12/30/2018 361600988 rhogam given 28 wk, neg ab screen Brayan Calculation Initial Brayan Date Initial Exam Date Initial Exam Provider Initial Ultrasound Date Last Menstrual Period Date Ultra Sound Weeks Gestation 03/24/2019 08/19/2018 [id number] 08/27/2018 06/17/2018 9 Eighteen To Twenty Week [...] in lbs Pre/Post Dialysis Refused With clothes 127.284187084306 BP Diastolic BP Location Tested BP Systolic [...] dating US. She is taking PNV from [place] [facility]. F/U 1 wk. Flowsheet Date 08/27/2018 Morales Score Blood Edema Fundus Height Fundus Units Glucose Ketones Leukocytes Nitrite Labor Signs Protein Cervic Dilation Cervic Effacement Cervic Station neg none none negative none Negative neg Type Weight in lbs Pre/Post Dialysis Refused Weight 127.471364872166 BP Diastolic BP Location Tested BP Systolic [...] in lbs Pre/Post Dialysis Refused With clothes 127.270040965781 BP Diastolic BP Location Tested BP Systolic [...] Weight in lbs Pre/Post Dialysis Refused Weight 124.783419752099 BP Diastolic BP Location Tested BP Systolic [...] in lbs Pre/Post Dialysis Refused With clothes 126.88824775618 BP Diastolic BP Location Tested BP Systolic [...] Weight in lbs Pre/Post Dialysis Refused Weight 130.610841916562 BP Diastolic BP Location Tested BP Systolic [...] in lbs Pre/Post Dialysis Refused With clothes 138.931448429162 BP Diastolic BP Location Tested BP Systolic [...] Weight in lbs Pre/Post Dialysis Refused Weight 137.542621372818 BP Diastolic BP Location Tested BP Systolic BP Type 72 116 Fetus Heart Rate Present A Present Fetus Movement A Yes Comments Doing well. baby active. c/o of rash for several month, burning located genital. Scheduled 01/16/19 for Root canal with [facility] dentistry. desired TDAP next visit.//Advised to doing this [...] in lbs Pre/Post Dialysis Refused With clothes 138.758946434084 BP Diastolic BP Location Tested BP Systolic [...] At Estimated Date of Delivery false Thalassemia (Burundian, Croatian, Mediterranean, Or Background): MCV < 80 false Neural Tube Defect (Meningom yelocele, Spina Bifida, Or Anencephaly) false Congenital Heart Defect false Down Syndrome false Nilson-Sachs (eg, Sikh, Cajun , Citizen Of [place]) false Jaycee Disease false Sickle Cell Disease Or Trait () false Hemophilia Or Other Blood Disorders false Muscular Dystrophy false Cystic Fibrosis false Omer's Chorea false Mental Retardation/Autism false If Yes, [...] Desire for Unplanned - no BC ky 08/19/2018 Alcohol NO 08/19/2018 Illicit/recreational drugs NO vicente banuelos 08/19/2018 Nutrition Reivewed 08/19/2018 Weight gain counseling ~25 lbs 08/19/2018 Intimate Partner Violence NO ky [id number] 08/19/2018 Unstable Housing No 08/19/2018 Use of any medicatio ns (including supplements, vitamins, herbs, or OTC drugs) PNV 08/19/2018 Avoidance of saunas or hot tubs [id number] 08/19/2018 Indications for ultrasonography 08/19/2018 Comminucation Barriers NO kyoun g108/19/2018 Anticipated course o f care Discussed 08/19/2018 Toxoplasmosis precau tions (cats/raw meat) No cats [id number] 08/19/2018 Sexual activity 08/19/2018 Exercise 08/19/2018 Tobacco/smoking cess ation counseling (ask, advise, assess, assist, and arrange) No 08/19/2018 Barriers to Care NO [id number] 08/19/2018 Environmental/work hazards No k 08/19/2018 Depression/Anxiety ( should be performed at least once during period) NO 08/19/2018 WIC/Hands Referral Has alreday been to th e HD 08/19/2018 Nutrition counseling ; special diet; dietary precautions (mercury, listeriosis) 08/19/2018 Dental Care / Refer to Dentist [id number] 08/19/2018 Seat belt use [id number] 08/19/2018 Childbirth classes/h ospital facilities 08/19/2018 Breast feeding [id number] 08/19/2018 Screening for aneuploidy kyo [id number] Second Trimester Discussed Date Discussion Item Discussion [...]
--- OUTSIDE RECORDS SUMMARY | 2025-05-18 16:51 | XMS_ITS | Clinical Summary ---
Author Organization Healthcare Address [address] [place] [address] Care Team Providers Care Solderer Electronic Name Role Phone Unavailable Primary Care Provider [...]
--- OUTSIDE RECORDS SUMMARY | 2025-05-18 16:51 | XMS_ITS | Clinical Summary ---
Author Organization [employer] ([place], [place], [place], [place], [place]) Address [address] [place] [address] Care Team Providers Care Field Organizer Name Role Phone Unavailable Primary Care Provider [...] Date Rob rded Speak language other than Danish at home Not on file 07/28/2023 Want [...] 2025 Influenza Vaccine (#1) 2025 Insurance [employer]ETNA [facility]
[2025-05-18 17:11] VITALS: BMI 30.6
[2025-05-18 17:25] LABS: Hematocrit 33.2 % (37.0-47.0); Hemoglobin 11.3 g/dL (12.2-16.2); Immature Granulocytes % 2.8 %; Mean Corpuscular HGB Conc 34.0 g/dL (31.8-35.4); Mean Corpuscular Hemoglobin 29.4 pg (27.0-31.2); Mean Corpuscular Volume 86.2 fl (81-99); Nucleated Red Blood Cells % 0 %; Platelet Count 267 K/mm3 (142-424); Red Blood Count 3.85 M/mm3 (4.20-5.40); Red Cell Distribution Width-SD 46.7 fL; White Blood Count 9.8 K/mm3 (4.8-10.8)
[2025-05-18 18:17] VITALS: BP 117/64; PULSE 108; RESP 17; TEMP 36.7; O2SAT 98; BMI 30.6
[2025-05-18 21:14] LABS: Microscopic, Urine URINE MICROSCOPIC (MICROSCOPIC)
[2025-05-18 21:32] LABS: Bilirubin,Urine Negative (Negative); Color,Urine YELLOW (Yellow); Glucose,Urine (UA) Negative (Negative); Ketones,Urine Negative (Negative); Leukocyte Esterase,Urine TRACE (Negative); PH,Urine 6.0 (5.0-8.5); Protein,Urine Negative (Negative); Specific Gravity, Urine 1.020 (1.005-1.030); Urobilinogen,Urine 0.2 EU/dl (0.2)
[2025-05-18 22:08] LABS: Bacteria,Urine 3+ /lpf; Mucus,Urine 3+ /lpf
[2025-05-19] MEDS: BUTORPHANOL TARTRATE 1 MG/ML VIAL IV (04:05)
[2025-05-19] MEDS: OXYTOCIN/RINGERS LACTATE 30 UNITS/500 ML BAG 999 UNITS IV (06:40)
--- NOTE | 2025-05-19 07:11 | EXP.DN ---
Delivery Note Delivery Date:: 05/19/25 Delivery Time:: 06:36 Anesthesia Type: None Was labor medically induced?: Yes Induction method: per misoprostol protocol Gestational age (weeks): 39 delivered prior to 39 weeks?: No Infant Gender: Male at 1 minute: 7 at 5 minutes: 8 LAC or MLE?: LAC Delivery Procedure:: She is a 24-year-old 2 para 1 at 39 weeks gestational age. She elected for induction of labor at 39 weeks. She received vaginal misoprostol and overnight progressed to full dilation. She delivered spontaneously a liveborn male child at 6:36 AM on the morning of May 19, 2025. On delivery of the head it was noted that there was a loose nuchal cord. This was easily reduced followed by the anterior shoulder and the rest the infant's body atraumatically. The baby was stimulated and cried spontaneously. The oropharynx and nasopharynx were bulb suction. We allowed the cord to continue to pulsate for approximately 1 minute. The cord is then doubly clamped and cut and the was placed on the mother's abdomen for further care. The nurses assigned Apgars of 7 at 1 minute and 9 at 5 minutes. We then obtained cord blood. She received IV oxytocin using gentle traction on the cord and countertraction on the fundus I was able to easily deliver the placenta intact 7 minutes after . He had a normal three-vessel cord. She had a small second-degree perineal laceration that was repaired with 3-0 Vicryl Rapide suture to the superficial tissues of the vagina and 2-0 Vicryl suture to the deep tissues of the perineum. Prior to placing sutures I had infiltrated the area with 1% Xylocaine with epinephrine. Her estimated blood loss was approximately 200 cc. Laceration:: vaginal Placental Delivery Description: Spontaneous
[2025-05-19] MEDS: IBUPROFEN 400 MG TABLET 800 MG PO ×2 (07:15→16:10)
[2025-05-19] MEDS: ACETAMINOPHEN 500MG TAB 1000 MG PO ×3 (07:15→19:39)
[2025-05-19] MEDS: WITCH HAZEL 40 PADS/BOX 1 EACH TP (07:15)
--- NOTE | 2025-05-19 07:16 | EXP.HP ---
History of Present Illness *Admission Date: 05/18/25 *Reason for visit:: Induction of labor at term *History of present illness: She is a 24-year-old 2 para 1 at 39+ weeks gestational age. She is admitted for induction of labor at term. [facility] Disclaimer: The information contained in this section may have been updated after the patient was seen, as this information can be updated by other users. Medical History Encounter for related examination in third trimester Encounter for related examination in second trimester Surgical History History of wisdom tooth extraction Family History Diabetes Cancer Social History Smoking Status: Never smoker alcohol intake: never current occupational status: unemployed Travel in the last 8 weeks?: None Have you lived/traveled outside US in past 30 days?: No Contact w/someone who lives/traveled outside US past 30 days?: No Exposure to someone with infectious disease in past 14 days?: No Do you have a fever (greater than 100.4 F or 38 C)?: No Have you tested positive for COVID-19?: No Exposed to someone with COVID-19 in past 14 days?: No Do you have a sore throat?: No Do you have a cough?: No Do you have any weakness?: No Do you have any diarrhea?: No Are you experiencing any unusual bleeding?: No Do you have any muscle aches/pain?: No Do you have any abdominal pain?: No Are you experiencing loss of taste or smell?: No Other Medical History Have you received the Flu Vaccine for this season: No Have you received the Pneumonia Vaccine: No Review of Systems Review of Systems Review of systems:: pertinent systems reviewed and negative unless documented below Meds Home Medications and Allergies Home Medications ?Medication ?Instructions ?Recorded ?Confirmed ?Type vits no.126-ferrous fum 1 tab PO DAILY 02/11/25 05/18/25 History 28 mg iron-folic acid 800 mcg tablet (Classic ) New Prescriptions to Start Prescriptions: Allergies Allergy/AdvReac Type Severity Reaction Status Date / Time No Known Allergies Allergy Verified 05/14/25 11:12 Exam Data for Last 24 hours Vital signs and Labs for Last 24 Hours: Temp Pulse Resp BP Pulse Ox O2 Del Method 98.0 F 108 H 17 117/64 98 Room Air 05/18/25 18:17 05/18/25 18:17 05/18/25 18:17 05/18/25 18:17 05/18/25 18:17 05/18/25 18:17 Laboratory Results - last 24 hr 05/18/25 17:14: WBC 9.8, RBC 3.85 L, Hgb 11.3 L, Hct 33.2 L, MCV 86.2, MCH 29.4, MCHC 34.0, RDW 14.8, Plt Count 267, MPV 9.7, Neut % (Auto) 62.2, Lymph % (Auto) 20.3, [place] % (Auto) 13.4 H, Eos % (Auto) 0.9, Baso % (Auto) 0.4, Neut # (Auto) 6.1, Lymph # (Auto) 2.0, [place] # (Auto) 1.3 H, Eos # (Auto) 0.1, Baso # (Auto) 0.0, Blood Type O Negative, Antibody Screen Negative 05/18/25 20:40: Urine Color Yellow, Urine Appearance Clear, Urine pH 6.0, Ur Specific [place] 1.020, Urine Protein Negative, Urine Glucose (UA) Negative, Urine Ketones Negative, Urine Blood 1+ A, Urine Nitrate Negative, Urine Bilirubin Negative, Urine Urobilinogen 0.2, Ur Leukocyte Esterase Trace, Urine RBC 3-5, Urine WBC 5-10, Ur Squamous Epith Cells 5-10, Urine Bacteria 3+, Urine Mucus 3+ I & O for Last 24 hours: Intake & Output 05/16/25 05/17/25 05/18/25 05/19/25 11:59 11:59 11:59 11:59 Weight 173 lb Constitutional Constitutional: no acute distress *Routine HEENT Exam Head: Present normocephalic Eye: Present EOMI and PERRL ENT: Present mucous membranes moist *Routine Neck Exam Neck: Present supple; Absent lymphadenopathy *Routine Respiratory Exam Respiratory: Present CTA bilaterally *Routine Cardiovascular Exam Cardiovascular: Present RRR *Routine Abdominal Exam Abdominal: Present soft and normoactive bowel sounds; Absent tenderness *Routine Rectal Exam Rectal:: deferred *Routine Genitalia Exam Genitalia:: deferred *Routine Extremities Exam Extremities: Absent cyanosis, clubbing or edema *Routine Skin Exam Skin: Present warm; Absent rash *Routine Neurological Exam Neurological: Present alert and oriented X3 Assessment and Plan *Assessment and plan (1) Encounter for related examination in third trimester: Status: Acute Category: Medical Code(s): Z34.93 - Encounter for supervision of normal , unspecified, third trimester Plan 1. She is admitted for induction of labor at 39 weeks and 1 day. 2. We expect a vaginal delivery.
[2025-05-19 15:31] LABS: RPR W/RFX Titers Nonreactive (Nonreactive)
[2025-05-19] MEDS: PRENATAL MULTIVITAMIN W/IRON 1 EACH PO (16:11)
[2025-05-19] MEDS: LANOLIN CREAM 40GM TP (19:40)
[2025-05-19] MEDS: SENNA 8.6MG TABLET 8.6 MG PO (19:40)
[2025-05-20] MEDS: ACETAMINOPHEN 500MG TAB 1000 MG PO (04:48)
[2025-05-20] MEDS: IBUPROFEN 400 MG TABLET 800 MG PO (04:48)
[2025-05-20 06:30] LABS: Hematocrit 33.1 % (37.0-47.0); Hemoglobin 10.8 g/dL (12.2-16.2)
[2025-05-20 08:25] VITALS: BP 119/63; PULSE 105; RESP 18; TEMP 36.7; O2SAT 97
--- NOTE | 2025-05-20 09:37 | EXP.DC.SUM ---
General Admission date:: 05/18/25 Discharge date: 05/20/25 HPI HPI HPI: She is a 24-year-old 2 para 1 at 39+ weeks gestational age. She is admitted for induction of labor at term. O Rh- blood Rubella immune Group B streptococcus negative Hospital Course Hospital Course Hospital Course: She received vaginal misoprostol overnight and subsequently progressed to full dilation. She delivered spontaneously a liveborn male child at 6:36 AM on the morning of May 19, 2025. The baby had Apgars of 7 at 1 minute and 8 at 5 minutes. Baby weighed 8 pounds 7 ounces. She had a small second-degree perineal laceration that was repaired in the usual fashion. She has done well and has remained afebrile throughout her hospitalization. She is eating and drinking and ambulating. She is breast-feeding. Her lochia is normal. She has O Rh- blood and will receive RhoGAM prior to discharge. She was given the usual instructions with respect to limiting her activity, driving and sexual activity. She will continue with her vitamins and iron. Her condition on discharge is stable and improved. Exam Data for Last 24 hours Vital signs and Labs for Last 24 Hours: Temp Pulse Resp BP Pulse Ox O2 Del Method 98.0 F 105 H 18 119/63 97 Room Air 05/20/25 08:25 05/20/25 08:25 05/20/25 08:25 05/20/25 08:25 05/20/25 08:25 05/20/25 08:25 Laboratory Results - last 24 hr 05/18/25 17:14: RPR w/Rflx to Titer Nonreactive 05/20/25 06:07: Hgb 10.8 L, Hct 33.1 L I & O for Last 24 hours: Intake & Output 05/17/25 05/18/25 05/19/25 05/20/25 11:59 11:59 11:59 11:59 Intake Total 249.75 / 249.75 250.25 / 250.25 Balance 249.75 / 249.75 250.25 / 250.25 Weight 173 lb Microbiology Reports for the Last 24 Hours: Microbiology 05/18/25 20:40 Urine,Clean Catch Urine Culture - Preliminary Constitutional Constitutional: no acute distress *Routine HEENT Exam Head: Present normocephalic *Routine Neck Exam Neck: Present full ROM *Routine Respiratory Exam Respiratory: Present normal respiratory effort Results Data Completed and Pending Labs on day of discharge: Labs from last 24 hours 05/20/25 05/18/25 06:07 17:14 Hgb 10.8 L Hct 33.1 L RPR w/Rflx to Titer Nonreactive Screen Pending Baby's Rh Status Pending Preliminary micro results at discharge 05/18/25 20:40 Urine Culture - Preliminary Urine,Clean Catch DS: Diagnosis Discharge Diagnosis (1) Encounter for related examination in third trimester: Status: Acute Code(s): Z34.93 - Encounter for supervision of normal , unspecified, third trimester (2) Normal delivery: Status: Acute Code(s): O80 - Encounter for full-term uncomplicated delivery (3) Rh D negative blood type: Status: Acute Code(s): Z67.91 - Unspecified blood type, Rh negative Meds Home Medications and Allergies Home Medications ?Medication ?Instructions ?Recorded ?Confirmed ?Type vits no.126-ferrous fum 1 tab PO DAILY 02/11/25 05/18/25 History 28 mg iron-folic acid 800 mcg tablet (Classic ) New Prescriptions to Start Prescriptions: Allergies Allergy/AdvReac Type Severity Reaction Status Date / Time No Known Allergies Allergy Verified 05/14/25 11:12 Discharge Plan Disposition Patient Disposition: Home, Self-Care Discharge Order Discharge Orders: Discharge Order (Routine); Ordered 05/20/25 Ordered By: Barrera Hebert Follow up Plan Follow up with: Barrera Hebert MD [Staff Physician, INVESTMENT UNDERWRITER] - 06/02/25 1:30 pm Prescriptions/Medication Reconciliation: Continued Classic 28 mg iron- 800 mcg tablet 1 tab PO DAILY Problem Reconciliation Problems Reviewed?: Yes Patient Discharge Instructions ACTIVITY: No heavy lifting DIET: continue same diet Additional Instructions: Nothing in the vagina for 6 weeks No heavy lifting or tub baths until released Drink plenty of fluids Patient Instructions: Depression, Hemorrhage, DI for Labor and Delivery, Vaginal , DI for Pre-eclampsia, [facility] Post Discharge Instructions Print Language: Romansh Providers Primary Care Provider: Provider,Referral Admit Provider: Annie Cabrera Attending Provider: Annie Cabrera
[2025-05-20] MEDS: MEASLES,MUMPS,RUBELLA VACCINE VIAL 0.5 ML SUBCUT (13:52)
[2025-05-20] MEDS: RHO(D) IMMUNE GLOBULIN 1,500 UNIT (300MCG) SYRINGE 300 MCG IM (13:52)
== END 2025-05-20 16:15 | disposition home or self-care (01) | DRG 807 ==
PROVIDERS: Nurse Practitioner Obstetrics & Gynecology; Admitting Provider Obstetrics & Gynecology; Visit Provider Obstetrics & Gynecology
DX: O26.893 Other specified pregnancy related conditions, third trimester (principal); Z37.0 Single live birth; Z3A.39 39 weeks gestation of pregnancy; O70.1 Second degree perineal laceration during delivery; O69.81X0 Labor and delivery complicated by cord around neck, without compression, not applicable or unspecified; Z67.41 Type O blood, Rh negative; Z23 Encounter for immunization
CPT/HCPCS: 36415; 59025; 81001; 85014; 85018; 85025; 85461; 86592; 86850; 87086; 90460; 90707; J0595; J2790